=== PATIENT | female | born 1960 | race Hispanic/Latino ===

== ENCOUNTER 2018-01-02 06:35 | Inpatient (IN) | payer OTHER ==
[2018-01-01 16:58] VITALS: BP 116/67
[2018-01-01 17:13] LABS: APPEARANCE,URINE Clear (CLEAR); BILIRUBIN,URINE Negative (NEGATIVE); COLOR,URINE Yellow (YELLOW); GLUCOSE, URINE (UA) Negative (NEGATIVE); KETONES,URINE Negative (NEGATIVE); LEUKOCYTE ESTERASE ,URINE Trace (NEGATIVE); NITRATE,URINE Negative (NEGATIVE); OCCULT BLOOD,URINE Negative (NEGATIVE); PROTEIN,URINE Negative (NEGATIVE); UROBILINOGEN,URINE 0.2 mg/dL (0.2-1.0)
[2018-01-01 17:23] LABS: INR 0.95 (0.85-1.15); PARTIAL THROMBOPLASTIN TIME 23.9 SEC (26.3-35.5)
[2018-01-01 17:34] LABS: BACTERIA,URINE Rare /HPF (None Seen); RBC,URINE 0-1 /HPF (0-1); WBC,URINE 0-1 /HPF (0-1)
[2018-01-01 17:35] LABS: SQUAMOUS EPITHELIAL CELL,UR None Seen /LPF (0-2)
[~2018-01-02] VITALS: Ht 152.4 cm; Wt 91.3 kg
[2018-01-02] VITALS (21 sets, daily range): BP systolic 111–153; BP diastolic 65–90
[~2018-01-02 06:35] MED LIST: AEC81 PO; ALEN70TA47 PO; ALPR2TAB7 PO; ATOR20TA65 PO; CARV3.12 PO; CITA40TA6 PO; CLOP75TA14 PO; CYAN500 PO; DEXL60CA3 PO; FENT-77 TD; FOLI0.8T PO; FURO40TA5 PO; HYDR-4060 PO; ISOS60TA4 PO; LEVO25TA54 PO; LISI2.5T2 PO; PANT40TA25 PO; POTA10TA14 PO; PRED5TAB PO; TIZA4TAB4 PO
[2018-01-02] MEDS: CEFAZOLIN SODIUM 1 GM VIAL IVP SCH ×2 (07:00→08:22)
[2018-01-02] MEDS ORDERED: TRANEXAMIC ACID 1000MG/10ML IV ONE (07:14)
[2018-01-02] MEDS ORDERED: CEFAZOLIN SODIUM 1 GM VIAL ONE (07:14)
[2018-01-02] MEDS ORDERED: LACTATED RINGERS 1000ML 1,000 ML IV ONE (07:30)
[2018-01-02] MEDS ORDERED: ONDANSETRON HCL 4 MG/2 ML VIAL ONE (08:13)
[2018-01-02] MEDS ORDERED: GLYCOPYRROLATE 0.2 MG/ML 5 ML VIAL ONE (08:13)
[2018-01-02] MEDS ORDERED: MIDAZOLAM HCL 1 MG/ML 2ML VIAL ONE (08:13)
[2018-01-02] MEDS ORDERED: DEXAMETHASONE SOD PHOSPHATE 10MG/ML 1ML VIAL ONE (08:13)
[2018-01-02] MEDS ORDERED: PROPOFOL 10 MG/ML 20ML VIAL IV ONE (08:13)
[2018-01-02] MEDS ORDERED: LIDOCAINE PF 2% 5ML ABBOJECT ONE (08:13)
[2018-01-02] MEDS ORDERED: FENTANYL CITRATE PF 50 MCG/1 ML 2ML VIAL ONE (08:14)
[2018-01-02] MEDS ORDERED: ROPIVACAINE 0.5% 5MG/ML 30ML IJ ONE (08:19)
[2018-01-02] MEDS ORDERED: EPHEDRINE-NS PF 50MG/5ML SYRINGE IV ONE (08:24)
[2018-01-02] MEDS ORDERED: CEFAZOLIN SODIUM 1 GM VIAL IRRIG ONE (08:58)
[2018-01-02] MEDS ORDERED: BUPIVACAINE/EPI/PF 0.25% 30ML VIAL IJ ONE (09:16)
[2018-01-02] MEDS ORDERED: DIPHENHYDRAMINE HCL 25 MG CAPSULE PO PRN (10:15)
[2018-01-02] MEDS ORDERED: POTASSIUM CHLORIDE 20MEQ/100ML 100 ML IV PRN (10:15)
[2018-01-02] MEDS ORDERED: DiphenhydrAMINE HCL 50 MG/ML VIAL IVP PRN (10:15)
[2018-01-02] MEDS ORDERED: TEMAZEPAM 15 MG CAPSULE PO PRN (10:15)
[2018-01-02] MEDS ORDERED: PROMETHAZINE HCL 25 MG/ML 1ML AMPULE IM PRN (10:15)
[2018-01-02] MEDS ORDERED: POTASSIUM CHLORIDE 10% ELIXIR 20 MEQ/15 ML UDCUP PO PRN (10:15)
[2018-01-02] MEDS ORDERED: FERROUS FUMARATE 324 MG TABLET PO PRN (10:15)
[2018-01-02] MEDS ORDERED: LIDOCAINE HCL-MPF 1% 2ML VIAL IVP PRN (10:15)
[2018-01-02] MEDS ORDERED: CALCIUM CARBONATE 500 MG TABLET PO PRN (10:15)
[2018-01-02] MEDS ORDERED: MEPERIDINE-PF 50 MG/ML SYG ONE (10:43)
[2018-01-02] MEDS ORDERED: MORPHINE SULFATE 2 MG/ML 1ML SYG ONE (11:35)
[2018-01-02] MEDS: PSYLLIUM SEED 1 EACH PACKET PO SCH (12:00)
[2018-01-02] MEDS: SODIUM CHLORIDE 0.9% 1000ML 1,000 ML IV SCH ×2 (12:51→21:15)
[2018-01-02] MEDS: HYDROCODONE/ACETAMINOPHEN 5/325 MG TAB PO PRN ×2 (12:56→15:43)
[2018-01-02] MEDS: KETOROLAC TROMETHAMINE 15MG/ML IV PRN ×2 (12:56→21:20)
[2018-01-02] MEDS: CEFAZOLIN 3GM /D5W 100ML 100 ML IV SCH ×2 (15:43→23:42)
[2018-01-02] MEDS ORDERED: TIZANIDINE HCL 4 MG PO PRN (17:15)
[2018-01-02] MEDS: CELECOXIB 200 MG CAP PO SCH (21:14)
[2018-01-02] MEDS: ATORVASTATIN CALCIUM 20 MG TABLET PO SCH (21:14)
[2018-01-02] MEDS: ASPIRIN 325 MG TABLET PO SCH (21:14)
[2018-01-02] MEDS: PANTOPRAZOLE SODIUM 40 MG TABLET.DR PO SCH (21:14)
[2018-01-02] MEDS: ALPRAZOLAM 1 MG TAB PO SCH (21:15)
[2018-01-02] MEDS: CARVEDILOL 3.125 MG TABLET PO SCH (21:16)
[2018-01-03 00:07] VITALS: BP 124/71
[2018-01-03] MEDS: KETOROLAC TROMETHAMINE 15MG/ML IV PRN ×3 (03:49→20:39)
[2018-01-03 04:35] VITALS: BP 132/72
[2018-01-03] MEDS: SODIUM CHLORIDE 0.9% 1000ML 1,000 ML IV SCH (05:20)
[2018-01-03] MEDS ORDERED: LEVOTHYROXINE 25 MCG TABLET ONE (05:22)
[2018-01-03 05:51] LABS: CREATININE 0.8 mg/dL (0.5-1.5); POTASSIUM 3.9 mmol/L (3.5-5.1)
[2018-01-03 06:03] LABS: HEMATOCRIT 29.4 % (36-48); MEAN CORPUSCULAR HGB CONC 34.6 g/dL (32.0-36.0); MEAN CORPUSCULAR VOLUME 89.6 fL (79-99); PLATELET COUNT (AUTO) 186 K/uL (130-400); RED BLOOD CELL COUNT(AUTO) 3.28 MIL/uL (4.00-5.50); RED CELL DISTRIBUTION WIDTH 14.6 % (11.0-15.5)
[2018-01-03] MEDS: LEVOTHYROXINE 25 MCG TABLET PO SCH (06:19)
[2018-01-03 07:37] VITALS: BP 148/79
[2018-01-03] MEDS: ASPIRIN 325 MG TABLET PO SCH ×2 (08:00→20:35)
[2018-01-03] MEDS: CELECOXIB 200 MG CAP PO SCH ×2 (08:00→20:35)
[2018-01-03] MEDS: FOLIC ACID 1 MG TABLET PO SCH (08:01)
[2018-01-03] MEDS: CARVEDILOL 3.125 MG TABLET PO SCH ×2 (08:01→20:37)
[2018-01-03] MEDS: LISINOPRIL 2.5 MG TABLET PO SCH (08:02)
[2018-01-03] MEDS: FUROSEMIDE 40 MG TABLET PO SCH (08:02)
[2018-01-03] MEDS: POLYETHYLENE GLYCOL 3350 17 GM POWD.PACK PO SCH (08:02)
[2018-01-03] MEDS: CLOPIDOGREL BISULFATE 75 MG TAB PO SCH (08:02)
[2018-01-03] MEDS: POTASSIUM CHLORIDE 10 MEQ/TAB.SA PO SCH (08:02)
[2018-01-03] MEDS: HYDROCODONE/ACETAMINOPHEN 5/325 MG TAB PO PRN ×3 (08:03→20:59)
[2018-01-03] MEDS: PREDNISONE 5 MG TABLET PO SCH (08:05)
[2018-01-03] MEDS: ISOSORBIDE MONO 60 MG TAB.SR PO SCH (09:00)
[2018-01-03] MEDS ORDERED: PANTOPRAZOLE SODIUM 40 MG TABLET.DR PO SCH (09:00)
[2018-01-03] MEDS: ALPRAZOLAM 1 MG TAB PO SCH ×3 (09:00→20:36)
[2018-01-03] MEDS ORDERED: FENTANYL 37.5 MCG TD SCH (09:00)
[2018-01-03 11:03] VITALS: BP 132/66
[2018-01-03] MEDS: PSYLLIUM SEED 1 EACH PACKET PO SCH (11:20)
[2018-01-03 15:22] VITALS: BP 125/64
[2018-01-03] MEDS: PANTOPRAZOLE SODIUM 40 MG TABLET.DR PO SCH (20:35)
[2018-01-03] MEDS: ATORVASTATIN CALCIUM 20 MG TABLET PO SCH (20:35)
[2018-01-03 21:12] VITALS: BP 103/60
[2018-01-04] VITALS (7 sets, daily range): BP systolic 90–140; BP diastolic 51–72
[2018-01-04] MEDS: LEVOTHYROXINE 25 MCG TABLET PO SCH (06:01)
[2018-01-04 06:16] LABS: HEMATOCRIT 30.1 % (36-48); MEAN CORPUSCULAR HGB CONC 33.9 g/dL (32.0-36.0); MEAN CORPUSCULAR VOLUME 88.6 fL (79-99); PLATELET COUNT (AUTO) 171 K/uL (130-400); RED CELL DISTRIBUTION WIDTH 14.5 % (11.0-15.5)
[2018-01-04 06:19] LABS: POTASSIUM 3.6 mmol/L (3.5-5.1)
[2018-01-04] MEDS: KETOROLAC TROMETHAMINE 15MG/ML IV PRN (07:37)
[2018-01-04] MEDS: ISOSORBIDE MONO 60 MG TAB.SR PO SCH (09:00)
[2018-01-04] MEDS: LISINOPRIL 2.5 MG TABLET PO SCH (09:00)
[2018-01-04] MEDS: ASPIRIN 325 MG TABLET PO SCH ×2 (09:44→20:43)
[2018-01-04] MEDS: POTASSIUM CHLORIDE 10 MEQ/TAB.SA PO SCH (09:45)
[2018-01-04] MEDS: ALPRAZOLAM 1 MG TAB PO SCH ×3 (09:45→20:43)
[2018-01-04] MEDS: CLOPIDOGREL BISULFATE 75 MG TAB PO SCH (09:46)
[2018-01-04] MEDS: FOLIC ACID 1 MG TABLET PO SCH (09:46)
[2018-01-04] MEDS: CARVEDILOL 3.125 MG TABLET PO SCH ×2 (09:46→20:44)
[2018-01-04] MEDS: CELECOXIB 200 MG CAP PO SCH ×2 (09:47→20:43)
[2018-01-04] MEDS: FUROSEMIDE 40 MG TABLET PO SCH (09:47)
[2018-01-04] MEDS: POLYETHYLENE GLYCOL 3350 17 GM POWD.PACK PO SCH (09:47)
[2018-01-04] MEDS: PREDNISONE 5 MG TABLET PO SCH (09:47)
[2018-01-04] MEDS: POTASSIUM CHLORIDE 20 MEQ ERTAB PO PRN ×2 (09:52→11:24)
[2018-01-04] MEDS ORDERED: BISACODYL 5 MG TABLET.DR PO PRN (10:15)
[2018-01-04] MEDS: PSYLLIUM SEED 1 EACH PACKET PO SCH (11:24)
[2018-01-04] MEDS: HYDROCODONE/ACETAMINOPHEN 5/325 MG TAB PO PRN ×2 (11:28→20:44)
[2018-01-04] MEDS: ATORVASTATIN CALCIUM 20 MG TABLET PO SCH (20:43)
[2018-01-04] MEDS: PANTOPRAZOLE SODIUM 40 MG TABLET.DR PO SCH (20:43)
[2018-01-05] VITALS (7 sets, daily range): BP systolic 90–120; BP diastolic 54–71
[2018-01-05 06:24] LABS: HEMATOCRIT 27.4 % (36-48); MEAN CORPUSCULAR HEMOGLOBIN 30.9 pg (27.0-33.0); MEAN CORPUSCULAR VOLUME 88.2 fL (79-99); PLATELET COUNT (AUTO) 172 K/uL (130-400); RED CELL DISTRIBUTION WIDTH 14.4 % (11.0-15.5)
[2018-01-05] MEDS: LEVOTHYROXINE 25 MCG TABLET PO SCH (06:30)
[2018-01-05 06:32] LABS: POTASSIUM 3.8 mmol/L (3.5-5.1)
[2018-01-05] MEDS: HYDROCODONE/ACETAMINOPHEN 5/325 MG TAB PO PRN ×2 (06:33→19:23)
[2018-01-05] MEDS: ALPRAZOLAM 1 MG TAB PO SCH ×2 (09:00→13:29)
[2018-01-05] MEDS: FUROSEMIDE 40 MG TABLET PO SCH (09:00)
[2018-01-05] MEDS: ISOSORBIDE MONO 60 MG TAB.SR PO SCH (09:00)
[2018-01-05] MEDS: LISINOPRIL 2.5 MG TABLET PO SCH (09:00)
[2018-01-05] MEDS: CELECOXIB 200 MG CAP PO SCH (10:08)
[2018-01-05] MEDS: ASPIRIN 325 MG TABLET PO SCH (10:08)
[2018-01-05] MEDS: POTASSIUM CHLORIDE 10 MEQ/TAB.SA PO SCH (10:10)
[2018-01-05] MEDS: CLOPIDOGREL BISULFATE 75 MG TAB PO SCH (10:10)
[2018-01-05] MEDS: FOLIC ACID 1 MG TABLET PO SCH (10:10)
[2018-01-05] MEDS: PREDNISONE 5 MG TABLET PO SCH (10:10)
[2018-01-05] MEDS: POLYETHYLENE GLYCOL 3350 17 GM POWD.PACK PO SCH (10:11)
[2018-01-05] MEDS: KETOROLAC TROMETHAMINE 15MG/ML IV PRN (10:11)
[2018-01-05] MEDS ORDERED: BISACODYL 10 MG SUPP.RECT RC PRN (10:15)
[2018-01-05] MEDS: CARVEDILOL 3.125 MG TABLET PO SCH (12:08)
[2018-01-05] MEDS: PSYLLIUM SEED 1 EACH PACKET PO SCH (12:09)
[2018-01-05] MEDS ORDERED: ASPI-1012 PO (14:10)
== END 2018-01-05 20:30 | DRG 470 ==
LOC: DAHIP 06:35 → EDSTATUS 09:10 → 4AH 12:16
PROVIDERS: ADMIT Orthopaedic Surgery; ATTEND Orthopaedic Surgery
PROC: 0SRC0J9 Replacement of Right Knee Joint with Synthetic Substitute, Cemented, Open Approach (ICD-10-PCS; principal; 2018-01-02 08:11)
DX: M17.11 Unilateral primary osteoarthritis, right knee (principal); M06.9 Rheumatoid arthritis, unspecified; I11.9 Hypertensive heart disease without heart failure; N18.9 Chronic kidney disease, unspecified; F32.9 Major depressive disorder, single episode, unspecified; M81.0 Age-related osteoporosis without current pathological fracture; K21.9 Gastro-esophageal reflux disease without esophagitis; E66.9 Obesity, unspecified; G89.29 Other chronic pain; Z96.652 Presence of left artificial knee joint; Z68.39 Body mass index [BMI] 39.0-39.9, adult; Z98.61 Coronary angioplasty status; Z88.8 Allergy status to other drugs, medicaments and biological substances; Z82.3 Family history of stroke; Z83.3 Family history of diabetes mellitus; Z80.9 Family history of malignant neoplasm, unspecified; Z82.49 Family history of ischemic heart disease and other diseases of the circulatory system
CPT/HCPCS: 36415; 80048; 81001; 85027; 85610; 85730; 88305; 88311; 97039; A4218; C1713; J0690; J1100; J1885; J2001; J2175; J2250; J2405; J2704; J2795; J3010; J3490; J7030; J7120; J7512

== ENCOUNTER 2018-02-23 10:56 | Emergency (ER) | payer OTHER ==
[~2018-02-23 10:56] MED LIST changes: -AEC81 PO; +ASPI-1012 PO
[2018-02-23 11:26] LABS: BASOPHILS % (AUTO) 0.4 % (0.0-5.0); EOSINOPHILS % (AUTO) 0.9 % (0.0-8.0); HEMATOCRIT 29.5 % (36-48); LYMPHOCYTES % (AUTO) 9.2 % (21.0-51.0); MEAN CORPUSCULAR HEMOGLOBIN 30.4 pg (27.0-33.0); MEAN CORPUSCULAR HGB CONC 34.9 g/dL (32.0-36.0); MEAN CORPUSCULAR VOLUME 87.3 fL (79-99); MONOCYTES % (AUTO) 10.2 % (3.0-13.0); NEUTROPHILS % (AUTO) 79.3 % (40.0-77.0); PLATELET COUNT (AUTO) 211 K/uL (130-400); RED BLOOD CELL COUNT(AUTO) 3.37 MIL/uL (4.00-5.50); RED CELL DISTRIBUTION WIDTH 14.2 % (11.0-15.5); WHITE BLOOD COUNT (AUTO) 5.7 K/uL (4.8-10.8)
[2018-02-23 11:27] LABS: POTASSIUM 3.5 mmol/L (3.5-5.1)
[2018-02-23 11:44] LABS: ALBUMIN 2.9 g/dL (3.5-5.0); BILIRUBIN,TOTAL 0.2 mg/dL (0.2-1.0); CREATINE KINASE MB 1.4 ng/mL (0.5-3.6); TOTAL PROTEIN, SERUM 6.8 g/dL (6.0-8.3)
[2018-02-23 12:15] LABS: MAGNESIUM 1.3 mg/dL (1.80-2.40); PHOSPHORUS 3.4 mg/dL (2.5-4.9)
[2018-02-23] MEDS ORDERED: MAGNESIUM OXIDE 400 MG TABLET PO ONE (14:25)
== END 2018-02-23 14:45 | disposition home or self-care (01) ==
LOC: EDH 10:56
DX: R55 Syncope and collapse (principal); E83.42 Hypomagnesemia; I25.10 Atherosclerotic heart disease of native coronary artery without angina pectoris; I10 Essential (primary) hypertension; M32.9 Systemic lupus erythematosus, unspecified; M06.9 Rheumatoid arthritis, unspecified; Z90.49 Acquired absence of other specified parts of digestive tract; Z88.1 Allergy status to other antibiotic agents
CPT/HCPCS: 36415; 80053; 82550; 82553; 83735; 84100; 84484; 85025; 93005; 96360

== ENCOUNTER → 2020-01-17 | Outpatient (CLI) | payer OTHER ==
[~2020-01-17] MED LIST changes: +ALEN70TA10 PO; -ALEN70TA47 PO; -CYAN500 PO; +CYAN500T63 PO; -TIZA4TAB4 PO; +TIZA4TAB5 PO
== END | disposition home or self-care (01) ==
LOC: OIH 14:42
PROVIDERS: ATTEND Internal Medicine
DX: M06.4 Inflammatory polyarthropathy (principal)
CPT/HCPCS: 73130; 73630

== ENCOUNTER → 2021-08-09 | Outpatient (CLI) | payer OTHER ==
[~2021-08-09] MED LIST changes: -ALEN70TA10 PO; +ALEN70TA80 PO; -CYAN500T63 PO; +CYAN500T9 PO; -FOLI0.8T PO; +FOLI0.8T3 PO; -ISOS60TA4 PO; +ISOS60TA77 PO; +LISI2.5T13 PO; -LISI2.5T2 PO; -PANT40TA25 PO; +PANT40TA54 PO
== END | disposition home or self-care (01) ==
LOC: SHCH 14:43
PROVIDERS: ATTEND Internal Medicine Cardiovascular Disease
DX: I51.7 Cardiomegaly (principal)
CPT/HCPCS: 93306; 93356

== ENCOUNTER 2021-08-29 06:46 | Day surgery (SDC) | payer OTHER ==
[2021-08-23 09:22] LABS: BASOPHILS % (AUTO) 0.9 % (0.0-5.0); EOSINOPHILS % (AUTO) 2.1 % (0.0-8.0); HEMATOCRIT 39.1 % (36-48); LYMPHOCYTES % (AUTO) 17.5 % (21.0-51.0); MEAN CORPUSCULAR HEMOGLOBIN 28.8 pg (27.0-33.0); MEAN CORPUSCULAR HGB CONC 31.5 g/dL (32.0-36.0); MEAN CORPUSCULAR VOLUME 91.6 fL (79-99); NEUTROPHILS % (AUTO) 68.1 % (40.0-77.0); PLATELET COUNT (AUTO) 266 K/uL (130-400); RED BLOOD CELL COUNT(AUTO) 4.27 MIL/uL (4.00-5.50); RED CELL DISTRIBUTION WIDTH 13.4 % (11.0-15.5); WHITE BLOOD COUNT (AUTO) 5.4 K/uL (4.8-10.8)
[2021-08-23 09:24] LABS: APPEARANCE,URINE Cloudy (CLEAR); BILIRUBIN,URINE Negative (NEGATIVE); COLOR,URINE Yellow (YELLOW); GLUCOSE, URINE (UA) Negative (NEGATIVE); KETONES,URINE Negative (NEGATIVE); LEUKOCYTE ESTERASE ,URINE Large (NEGATIVE); NITRATE,URINE Positive (NEGATIVE); OCCULT BLOOD,URINE Negative (NEGATIVE); PH,URINE 7.5 (5.0-8.0); PROTEIN,URINE Negative (NEGATIVE)
[2021-08-23 09:33] LABS: PROTHROMBIN TIME 10.9 SEC (9.6-11.6)
[2021-08-23 09:34] LABS: PARTIAL THROMBOPLASTIN TIME 25.8 SEC (26.3-35.5); POTASSIUM 4.1 mmol/L (3.5-5.1)
[2021-08-23 09:43] LABS: CREATININE 0.9 mg/dL (0.5-1.5)
[2021-08-23 09:50] LABS: BACTERIA,URINE Moderate /HPF (None Seen)
[2021-08-23 09:51] LABS: RBC,URINE 0-1 /HPF (0-1); SQUAMOUS EPITHELIAL CELL,UR 0-2 /HPF (0-2)
[2021-08-28 15:47] VITALS: BP 105/58
[2021-08-29] VITALS (10 sets, daily range): BP systolic 98–118; BP diastolic 56–62
[~2021-08-29] VITALS: Ht 152.4 cm; Wt 70.8 kg
[~2021-08-29 06:46] MED LIST changes: +ACET-2743 PO; -ALEN70TA80 PO; -ALPR2TAB7 PO; +APIX5TAB PO; -ASPI-1012 PO; -ATOR20TA65 PO; +ATOR40TA71 PO; +BUSP10TA3 PO; -CARV3.12 PO; -CITA40TA6 PO; -CLOP75TA14 PO; -CYAN500T9 PO; -DEXL60CA3 PO; -FENT-77 TD; -FOLI0.8T3 PO; +FURO20TA4 PO; -FURO40TA5 PO; +GABA-529 PO; -HYDR-4060 PO; -ISOS60TA77 PO; +METO-408 PO; +MIRT-22 PO; +OMEP40CA21 PO; -PANT40TA54 PO; -TIZA4TAB5 PO; +VENL-63 PO; +iron PO
[2021-08-29] MEDS ORDERED: 0.9%NACL 1000ML 1,000 ML IV ONE (07:13)
[2021-08-29] MEDS ORDERED: IOHEXOL 350 MG/ML 100ML INFUS..BTL IV ONE (08:13)
[2021-08-29] MEDS ORDERED: IOHEXOL-350 50ML VIAL IV ONE (08:13)
[2021-08-29] MEDS ORDERED: NITROGLYCERIN 50MG VIAL IV ONE (08:13)
[2021-08-29] MEDS ORDERED: LIDOCAINE HCL 400MG/20ML VIAL ONE (08:13)
[2021-08-29] MEDS ORDERED: IOHEXOL-350 75 ML VIAL IV ONE (09:13)
== END 2021-08-29 14:30 | disposition home or self-care (01) ==
LOC: DAH 06:46
PROVIDERS: ATTEND Internal Medicine Cardiovascular Disease
DX: I25.10 Atherosclerotic heart disease of native coronary artery without angina pectoris (principal); I25.810 Atherosclerosis of coronary artery bypass graft(s) without angina pectoris; I25.5 Ischemic cardiomyopathy; I25.82 Chronic total occlusion of coronary artery; I11.0 Hypertensive heart disease with heart failure; I50.23 Acute on chronic systolic (congestive) heart failure; I33.0 Acute and subacute infective endocarditis; I25.2 Old myocardial infarction; M06.9 Rheumatoid arthritis, unspecified; E78.5 Hyperlipidemia, unspecified; E03.9 Hypothyroidism, unspecified; M32.9 Systemic lupus erythematosus, unspecified; Z87.891 Personal history of nicotine dependence; Z82.49 Family history of ischemic heart disease and other diseases of the circulatory system; Z83.3 Family history of diabetes mellitus; Z80.0 Family history of malignant neoplasm of digestive organs; Z82.0 Family history of epilepsy and other diseases of the nervous system; Z83.2 Family history of diseases of the blood and blood-forming organs and certain disorders involving the immune mechanism; Z90.49 Acquired absence of other specified parts of digestive tract; Z98.51 Tubal ligation status; Z86.73 Personal history of transient ischemic attack (TIA), and cerebral infarction without residual deficits; Z98.890 Other specified postprocedural states; Z79.899 Other long term (current) drug therapy; Z79.01 Long term (current) use of anticoagulants; Z95.5 Presence of coronary angioplasty implant and graft; Z88.8 Allergy status to other drugs, medicaments and biological substances
CPT/HCPCS: 36415; 71045; 80048; 81001; 85025; 85610; 85730; 87077; 87088; 87186; 93005; 93459; C1760; C1894; J1644; J3490 ×2; J7030; Q9965; Q9967 ×2

== ENCOUNTER → 2022-07-09 | Outpatient (CLI) | payer OTHER | END | disposition home or self-care (01) | LOC: SHCH 10:55 | PROVIDERS: ATTEND Internal Medicine Cardiovascular Disease | DX: I34.0 Nonrheumatic mitral (valve) insufficiency (principal); I11.9 Hypertensive heart disease without heart failure; I48.91 Unspecified atrial fibrillation; I25.10 Atherosclerotic heart disease of native coronary artery without angina pectoris; I25.2 Old myocardial infarction; Z95.5 Presence of coronary angioplasty implant and graft; Z95.1 Presence of aortocoronary bypass graft | CPT/HCPCS: 93306 ==

== ENCOUNTER → 2022-08-05 | Outpatient (CLI) | payer OTHER ==
[2022-08-05 12:45] LABS: CREATININE 0.9 mg/dL (0.5-1.5); POTASSIUM 4.4 mmol/L (3.5-5.1)
== END | disposition home or self-care (01) ==
LOC: LAB 09:38
PROVIDERS: ATTEND Internal Medicine Cardiovascular Disease
DX: I10 Essential (primary) hypertension (principal)
CPT/HCPCS: 36415; 80048

== ENCOUNTER → 2023-03-07 | Outpatient (CLI) | payer OTHER ==
[2023-03-07 12:34] LABS: POTASSIUM 4.6 mmol/L (3.5-5.1)
== END | disposition home or self-care (01) ==
LOC: LAB 10:03
PROVIDERS: ATTEND Internal Medicine Cardiovascular Disease
DX: I10 Essential (primary) hypertension (principal)
CPT/HCPCS: 36415; 80048

== ENCOUNTER → 2023-03-14 | Outpatient (CLI) | payer OTHER ==
[2023-03-14 12:12] LABS: CREATININE 0.9 mg/dL (0.5-1.5); POTASSIUM 4.3 mmol/L (3.5-5.1)
== END | disposition home or self-care (01) ==
LOC: LAB 09:30
PROVIDERS: ATTEND Internal Medicine Cardiovascular Disease
DX: I10 Essential (primary) hypertension (principal)
CPT/HCPCS: 36415; 80048

== ENCOUNTER → 2023-03-21 | Outpatient (CLI) | payer OTHER ==
[2023-03-21 12:29] LABS: CREATININE 0.9 mg/dL (0.5-1.5); POTASSIUM 4.3 mmol/L (3.5-5.1)
== END | disposition home or self-care (01) ==
LOC: LAB 09:45
PROVIDERS: ATTEND Internal Medicine Cardiovascular Disease
DX: I10 Essential (primary) hypertension (principal)
CPT/HCPCS: 36415; 80048

== ENCOUNTER → 2023-04-04 | Outpatient (CLI) | payer OTHER ==
[2023-04-04 12:37] LABS: CREATININE 1.1 mg/dL (0.5-1.5); POTASSIUM 4.6 mmol/L (3.5-5.1)
== END | disposition home or self-care (01) ==
LOC: LAB 10:08
PROVIDERS: ATTEND Internal Medicine Cardiovascular Disease
DX: I10 Essential (primary) hypertension (principal)
CPT/HCPCS: 36415; 80048

== ENCOUNTER 2023-11-07 12:08 | Emergency (ER) | payer OTHER ==
[~2023-11-07] VITALS: Ht 152.4 cm; Wt 56.7 kg
[2023-11-07 13:09] LABS: HEMATOCRIT 36.2 % (36-48); MEAN CORPUSCULAR HEMOGLOBIN 30.8 pg (27.0-33.0); MEAN CORPUSCULAR HGB CONC 31.5 g/dL (32.0-36.0); MEAN CORPUSCULAR VOLUME 97.8 fL (79-99); PLATELET COUNT (AUTO) 214 K/uL (130-400); RED CELL DISTRIBUTION WIDTH 15.3 % (11.0-15.5)
[2023-11-07 13:23] LABS: ALBUMIN 2.5 g/dL (3.5-5.0); POTASSIUM 3.1 mmol/L (3.5-5.1)
[2023-11-07 13:28] LABS: BILIRUBIN,TOTAL 0.5 mg/dL (0.2-1.0); TOTAL PROTEIN, SERUM 5.9 g/dL (6.0-8.3)
[2023-11-07] MEDS ORDERED: KCL 20 MEQ ERTAB PO ONE (14:30)
[2023-11-07] MEDS ORDERED: LACTATED RINGERS 1000ML 500 ML IV ONE (14:30)
[2023-11-07] MEDS ORDERED: POTA-364 PO (14:33)
[2023-11-07 14:49] LABS: BASOPHILS # (AUTO) 0.05 K/uL (0.00-0.20); BASOPHILS % (AUTO) 0.6 % (0.0-5.0); IMMATURE GRANULOCYTE ABSOLUTE 0.12 K/uL (0-1); LYMPHOCYTES # (AUTO) 0.4 K/uL (1.0-4.8); LYMPHOCYTES % (AUTO) 5.4 % (21.0-51.0); MONOCYTES # (AUTO) 0.2 K/uL (0.1-1.0); MONOCYTES % (AUTO) 2.9 % (3.0-13.0); NEUTROPHILS % (AUTO) 89.6 % (40.0-77.0)
[2023-11-07 16:47] VITALS: BP 100/59; PULSE 85; RESP 18; O2SAT 98
== END 2023-11-07 17:48 | disposition home or self-care (01) ==
LOC: EDH 12:08
DX: I95.2 Hypotension due to drugs (principal); E87.6 Hypokalemia; I10 Essential (primary) hypertension; E03.9 Hypothyroidism, unspecified; Z79.899 Other long term (current) drug therapy; Z90.49 Acquired absence of other specified parts of digestive tract; Z98.890 Other specified postprocedural states; Z88.8 Allergy status to other drugs, medicaments and biological substances
CPT/HCPCS: 99284; 70450; 96360; 96361; 84484; 80053; 85025; 36415; 70486; 93005; J7120

== ENCOUNTER → 2023-12-10 | Outpatient (CLI) | payer OTHER ==
[~2023-12-10] MED LIST changes: +POTA-364 PO
== END | disposition home or self-care (01) ==
LOC: SHCH 08:20
PROVIDERS: ATTEND Internal Medicine Cardiovascular Disease
DX: I70.202 Unspecified atherosclerosis of native arteries of extremities, left leg (principal)
CPT/HCPCS: 93925

== ENCOUNTER 2024-09-10 19:46 | Inpatient (IN) | payer OTHER ==
[~2024-09-10] VITALS: Ht 149.9 cm; Wt 62.1 kg
[~2024-09-10 19:46] MED LIST changes: +rocuRONium bROMide 10MG/1ML 5ML VL IV ONE
--- NOTE | 2024-09-10 20:04 | ERN ---
ED Note History of Present Illness Stated Complaint: GBW, SOB X 2 DAYS Chief Complaint: Dyspnea/Respdistress Time Seen by MD: 19:51 Dictation: This is a 63-year-old female who was brought in by EMS with complaints of shortness of breath for 2 days with cough and congestion associated with generalized weakness. Very poor historian and appeared extremely sick at presentation. This has been going on overall for 2 days. She does report some mucopurulent sputum. No history of any syncope Reports feeling hot . Temperature 102.6, heart rate 133, respiratory rate 37, blood pressure 115/74 with a pulse oximetry of 80-85% on room air Her chronic medical problems include atrial fibrillation on long-term apixaban, coronary artery disease status post stent to LAD, aortic valve replacement s urgery, hypothyroidism, hypercholesterolemia. Rheumatoid arthritis and systemic lupus erythematosus Allergies: Coded Allergies: ciprofloxacin (Unverified Allergy, Severe, SHUTS DOWN ORGANS, 03/11/13) ciprofloxacin HCl (Unverified Allergy, Severe, SHUTS DOWN ORGANS, 03/11/13) vancomycin (Unverified Allergy, Unknown, 08/28/21) Home Meds Active Scripts Potassium Chloride (Potassium Chloride) 20 Meq Tablet.er, 20 MEQ PO DAILY for 10 Days, #10 TAB 0 Refills Prov:NANCY MCINTOSH MD 11/07/23 Reported Medications Gabapentin (Gabapentin) 100 Mg Capsule, 100 MG PO BID, CAP 08/28/21 [iron] No Conflict Check, 28 MG PO AM 08/28/21 Furosemide (Furosemide) 20 Mg Tablet, 20 MG PO AM, TAB 08/28/21 Metoprolol Succinate (Metoprolol Succinate) 25 Mg Tab.er.24h, 25 MG PO BID, TAB 08/28/21 Mirtazapine (Mirtazapine) 15 Mg Tablet, 15 MG PO HS, TAB 08/28/21 Atorvastatin Calcium (Atorvastatin Calcium) 40 Mg Tablet, 40 MG PO AM, TAB 08/28/21 Buspirone HCl (Buspirone HCl) 10 Mg Tablet, 10 MG PO HS, TAB 08/28/21 Prednisone (Prednisone) 5 Mg Tablet, 5 MG PO AM, TAB 08/28/21 Venlafaxine HCl (Venlafaxine HCl ER) 150 Mg Cap.er.24h, 150 MG PO AM, CAPSULE.DR 08/28/21 Acetaminophen (Tylenol Extra Strength) 500 Mg Tablet, 500 MG PO AD PRN for pain, TAB 08/28/21 Omeprazole (Omeprazole) 40 Mg Capsule.dr, 40 MG PO BID, CAP 08/28/21 Apixaban (Eliquis) 5 Mg Tablet, 5 MG PO BID, TAB 08/28/21 Levothyroxine Sodium (Levothyroxine Sodium) 25 Mcg Tablet, 25 MCG PO DAILY, TAB 09/30/17 Potassium Chloride (Potassium Chloride) 10 Meq Tablet.er, 10 MEQ PO DAILY, TAB 09/30/17 Lisinopril (Lisinopril) 2.5 Mg Tablet, 2.5 MG PO DAILY, TAB 10/12/14 Past Medical History Past Medical History: CVA, Heart Disease, Hypertension, Hypothyroid Additional Past Medical Hx: RHEUMATOID ARTHRITIS, LUPUS Surgical History: Cholecystectomy, CABG, Pacer/AICD Surgical History Other: BILATERAL KNEES Family History: Negative Social History: Negative History: Not Applicable RN Note Reviewed/Agreed w/PFSH: Yes Review of System Dictation Constitutional: Positive for fever,chills, and weight loss, malaise and w eakness Eyes: Negative for injury, pain,redness, and discharge ENT: Negative for injury,pain or swelling Cardiovascular: Negative for chest pain, palpitations, and edema Respiratory: Positive for shortness of breath, cough, and denies wheezing, Abdomen/GI: Negative for abdominal pain, nausea, vomiting, diarrhea, and constipation Back: Negative for injury and pain : Negative for injury, bleeding and discharge MS/Extremity: Negative for injury and deformity Skin: Negative for rash, and discoloration Neuro: Negative for headache, weakness, numbness, tingling, and seizure Psych: Negative for suicide ideation, homicidal ideation, and hallucinations Initial Vital Sign VS Vital Signs Date Time Temp Pulse Resp B/P (MAP) Pulse Ox O2 Delivery O2 Flow Rate FiO2 09/10/24 19:53 102.6 133 37 115/74 99 Nasal Cannula* 2 28 Physical Exam Dictation General: awake, alert, mildly tachypneic, very ill-appearing, toxic Head/Face: Normocephalic, atraumatic Eyes: PERRL, EOMI, vision at baseline ENT: oral cavity clear, TMs dry, no signs of infection Neck: Trachea midline, supple, no nuchal rigidity Cardiovascular: Tachycardic, No MRGs, no JVD Respiratory: Bilateral diffuse coarse rhonchi Abdomen: Soft, non-tender, non-distended, normal bowel sounds, no guarding or rebound. Skin: Warm, dry, normal turgor, no rash diffuse ecchymosis all over the body MS/Extremity: Pulses equal, no cyanosis, neurovascular intact, FROM Neuro: COAx4, GCS 15, strength 5/5, CN 2-12 intact, extremely weak and sick-I did not test her gait Psych: Normal behavior, mood, and affect normal Extremities-trace edema without any palpable cords, Homans sign is negative Results (Laboratory/Radiology) Laboratory/Radiology Laboratory Tests Test 09/10/24 19:55 09/10/24 20:11 09/10/24 20:22 White Blood Count 14.2 K/uL (4.8-10.8) H Red Blood Count 3.91 MIL/uL (4.00-5.50) L Hemoglobin 12.7 g/dL (12.0-16.0) Hematocrit 37.8 % (36-48) Mean Corpuscular Volume 96.7 fL (79-99) Mean Corpuscular Hemoglobin 32.5 pg (27.0-33.0) Mean Corpuscular Hemoglobin Concent 33.6 g/dL (32.0-36.0) Red Cell Distribution Width 13.2 % (11.0-15.5) Platelet Count 208 K/uL (130-400) Mean Platelet Volume 9.9 fL (7.5-10.5) Immature Granulocyte % (Auto) 0.9 % (0-1) Neutrophils (%) (Auto) 86.9 % (40.0-77.0) H Lymphocytes (%) (Auto) 5.4 % (21.0-51.0) L Monocytes (%) (Auto) 4.6 % (3.0-13.0) Eosinophils (%) (Auto) 1.8 % (0.0-8.0) Basophils (%) (Auto) 0.4 % (0.0-5.0) Neutrophils # (Auto) 12.3 K/uL (1.8-7.7) H Lymphocytes # (Auto) 0.8 K/uL (1.0-4.8) L Monocytes # (Auto) 0.7 K/uL (0.1-1.0) Eosinophils # (Auto) 0.25 K/uL (0.00-0.70) Basophils # (Auto) 0.06 K/uL (0.00-0.20) Absolute Immature Granulocyte (auto 0.13 K/uL (0-1) Nucleated Red Blood Cells 0.0 % (0.0-0.19) White Cell Morphology Comment See comments Sodium Level 120 mmol/L (136-145) L Potassium Level 3.7 mmol/L (3.5-5.1) Chloride Level 85 mmol/L (101-111) *L Carbon Dioxide Level 20 mmol/L (21-32) L Blood Urea Nitrogen 11 mg/dL (7-18) Creatinine 1.3 mg/dL (0.5-1.0) H Glomerular Filtration Rate Calc 46 mL/min (>90) Random Glucose 57 mg/dL (70-105) L Lactic Acid Level 7.2 mmol/L (0.8-2.5) H Total Calcium 8.4 mg/dL (8.5-10.1) L Total Creatine Kinase 635 U/L (21-232) #*H Troponin I High Sensitivity 140.3 ng/L (4-50) *H Influenza Type A Antigen Negative For Type A Influenza Type B Antigen Negative For Type B SARS-CoV-2 Antigen (Rapid) PRESUMPTIVE NEGATIVE Group A Streptococcus Rapid negative (NEGATIVE) Blood Gas Specimen Type Arterial Arterial Blood pH 7.423 (7.350-7.450) Arterial Blood Partial Pressure CO2 18 mmHg (32-45) *L Arterial Blood Partial Pressure O2 108.7 mmHg (83.0-108.0) H Arterial Blood HCO3 11.5 mmol/L (21.0-28.0) L Arterial Blood Oxygen Saturation 97.9 % (94.0-98.0) Arterial Blood Base Excess -10.5 mmol/L (-2.0-3.0) L Hemoglobin (Blood Gas) 12.7 g/dL (12.0-16.0) Sodium (Blood Gas) 121 MMOL/L (136-145) L Bedside Potassium (Blood Gas) 3.5 MMOL/L (3.4-4.5) Bedside Chloride (Blood Gas) 94 MMOL/L (98-107) L Bedside Glucose (Blood Gas) 49 MG/DL (65-95) *L Bedside Ionized Calcium (Blood Gas) 1.05 MMOL/L (1.15-1.33) L Bedside Lactic Acid (Blood Gas) 4.38 MMOL/L (0.36-0.75) *H Blood Gas Temperature 37.0 CELSIUS (35.5-37.0) Blood Gas Flow-by 15.00 L/min (0.00-15.00) Blood Gas Vent Mode NRBM (ROOM AIR) FiO2 100.0 % Blood Gas Specimen Comment LB DR. HUTCHINS Labs Reviewed?: Yes Ultrasound Comment: Echocardiogram-July 23, 2022 Left Ventricle The left ventricle structure and function is normal. Apical hypokinesis. There is normal left ventricular wall thickness. The Ejection Fraction is 40-45%. Grade 1 diastolic dysfunction Right Ventricle The right ventricle is normal size. The right ventricular systolic function is normal. Atria The left atrium is mildly dilated. Aortic Valve The aortic valve is normal in structure and function. Trace aortic regurgitation. There is no aortic valvular stenosis. Mitral Valve The mitral valve is normal in structure and function. Mitral regurgitation is mild. There is no mitral valve stenosis. Tricuspid Valve The tricuspid valve is normal in structure and function. There is no tricuspid valve regurgitation noted. Pulmonic Valve Pulmonic valve is not well visualized. Great Vessels The aortic root is normal in size. Pericardium No pericardial effusion. Other Information Quality : Fair Conclusion Apical hypokinesis. The Ejection Fraction is 40-45%. Grade 1 diastolic dysfunction Trace aortic regurgitation. Mitral regurgitation is mild. DICTATED BY: ARELI RIVERA MD DATE: 07/09/22 1112 ELECTRONICALLY SIGNED BY: ARELI RIVERA MD DATE: 07/12/22 09 ED Course ED Course Orders Procedure Category Date Status Time O2 Nc Keep Sats CPOE 09/10/24 Transmitted Greater 92% 19:53 Notify : Spo2 < 88% CPOE 09/10/24 Transmitted 19:53 Cbc With Differential LAB 09/10/24 In Process 19:53 B-Type Natriuretic LAB 09/10/24 In Process Peptide 19:53 Cardiac Panel LAB 09/10/24 Complete 19:53 Chest 1vw RAD 09/10/24 Taken 19:53 12 Lead Ekg Tracing- EKG 09/10/24 Complete Technical 19:53 Basic Metabolic Panel LAB 09/10/24 Complete 19:53 Ipratropium/Albuterol PHA 09/10/24 Complete Neb (Duoneb) 20:30 Arterial Blood Gas RT 09/10/24 Transmitted 20:04 Bipap Settings RT 09/10/24 Transmitted 20:04 Blood Cult KAREY 09/10/24 Logged 20:06 Urinalysis Profile LAB 09/10/24 Logged 20:06 Lactic Acid LAB 09/10/24 Complete 20:06 Acetaminophen 500mg PHA 09/10/24 Complete Tab (Tylenol 500mg T 20:30 Influenza Type A & B, LAB 09/10/24 Complete Rapid 20:08 Rapid (Group A Strep) LAB 09/10/24 Complete 20:08 Covid19 (Sars Antigen LAB 09/10/24 Complete Rapid) 20:08 Arterial Blood Gas LAB 09/10/24 Complete Arterial + 20:22 Sodium Bicarb 50meq PHA 09/10/24 Complete 50ml Vial (Sodium Bi 20:30 Dextrose 50%-Water PHA 09/10/24 Complete (D50w) 20:30 Zosyn 3.375gm+Ns 50ml PHA 09/10/24 In Process (Zosyn 3.375gm+Ns 21:00 Linezolid 600 PHA 09/10/24 In Process Mg/Iso-Osm (Zyvox 600 21:00 Current Medications Medications (Trade) Dose Ordered Sig/Rigo Route PRN Reason Start Time Stop Time Status Last Admin Dose Admin Acetaminophen (TYLenol 500MG TAB) 1,000 mg ONCE ONCE PO 09/10/24 20:30 09/10/24 20:31 DC 09/10/24 20:17 Albuterol (DUOneb) 1 UDVIAL ONCE ONCE IH 09/10/24 20:30 09/10/24 20:31 DC 09/10/24 20:37 Dextrose (D50w) 50 ml ONCE ONCE IV 09/10/24 20:30 09/10/24 20:31 DC 09/10/24 20:40 Linezolid 300 ml @ 150 mls/hr ONCE IV 09/10/24 21:00 09/20/24 20:59 09/10/24 20:42 Piperacillin Sod/ Tazobactam Sod (Zosyn 3.375gm+NS 50ml) 3.375 gm ONCE ONCE IV 09/10/24 21:00 09/10/24 21:01 09/10/24 20:42 Sodium Bicarbonate (Sodium Bicarb 50meq 50ml Vial) 50 meq ONCE ONCE IV 09/10/24 20:30 09/10/24 20:31 DC 09/10/24 20:40 Vital Signs Date Time Temp Pulse Resp B/P (MAP) Pulse Ox O2 Delivery O2 Flow Rate FiO2 09/10/24 20:37 126 36 09/10/24 20:17 102.9 09/10/24 19:53 102.6 133 37 115/74 99 Nasal Cannula 2.0 09/10/24 19:53 102.6 133 37 115/74 99 Nasal Cannula* 2 28 We will perform diagnostic labs, advanced imaging and administer medications according to the patient's complaint. Once the results are available, will review and personally interpreted the labs to rule out any acute life- threatening emergency the trach require immediate intervention and treatment. I will then re-evaluate the patient after treatment and diagnostic exams have return to determine whether the patient requires any further testing, can safely be discharged home or need further admission to hospital for additional treatment and evaluation. Sepsis pathway initiated Stat ABG and BiPAP as the initial step 8:49 p.m. labs reviewed CBC shows a leukocytosis of 14.2 BNP 7 is significant for hyponatremia and hypochloremia at 1:20 a.m. and 85 patient is also hypoglycemic at 46. Lactate is 7.2. ABG showed a pH of 7.42 pCO2 of 18 PO2 of 108 Chest x-ray bilateral perihilar hazy infiltrates radiology report is pending at this time 9:09 p.m.-patient accepted by [facility] for admission to ICU and further management Medical Decision Making MDM MDM: Differential diagnosis: Rationale: Tests considered and ordered secondary to shared decision making include: labs, ECG and radiology Previous outside records reviewed: Old ER visits. Risk of complication and/or morbidity or mortality of patient management: None Medications-Per medication reconciliation Need for hospitalization: Patient does meet criteria for hospitalization. Need for emergency major/minor surgery: No There are no social concerns with this patient. Prescription drug management Prescriptions will include symptomatic care Patient's prior external medical records from other ER visits were reviewed by me as indicated. Prior testing and results from previous visits were reviewed. Prior tests were taken into account with medical decision making and resource utilization, independent historian/historians were used to obtain complete medical history. I independently interpreted the test that were performed, results were reviewed by me and considered findings on radiology if ordered. Medical management and examination interpretation discussions were had by me with other qualified healthcare professionals as indicated for the patient's care. Problem List Problem List: (1) Septic shock (2) Acute hypoxemic respiratory failure (3) Generalized weakness (4) Hypoglycemia (5) Hyponatremia (6) Hypochloremia (7) Leukocytosis (8) Adrenal insufficiency (9) Steroid myopathy (10) Lupus (systemic lupus erythematosus) (11) Acute kidney injury (12) Lactic acidosis (13) Rhabdomyolysis (14) NSTEMI (non-ST elevated myocardial infarction) (15) Prolonged QT syndrome Critical Care Note Critical Time: 45 minutes Comment(s) Life-threatening illness;-septic shock, severe hypoglycemia, acute hypoxemic respiratory failure, severe dehydration, likely relative adrenal insufficiency, generalized body weakness(maybe related to steroid myopathy) Risk of morbidity mortality-high Complexity of medical decision making-high (X) high probability of sudden clinically significant deterioration in the patient's condition required the highest level of my preparedness to intervene urgently. I provided critical care services requiring my direct and personal management as noted below; (x) chart data review (x) reviewing nurse's notes and/charts (x) documentation time (x) consultation collaboration on findings and therapy options (x) medication orders and management (x) re-evaluations (x) care, transfer of care, and discharge plans (x) ordering and interpreting studies (x) ordering and reviewing labs (x) obtaining necessary history from family, EMS, penitentiary, private MD, surrogate decision makers because patient was unable to give history due to limitations in the mental status (x) aggregate critical care time was ( 45 ) minutes. This includes only time during which I was engaged in work directly related to the patient's care as described above whether at the bedside or elsewhere in the ER while the patient was critical. My time did not include minutes spent treating any other patients simultaneously or on activities that did not directly contribute to the patient 's treatment. It did not include time spent performing other reported procedures or services of residents if any. Karina BECKCP DX & DISP Disposition: Inpatient Decision to Admit Time: 20:42 Departure Impression: Primary Impression: Septic shock Additional Impressions: Acute hypoxemic respiratory failure, Leukocytosis, Acute kidney injury, Hyponatremia, Hypochloremia, Hypoglycemia, Adrenal insufficiency, Steroid myopathy, Rheumatoid arthritis, Lupus (systemic lupus erythematosus), Generalized weakness, Rhabdomyolysis, Lactic acidosis, NSTEMI (non-ST elevated myocardial infarction), Prolonged QT syndrome Condition: Stable Additional Instructions: Patient was informed of all the diagnostic labs and procedures conducted in the emergency room today and demonstrated understanding of the results. I personally reviewed and interpreted all the diagnostic exams performed in the ER today. The patient will be admitted to the hospital for further treatment and evaluation. Disposition-admit to facility Condition-stable/guarded Course-uncertain at this time Pain status-decreased Assessment-exam unchanged Admission Certification- I certify that the patients status is appropriate and is based on my best clinical judgment and the patient's condition as documented in the medical records Referrals: LYNDA BAILEY MD (PCP) KARINA HUTCHINS MD Sep 10, 2024 20:04
[2024-09-10 20:09] LABS: BASOPHILS # (AUTO) 0.06 K/uL (0.00-0.20); BASOPHILS % (AUTO) 0.4 % (0.0-5.0); EOSINOPHILS # (AUTO) 0.25 K/uL (0.00-0.70); EOSINOPHILS % (AUTO) 1.8 % (0.0-8.0); HEMATOCRIT 37.8 % (36-48); IMMATURE GRANULOCYTE ABSOLUTE 0.13 K/uL (0-1); LYMPHOCYTES # (AUTO) 0.8 K/uL (1.0-4.8); LYMPHOCYTES % (AUTO) 5.4 % (21.0-51.0); MEAN CORPUSCULAR HEMOGLOBIN 32.5 pg (27.0-33.0); MEAN CORPUSCULAR HGB CONC 33.6 g/dL (32.0-36.0); MEAN CORPUSCULAR VOLUME 96.7 fL (79-99); MONOCYTES # (AUTO) 0.7 K/uL (0.1-1.0); MONOCYTES % (AUTO) 4.6 % (3.0-13.0); NEUTROPHILS # (AUTO) 12.3 K/uL (1.8-7.7); NEUTROPHILS % (AUTO) 86.9 % (40.0-77.0); PLATELET COUNT (AUTO) 208 K/uL (130-400); RED BLOOD CELL COUNT(AUTO) 3.91 MIL/uL (4.00-5.50); RED CELL DISTRIBUTION WIDTH 13.2 % (11.0-15.5); WHITE BLOOD COUNT (AUTO) 14.2 K/uL (4.8-10.8)
[2024-09-10 20:17] VITALS: PULSE 130; RESP 33; O2SAT 99
[2024-09-10] MEDS: acetaMINOPHEN 500 MG TABLET PO ONE (20:17)
[2024-09-10 20:26] LABS: ABG BASE EXCESS -10.5 mmol/L (-2.0-3.0); ABG HCO3 11.5 mmol/L (21.0-28.0); ABG OXYGEN SATURATION 97.9 % (94.0-98.0); ABG PCO2 18 mmHg (32-45); ABG PH 7.423 (7.350-7.450); CARBON MONOXIDE 0.4 % (0.5-1.5); HHb 2.1; PO2, ARTERIAL BG 108.7 mmHg (83.0-108.0); VENT MODE, BG NRBM (ROOM AIR)
--- NOTE | 2024-09-10 20:28 | EKG ---
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
[2024-09-10 20:35] LABS: CREATININE 1.3 mg/dL (0.5-1.0); POTASSIUM 3.7 mmol/L (3.5-5.1)
[2024-09-10 20:37] VITALS: PULSE 126; RESP 36
[2024-09-10 20:37] LABS: RAPID GROUP A STREP negative (NEGATIVE)
[2024-09-10] MEDS: IpraTROPium/alBUTERol SULFATE 3 ML SOLUTION IH ONE (20:37)
[2024-09-10] MEDS: SODIUM BICARB 50MEQ 50ML VIAL IV ONE ×2 (20:40→21:45)
[2024-09-10] MEDS: DEXTROSE 50%-WATER 50 ML DISP.SYRIN IV ONE (20:40)
[2024-09-10] MEDS: ZOSYN 3.375GM +NS 50ML IV ONE (20:42)
[2024-09-10] MEDS: LINEZOLID 600 MG/ISO-OSM 300 ML IV SCH (20:42)
[2024-09-10 20:47] LABS: COVID19 (SARS ANTIGEN RAPID) PRESUMPTIVE NEGATIVE (NEGATIVE); INFLUENZA TYPE A Negative For Type A (NEGATIVE); INFLUENZA TYPE B Negative For Type B (NEGATIVE)
[2024-09-10 21:12] LABS: B-TYPE NATRIURETIC PEPTIDE 2250 pg/mL (0-100)
[2024-09-10 21:53] LABS: ABG BASE EXCESS -0.1 mmol/L (-2.0-3.0); ABG HCO3 21.7 mmol/L (21.0-28.0); ABG OXYGEN SATURATION 99.2 % (94.0-98.0); ABG PCO2 27 mmHg (32-45); ABG PH 7.519 (7.350-7.450); CARBON MONOXIDE 0.3 % (0.5-1.5); HHb 0.8; PO2, ARTERIAL BG 368.1 mmHg (83.0-108.0); VENT MODE, BG BIPAP 14-6 (ROOM AIR)
[2024-09-10] MEDS: DEXTROSE 5 % AND 0.9 % NACL 1,000 ML IV ONE (21:59)
[2024-09-10 22:02] VITALS: PULSE 120; RESP 30; O2SAT 99
--- NOTE | 2024-09-10 23:33 | HMCIMG ---
CHEST 1VW HISTORY: Dyspnea COMPARISON: 08/23/2021 FINDINGS: A frontal projection of the chest was obtained. There are bilateral pulmonary infiltrates suggestive of pulmonary vascular congestion with possible superimposed pneumonitis. Poststernotomy changes are seen. The heart is enlarged. Degenerative changes of the thoracolumbar spine are present. Pacemaker is seen entering from the left. No evidence of aortic calcification is seen. IMPRESSION: 1. Bilateral pulmonary infiltrates are seen suggestive of pulmonary vascular congestion with possible superimposed pneumonitis.
[2024-09-11] VITALS (62 sets, daily range): BP systolic 90–136; BP diastolic 48–68; PULSE 87–126; RESP 12–34; TEMP 97.7–101.1; O2SAT 95–100
[2024-09-11] MEDS: ZOSYN 3.375GM +NS 50ML IV SCH (01:00)
[2024-09-11] MEDS ORDERED: acetaMINOPHEN 650 MG SUPPOSITORY RC PRN (01:30)
[2024-09-11] MEDS ORDERED: LAbetaLOL 20MG SYG IV PRN (01:30)
[2024-09-11] MEDS ORDERED: ondanSETRON 4MG INJ IVP PRN (01:30)
[2024-09-11] MEDS: Solu-medROL 40MG VIAL IVP SCH ×2 (02:25→20:58)
[2024-09-11] MEDS ORDERED: SACU1TAB PO (02:45)
[2024-09-11] MEDS ORDERED: METH2.5T6 PO (02:45)
[2024-09-11] MEDS ORDERED: AMIO100T4 PO (02:45)
[2024-09-11] MEDS ORDERED: FOLI0.4T6 PO (02:45)
[2024-09-11] MEDS ORDERED: HYDR200T75 PO (02:45)
[2024-09-11 05:13] LABS: HEMATOCRIT 34.4 % (36-48); MEAN CORPUSCULAR HEMOGLOBIN 33.1 pg (27.0-33.0); MEAN CORPUSCULAR HGB CONC 34.3 g/dL (32.0-36.0); MEAN CORPUSCULAR VOLUME 96.6 fL (79-99); RED BLOOD CELL COUNT(AUTO) 3.56 MIL/uL (4.00-5.50); RED CELL DISTRIBUTION WIDTH 13.1 % (11.0-15.5); WHITE BLOOD COUNT (AUTO) 11.1 K/uL (4.8-10.8)
[2024-09-11 05:23] LABS: ABG BASE EXCESS -0.4 mmol/L (-2.0-3.0); ABG HCO3 21.8 mmol/L (21.0-28.0); ABG OXYGEN SATURATION 98.9 % (94.0-98.0); ABG PCO2 30 mmHg (32-45); ABG PH 7.483 (7.350-7.450); VENT MODE, BG BIPAP 10-5 (ROOM AIR)
[2024-09-11 05:29] LABS: MAGNESIUM 1.2 mg/dL (1.80-2.40)
[2024-09-11 05:39] LABS: POTASSIUM 2.8 mmol/L (3.5-5.1)
[2024-09-11] MEDS: INSULIN humuLIN R 100 UNIT/ML 3ML SQ SCH (06:00)
[2024-09-11] MEDS ORDERED: PoTASSium chloRIDE 20MEQ ER 20 MEQ ERTAB PO PRN (06:00)
[2024-09-11] MEDS: PoTASSium chloRIDE 10MEQ/100ML 100 ML IV SCH (06:32)
[2024-09-11] MEDS: MAGNESIUM 2GM PREMIX 50ML 50 ML IV PRN (06:32)
[2024-09-11] MEDS: PoTASSium chl 10% ELIXIR 20MEQ 20 MEQ/15 ML UDCUP PO PRN (06:33)
[2024-09-11] MEDS: IpraTROPium 0.5 MG/2.5 ML INH IH SCH (06:50)
[2024-09-11] MEDS: ASCORBIC ACID 500 MG TAB PO SCH (08:16)
[2024-09-11] MEDS: FERROUS SULFATE 325 MG TABLET.DR PO SCH (08:16)
[2024-09-11] MEDS: ENOXAPARIN SODIUM 30 MG/0.3 ML SQ SCH (08:16)
[2024-09-11] MEDS: acetaMINOPHEN 325 MG TAB PO PRN (08:19)
--- NOTE | 2024-09-11 10:18 | NUR ---
lower bipap pressures as per wilian learning development specialist, Pt tachypneic and diaphoretic at this time. pt tolerating pressures well spo2 100 rr25 hr 101 Addendum: 09/11/24 at 1020 by GONZALES MASSEY RT Amended: Links added.
--- NOTE | 2024-09-11 10:58 | HP ---
[facility] HISTORY & PHYSICAL Date Patient Seen: Sep 11, 2024 Time of Visit: 10:58 Supervising Physician: Robert Guy MD Primary Care Physician: Geremias Everett Outpatient Specialists: [ ] Inpatient Consults: DR RIVERA PROBLEM LIST: Acute hypoxic respiratory failure, POA Severe sepsis, POA Gram-positive bacteremia, POA 2/2 Acute on chronic systolic and diastolic heart failure, POA EF 40% in 2021 now 25-30% Suspected healthcare associated pneumonia, POA Rhabdomyolysis Elevated troponin Essential hypertension Hypokalemia Hyperlipidemia Lupus Dyslipidemia BLAS on CKD POA Bi V ICD ( [facility]) implanted in 2021 Atrial fibrillation on chronic anticoagulation Severe CAD with remote stent and CABG 7 years ago Remote Right occipital CVA in 2018 HPI: This is a 63-year-old with a history of lupus, extensive cardiac disease that includes previous myocardial infarction, severe CAD with remote stent placement and CABG 7 years ago , hyperlipidemia, hypertension, remote right occipital CVA in 2018 and diastolic heart failure with EF of 40% in 2021, and AICD who came into the emergency department for evaluation of shortness breath. On arrival to the emergency department patient had a fever of 102.6 heart rate of 133 respiratory rate of 37 saturating 99% with 2 L and blood pressure was 115/74. On laboratory WBCs were 14.2 neutrophils 86.9 BNP 2250. Patient was assessed in room 211 awake alert and oriented x3. On BiPAP machine 10/ with 60% FiO2 saturating 100%. We can start weaning down FiO2 and wean from BiPAP as tolerated. Patient is hemodynamically stable with a blood pressure 105/57 heart rate 101 she had a fever this morning of 101.1, chemistry potassium was 2.8 corrected per protocol pending repeat potassium level sodium was 128 chloride 92 total calcium was 7.5 magnesium 1.2 corrected per protocol. Kidneys are doing better with a creatinine 1.0 and GFR 63. Lactic acid 2.5. CK trended up at 192 and sensitive troponin trended up to 152 today. WBCs trending down 11.1 H&H 11.8/34.4 with a platelet count that is normal. Patient is n egative for COVID and influenza strep. 2D echo pending for today cardiology consulted for NSTEMI. PAST MEDICAL HX: Diastolic heart failure with the EF of 40-45% AICD in place Lupus Prior myocardial infarction CAD with remote stent placement CABG seven years ago Rales Cepacol CVA in 2019 Hypertension, hyperlipidemia PAST SURGICAL HX: Cholecystectomy CABG seven years ago Right knee surgery SOCIAL HISTORY: No tobacco, ETOH, or illicit drug use Coded Allergies: ciprofloxacin (Unverified Allergy, Severe, SHUTS DOWN ORGANS, 03/11/13) ciprofloxacin HCl (Unverified Allergy, Severe, SHUTS DOWN ORGANS, 03/11/13) vancomycin (Unverified Allergy, Unknown, 08/28/21) REVIEW OF SYSTEMS: General: Yes for malaise fever generalized body Neurological: No fainting episodes or seizures. HEENT: No nasal congestion or nasal secretion. Respiratory yes for shortness of breaths no wheezes Cardiac: Yes for chest pain and palpitations Gastrointestinal: No vomiting or diarrhea. Genitourinary: No dysuria hematuria. Skin: No rashes or lesions. Hematological: No bruises or bleeding. Musculoskeletal: No joint pains or arthralgias. Psychiatric: No depression or panic attacks. PHYSICAL EXAM: GENERAL: alert, weak, awake oriented x 3 HEENT: EOMI, Sclera non icteric, moist mucosa NECK: Supple, no JVD, trachea midline LUNGS: Clear breath sounds bilaterally. No wheezes HEART: Regular rate and rhythm. Normal S1 and S2, without murmurs ABD: Abdomen soft, nontender. Bowel sounds present EXT: No clubbing cyanosis or edema NEURO: Alert and oriented to person, follows commands Vital Signs (last 8hr) Date Time Temp Pulse Resp B/P (MAP) Pulse Ox O2 Delivery O2 Flow Rate FiO2 09/11/24 10:15 101 25 40 09/11/24 08:48 110 23 105/57 100 BIPAP 40 09/11/24 08:33 110 22 116/48 100 BIPAP 40 09/11/24 08:30 96 Bi-PAP+ 40 09/11/24 08:30 111 12 100 09/11/24 08:19 101.1 09/11/24 08:18 110 26 109/56 100 BIPAP 40 09/11/24 08:03 104 23 106/59 09/11/24 08:00 101.1 105 26 100 BIPAP 40 09/11/24 07:48 104 24 136/63 100 BIPAP 40 09/11/24 07:34 108 23 110/60 100 BIPAP 40 09/11/24 07:30 108 27 100 09/11/24 07:18 108 29 103/62 100 BIPAP 40 09/11/24 07:03 109 23 98/64 92 BIPAP 40 09/11/24 07:00 108 27 98 BIPAP 40 09/11/24 06:56 106 26 40 09/11/24 06:50 106 26 09/11/24 06:45 112 27 109/68 98 BIPAP 50 09/11/24 06:30 109 22 107/60 100 BIPAP 50 09/11/24 06:15 105 21 110/61 100 BIPAP 50 09/11/24 06:00 112 17 109/62 98 BIPAP 50 09/11/24 05:45 104 20 109/56 100 BIPAP 50 09/11/24 05:30 107 20 108/57 100 BIPAP 50 09/11/24 05:15 104 22 114/59 94 BIPAP 50 09/11/24 05:00 102 22 114/54 99 BIPAP 50 09/11/24 04:45 107 22 104/58 94 BIPAP 50 09/11/24 04:30 104 21 100/57 96 BIPAP 50 09/11/24 04:15 102 23 98/54 95 BIPAP 50 09/11/24 04:00 98 Bi-PAP+ 50 09/11/24 04:00 99.5 99 21 105/52 98 BIPAP 50 09/11/24 03:45 103 21 99/54 98 BIPAP 50 LABS: Hematology Labs: Test 09/11/24 04:10 09/10/24 19:55 Range/Units White Blood Count 11.1 H 4.8-10.8 K/uL Red Blood Count 3.56 L 4.00-5.50 MIL/uL Hemoglobin 11.8 L 12.0-16.0 g/dL Hematocrit 34.4 L 36-48 % Mean Corpuscular Volume 96.6 79-99 fL Mean Corpuscular Hemoglobin 33.1 H 27.0-33.0 pg Mean Corpuscular Hemoglobin Concent 34.3 32.0-36.0 g/dL Red Cell Distribution Width 13.1 11.0-15.5 % Platelet Count 158 130-400 K/uL Mean Platelet Volume 11.1 H 7.5-10.5 fL Nucleated Red Blood Cells 0.0 0.0-0.19 % Immature Granulocyte % (Auto) 0.9 0-1 % Neutrophils (%) (Auto) 86.9 H 40.0-77.0 % Lymphocytes (%) (Auto) 5.4 L 21.0-51.0 % Monocytes (%) (Auto) 4.6 3.0-13.0 % Eosinophils (%) (Auto) 1.8 0.0-8.0 % Basophils (%) (Auto) 0.4 0.0-5.0 % Neutrophils # (Auto) 12.3 H 1.8-7.7 K/uL Lymphocytes # (Auto) 0.8 L 1.0-4.8 K/uL Monocytes # (Auto) 0.7 0.1-1.0 K/uL Eosinophils # (Auto) 0.25 0.00-0.70 K/uL Basophils # (Auto) 0.06 0.00-0.20 K/uL Absolute Immature Granulocyte (auto 0.13 0-1 K/uL White Cell Morphology Comment See comments Chemistry Labs: Test 09/11/24 05:12 09/11/24 04:10 09/11/24 01:10 09/10/24 19:55 Range/Units Whole Blood Glucose 79 70-110 MG/DL Sodium Level 125 L 136-145 mmol/L Potassium Level 2.8 *L 3.5-5.1 mmol/L Chloride Level 92 L 101-111 mmol/L Carbon Dioxide Level 22 21-32 mmol/L Blood Urea Nitrogen 11 7-18 mg/dL Creatinine 1.0 0.5-1.0 mg/dL Glomerular Filtration Rate Calc 63 >90 mL/min Random Glucose 90 # 70-105 mg/dL Lactic Acid Level 2.5 0.8-2.5 mmol/L Total Calcium 7.5 L 8.5-10.1 mg/dL Magnesium Level 1.20 L 1.80-2.40 mg/dL Total Creatine Kinase 892 #*H 21-232 U/L Troponin I High Sensitivity 252 *H 4-50 ng/L B-Type Natriuretic Peptide 2250 H 0-100 pg/mL DIAGNOSTICS / RADIOLOGY RESULTS: PATIENT: RICK PALUMBO MR#: [id number] : 1960 SEX: F AGE: 63 LOCATION: [facility] ORDER 53 STATUS: ADM IN REPORT#: [id number] SERVICE 52 REASON: Dyspnea/SOB ORDERING PHYSICIAN: LILIANA HUTCHINS MD PROCEDURE: CXR1VW - CHEST 1VW CHEST 1VW HISTORY: Dyspnea COMPARISON: 08/23/2021 FINDINGS: A frontal projection of the chest was obtained. There are bilateral pulmonary infiltrates suggestive of pulmonary vascular congestion with possible superimposed pneumonitis. Poststernotomy changes are seen. The heart is enlarged. Degenerative changes of the thoracolumbar spine are present. Pacemaker is seen entering from the left. No evidence of aortic calcification is seen. IMPRESSION: 1. Bilateral pulmonary infiltrates are seen suggestive of pulmonary vascular congestion with possible superimposed pneumonitis. DICTATED BY: JANIS ZAMARRIPA MD DATE: 09/10/242329 ELECTRONICALLY SIGNED BY: JANIS ZAMARRIPA MD DATE: 09/10/242332 IMAGING REPORT Signed PATIENT: RICK PALUMBO MR#: [id number] : 1960 SEX: F AGE: 63 LOCATION: 2CV ORDER 16 STATUS: ADM IN REPORT#: [id number] SERVICE 111 REASON: acute heart failure ORDERING PHYSICIAN: EDWARD HINOJOSA PROCEDURE: ECHO CMP - ECHO 2-D COMPLETE APPROVED REPORT EXAM: Two-dimensional and M-mode echocardiogram with Doppler and color Doppler. Study Details: Hx:Hypertension, Hperlipidemia, Lupus, AICD, Severe CAD with remote stent and CABG 7 years ago, Remote occipital CVA in 2019 INDICATION ICD: Acute heart failure 2D Dimensions RVDd 4.0 cm LVEF(%) 29.4 (>50%) LVED Vol(simp.) 151.0 mL IVSd 0.4 (0.7-1.1cm) FS(%) 14 % LVES Vol(simp.) 111.0 mL LVDd 5.7 (3.8-5.6cm) LA (2D) 4.3 (1.6-4.0cm) LVEF(%, simp.) 27 % PWd 0.8 (0.7-1.1cm) Ao Root(2D) 3.1 (2.0-3.7cm) LA ESV INDEX (4CH) 43.60 mL/m2 IVSs 0.6 cm LVOT diam 2.1 (1.8-2.4cm) LA ESV INDEX (2CH) 48.30 mL/m2 LVDs 4.9 (2.5-4.0cm) LA ESV INDEX (BP) 51.30 mL/m2 PWs 0.8 cm Deformation Strain Apical 4 13.0 % Apical 2 10.0 % Apical 3 13.0 % Global Strain 12.0 % M-Mode Dimensions EPSS 2.1 cm LA (MM) 5.0 (1.6-4.0cm) Ao Root(MM) 3.1 (2.0-3.7cm) Aortic Valve AoV VTI 0.2 m Ao Mean GR 3.0 mmHg LVOT VTI 0.09 m JATINDER (VMAX) 1.5 cm2 JATINDER (VTI) 1.5 cm2 Mitral Valve MV E Vmax 122.2 cm/s DECEL Time 155 ms MR VTI 124 cm2 MV A Vmax 92.6 cm/s P 1/2 T 68 ms E/A ratio 1.3 MVA (PHT) 3.2 cm2 TDI E/E' Medial 27.8 E/E' Lateral 27.2 Medial E' Peak V 4.40 cm/s Lateral E' Peak V 4.50 cm/s Pulmonary Valve PV Vmax 0.6 m/s PV Peak GR 1.3 mmHg Tricuspid Valve TR Vmax 2.6 m/s RAP (EST) 8 mmHg RVSP 34.3 mmHg TR Peak GR 26.3 mmHg Left Ventricle The left ventricle is moderately dilated. Reduced GLS -12.0%. Global thinning of the left ventricular [place]. LVEF is 25-30%. 3-D volume EF 29%. Stage II, diastolic dysfunction. Right Ventricle The right ventricle is normal size. Right ventricular systolic function is moderately reduced. Device lead is present in the right ventricle. Atria The left atrium is severely dilated. LASVI 51mL/m. The right atrium is borderline dilated. Aortic Valve Aortic valve is trileaflet and opens well. No aortic regurgitation is present. There is no aortic valvular stenosis. Mitral Valve Mitral valve leaflets open well. There is mild to moderate mitral valve regurgitation noted with an eccentric jet toward the posterior left atrial wall. There is no mitral valve stenosis. Tricuspid Valve The tricuspid valve leaflets appear normal. There is modrate tricuspid valve regurgitation noted. Pulmonic Valve The pulmonary valve is normal in structure and function. There is no pulmonic valvular regurgitation. Great Vessels The aortic root is normal in size. IVC is normal in size and collapses <50% with inspiration. Pericardium No pericardial effusion. Other Information Quality : Good Conclusion The left ventricle is moderately dilated. Global thinning of the left ventricular [place]. LVEF is 25-30%. 3-D volume EF 29%. Stage II, diastolic dysfunction. Reduced GLS -12.0%. There is mild to moderate mitral valve regurgitation noted with an eccentric jet toward the posterior left atrial wall. There is modrate tricuspid valve regurgitation noted. Device lead is present in the right ventricle. The right ventricle is normal size. DICTATED BY: ARELI RIVERA MD DATE: 09/11/24 1208 ELECTRONICALLY SIGNED BY: ARELI RIVERA MD DATE: 09/11/24 1432 PLAN Airway assessment and respiratory monitoring conversation Wean off BiPAP as tolerated Monitor electrolytes and replace accordingly Monitor kidney function Supplemental O2 and maintain O2 sats above 92% chest x-ray in the morning Strict intake and output Fluid restriction of 1.5 L Atrovent treatments p.r.n. next item Monitor for fevers and treat aggressively Follow blood cultures NEURO: Minimize central acting medications as possible. Fall Precautions. Well lighted room through the day and minimize interruptions through the night to prevent acute delirium. PULMONARY: Supplemental 02 as needed Titrate Fio2 to keep Spo2 > or = 90% DuoNebs and CPT as needed IS hourly while awake for pulmonary hygiene Out of bed to chair as tolerated BiPAP as needed 10/ 50% CARDIOVASCULAR: Follow hemodynamics. Titrate vasopressor to keep MAP >65 or systolic blood pressure >95mmHg NSTEMI likely type 2 from demand ischemia Trend troponins BNP 2D echo Statin therapy Glucose goal of 80-180 mg/dL Telemetry monitoring Drips: None LINES: PIV Pending midline GI & NUTRITION: Continue nutritional support Aspirations precautions Prokinetic agents and laxatives as needed Heart healthy KIDNEYS & ELECTROLYTES: Strict monitoring of intake and output Daily weights Avoid nephrotoxic agents Monitor electrolytes and replace as needed Goal urine output of 30mL/hr or 0.5mL/kg/hr Urine output: [ ] Fluid Balance: [ ] ENDOCRINE: Maintain blood glucose between 100-180 at all times. Insulin sliding scale for blood glucose management INFECTIOUS DISEASE: Trend temperature. Max-culture if febrile. Micro: [ ] Cultures growing Gram-positive cocci2/2 Antibiotics: Silvana is allergic to vancomycin Zosyn HEMATOLOGY & COAGULATION: Monitor H&H. Keep Hgb > 7 Transfuse 1 unit of PRBC for Hgb < 7 Transfuse 1 pack of platelets of platelets < 20, 000 Watch for any signs and symptoms of bleeding SKIN: Pressure ulcer prevention per facility protocol Rehab: PT/OT Prophylaxis: GI: Protonix DVT: Patient is on Eliquis 2.5 mg p.o. b.i.d. Code Status: Full Resuscitation Disposition: May downgrade to PCCU Other: Total patient care time exceeds 35 minutes excluding all procedures. Case was discussed and seen with my supervising physician. The above plan was formulated and agreed upon. EDWARD HINOJOSA [facility] Sep 11, 2024 10:58
[2024-09-11 12:16] LABS: MAGNESIUM 2.9 mg/dL (1.80-2.40); POTASSIUM 4.5 mmol/L (3.5-5.1)
--- NOTE | 2024-09-11 12:28 | NUR ---
dr. bartlett in hospital made aware of new consult. no new orders at this time
[2024-09-11] MEDS: PoTASSium chloRIDE 10MEQ SR 10 MEQ/TAB TAB.SR.24H PO SCH (12:30)
[2024-09-11] MEDS: furoSEMIDE 20MG VIAL IV SCH ×2 (12:30→14:30)
[2024-09-11] MEDS: miDODRine HCL 5 MG TABLET PO SCH (12:45)
[2024-09-11 13:16] LABS: APPEARANCE,URINE CLEAR (CLEAR); BILIRUBIN,URINE NEGATIVE (NEGATIVE); GLUCOSE, URINE (UA) NEGATIVE (NEGATIVE); KETONES,URINE NEGATIVE (NEGATIVE); LEUKOCYTE ESTERASE ,URINE NEGATIVE Leu/uL (NEGATIVE); NITRATE,URINE NEGATIVE (NEGATIVE); PH,URINE 6.5 (5.0-8.0); PROTEIN,URINE NEGATIVE (NEGATIVE); UROBILINOGEN,URINE 0.2 mg/dL (0.2-1.0)
[2024-09-11 13:18] LABS: ADD UA MICROSCOPIC YES; COLOR,URINE STRAW (YELLOW)
[2024-09-11 13:20] LABS: BACTERIA,URINE RARE /HPF (None Seen); WBC,URINE 0-1 /HPF (0-1)
[2024-09-11] MEDS ORDERED: furoSEMIDE 20MG VIAL IV SCH (14:30)
--- NOTE | 2024-09-11 14:32 | HMCSR ---
APPROVED REPORT EXAM: Two-dimensional and M-mode echocardiogram with Doppler and color Doppler. Study Details: Hx:Hypertension, Hperlipidemia, Lupus, AICD, Severe CAD with remote stent and CABG 7 y ears ago, Remote occipital CVA in 2019 INDICATION ICD: Acute heart failure 2D Dimensions RVDd4.0 cmLVEF(%)29.4 (>50%)LVED Vol(simp.)151.0 mL IVSd0.4 (0.7-1.1cm)FS(%)14 %LVES Vol(simp.)111.0 mL LVDd5.7 (3.8-5.6cm)LA (2D)4.3 (1.6-4.0cm)LVEF(%, simp.)27 % PWd0.8 (0.7-1.1cm)Ao Root(2D)3.1 (2.0-3.7cm)LA ESV INDEX (4CH)43.60 mL/m2 IVSs0.6 cmLVOT diam2.1 (1.8-2.4cm)LA ESV INDEX (2CH)48.30 mL/m2 LVDs4.9 (2.5-4.0cm)LA ESV INDEX (BP)51.30 mL/m2 PWs0.8 cm Deformation Strain Apical 413.0 % Apical 210.0 % Apical 313.0 % Global Ansprn47.0 % M-Mode Dimensions EPSS2.1 cm LA (MM)5.0 (1.6-4.0cm) Ao Root(MM)3.1 (2.0-3.7cm) Aortic Valve AoV VTI0.2 mAo Mean GR3.0 mmHgLVOT VTI0.09 m JATINDER (VMAX)1.5 cm2AVA (VTI) 1.5 cm2 Mitral Valve MV E Dwvt054.2 cm/sDECEL Lbip233 msMR KJW151 cm2 MV A Vmax92.6 cm/sP 1/2 T68 ms E/A ratio1.3MVA (PHT)3.2 cm2 TDI E/E' Dechnp61.8E/E' Nkeswbj70.2 Medial E' Peak V4.40 cm/sLateral E' Peak V4.50 cm/s Pulmonary Valve PV Vmax0.6 m/s PV Peak GR1.3 mmHg Tricuspid Valve TR Vmax2.6 m/sRAP (EST) 8 syVyCQBP14.3 mmHg TR Peak GR26.3 mmHg Left Ventricle The left ventricle is moderately dilated. Reduced GLS -12.0%. Global thinning of the left ventricular [place]. LVEF is 25-30%. 3-D volume EF 29%. Stage II, diastolic dysfunction. Right Ventricle The right ventricle is normal size. Right ventricular systolic function is moderately reduced. Device lead is present in the right ventricle. Atria The left atrium is severely dilated. LASVI 51mL/m. The right atrium is borderline dilated. Aortic Valve Aortic valve is trileaflet and opens well. No aortic regurgitation is present. There is no aortic rodrick vular stenosis. Mitral Valve Mitral valve leaflets open well. There is mild to moderate mitral valve regurgitation noted with an e ccentric jet toward the posterior left atrial wall. There is no mitral valve stenosis. Tricuspid Valve The tricuspid valve leaflets appear normal. There is modrate tricuspid valve regurgitation noted. Pulmonic Valve The pulmonary valve is normal in structure and function. There is no pulmonic valvular regurgitation. Great Vessels The aortic root is normal in size. IVC is normal in size and collapses <50% with inspiration. Pericardium No pericardial effusion. Other Information Quality : Good Conclusion The left ventricle is moderately dilated. Global thinning of the left ventricular [place]. LVEF is 25-30%. 3-D volume EF 29%. Stage II, diastolic dysfunction. Reduced GLS -12.0%. There is mild to moderate mitral valve regurgitation noted with an eccentric jet toward the posterior left atrial wall. There is modrate tricuspid valve regurgitation noted. Device lead is present in the right ventricle. The right ventricle is normal size.
--- NOTE | 2024-09-11 14:41 | CONS ---
[facility] Cardiology Consultation Note Cardiology consult dictated for Octavio Keller MD Date of service 09/11/[address] field services Dr[address] Octavio Keller Chief complaint: Shortness of breath, fever Reason for consult: Congestive heart failure History of present illness: This is a 63-year-old female patient of Dr. Keller who presented to the emergency department for evaluation of shortness of breath. Patient has a history of atrial fibrillation on chronic anticoagulation, ischemic cardiomyopathy with ejection fraction of 40-45% and Bi V ICD [facility] device implanted in 2021. On arrival she was noted to have a fever of 102.6 and a heart rate of 133 beats per minute. BNP was 2250 troponin high sensitivity of 152 and a CK of 192. Last troponin 182 with a CK of a 1051. Twelve lead EKG demonstrated paced rhythm with no acute findings. She has been diagnosed with severe sepsis with suspected healthcare associated pneumonia. She was diuresed overnight and currently is breathing comfortably. Past medical history: Positive for remote myocardial infarction, CAD, rheumatoid arthritis, chronic anticoagulation for atrial fibrillation with Eliquis and lupus anticoagulant, dyslipidemia, hypertension, right occipital CVA November 2018, ischemic cardiomyopathy with ejection fraction 25-30% improving to 40-45% after echo optimization, chronic kidney disease stage IIIA. Past surgical history: Positive for stent to the LAD March 2013 and subsequent aortocoronary bypass graft surgery with SUAREZ graft to the LAD and SVG to OM June 2018 with patent SUAREZ graft to the LAD and occluded SVG graft to the obtuse marginal artery with regression of disease in the circumflex artery to 30% August 22, 2021, cholecystectomy, tubal ligation, right knee surgery, implantation of [facility] biventricular defibrillator October 22, 2022 Allergies: Patient is allergic to ciprofloxacin, vancomycin. Social history: Lives with family denies tobacco alcohol or illicit drug use Family history: Noncontributory Review of systems: 14 point review of systems performed with pertinent positives and negatives discussed in HPI Physical exam: Blood pressure is 94/61 heart rate of 91 beats per minute and irregular neck is supple no jugular vein distention, bilateral breath sounds clear to auscultation O2 saturations 100% on nasal cannula 2 L. Patient is alert awake and oriented. All others within normal limits. Assessment: Acute on chronic systolic congestive heart failure Pneumonia Rhabdomyolysis Elevated troponin Hypotension Hypokalemia Atrial fibrillation On chronic anticoagulation for stroke prevention and history of lupus anticoagulant History of coronary artery disease with coronary artery bypass grafting Bi V ICD [facility] device implanted 2021 Dyslipidemia Right occipital CVA November 2018 CKD stage IIIA Plan: At this point we have a 63-year-old female presented for evaluation of fever and shortness of breath. She has been diagnosed with sepsis and pneumonia. She is receiving IV antibiotics and furosemide IV for diuresis. Cardiology consult was requested due to abnormal troponin. Troponin high sensitivity 140, 252, 182 and no acute findings on 12 lead EKG. Believe troponin elevation is related to sepsis with supply demand mismatch. Regarding fluid overload we will place patient on fluid restriction, daily weights and adjust medication. 2D echocard iogram has been ordered by primary team. Further recommendations once results are available for review. JAE DIAS Sep 11, 2024 14:41
--- NOTE | 2024-09-11 15:51 | NUR ---
report aND CARE GIVEN TO MELISSA WREN. PT AAOX3. NO DISTRESS NOTED. VITALS STABLE.
[2024-09-11] MEDS: LINEZOLID 600 MG/ISO-OSM 300 ML IV SCH (20:57)
[2024-09-11] MEDS: APIXaban 2.5 MG TABLET PO SCH (20:58)
[2024-09-11] MEDS: PANTOPrazole 40 MG/VIAL IVP SCH (21:00)
--- NOTE | 2024-09-11 21:50 | NUR ---
PATIENT C/O SOB ON 2 L N/C RESPIRATORY THERAPIST CALLED AND PUTS PT BACK ON BIPAP SCHEDULED, WILL CONT TO MONITOR
--- NOTE | 2024-09-11 23:30 | NUR ---
PATIENT CONTINUES WITH BIPAP FiO2 40%, RATE 30 WILL CONT TO MONITOR
[2024-09-12] VITALS (137 sets, daily range): BP systolic 72–144; BP diastolic 28–107; PULSE 82–242; RESP 10–42; TEMP 98.2–102; O2SAT 90–100
--- NOTE | 2024-09-12 01:40 | NUR ---
SCHEDULED DOSE OF LASIX 20MG IV GIVEN PATIENT STILL CONT WITH BIPAP AT THIS TIME, WILL CONT TO MONITOR
[2024-09-12] MEDS: HYDROcodone/APAP 5/325 1 TAB TABLET PO PRN (02:41)
[2024-09-12] MEDS: morPHINE 2 MG SYG IV ONE (03:00)
--- NOTE | 2024-09-12 03:00 | NUR ---
C/O HEADACHE AND TOO MUCH PRESSURE FROM THE BIPAP CALLED ELAINE SALMON DIRECTOR OF INTELLIGENCE, LOCAL FLATBED DRIVER FOR [employer] AND EXPLAINED THE PT SITUATION, ORDER RECEIVED FOR 2 MG OF MORPHINE IV, AND RESPIRATORY THERAPIST WAS CALLED TO READJUST BIPAP SETTING . WILL CONT TO MONITOR
--- NOTE | 2024-09-12 04:11 | NUR ---
PATIENT SHOWING MORE SIGN OF DISTRESS WITH BIPAP CALLED [facility] NONOG PUBLICATIONS MANAGER, AND INFORMED OF WHAT HAVE BEEN DONE SO FAR, BUT PATIENT NOT IMPROVING, PT STILL ON THE BIPAP 14/6 @ 40% RATE 14, VERY TACHYPNEIC, RR 37-40, INFORMED [facility] PUBLICATIONS MANAGER, THAT PATIENT MAY NEED PRECEDEX TO RELAX IN ORDER TO TOLERATE THE BIPAP, AND ALSO IF WE CAN GET AN ABG. PER [facility] PUBLICATIONS MANAGER RECOMMENDATIONS, TRANSFER TO ICU, GIVE MORPHINE 2 MG IV, GIVE ATIVAN 1 MG IV THEN STARTS THE PRECEDEX, PER THE ABG " NO NEED FOR LONG PATIENT MENTATION IS NOT AFFECTED. OF THIS TIME PATIENT AAOX3. WILL CONT TO MONITOR
[2024-09-12] MEDS ORDERED: dexmedeTOMIDine 400MCG/NS100ML IV SCH (04:30)
--- NOTE | 2024-09-12 04:30 | NUR ---
REPORT GIVEN TO NURSE RENEA BAILEY RN AT BEDSIDE ASSESSING PATIENT WILL CONT TO MONITOR
[2024-09-12 04:38] LABS: BASOPHILS # (AUTO) 0.04 K/uL (0.00-0.20); BASOPHILS % (AUTO) 0.2 % (0.0-5.0); EOSINOPHILS # (AUTO) 0.27 K/uL (0.00-0.70); EOSINOPHILS % (AUTO) 1.3 % (0.0-8.0); HEMATOCRIT 38.5 % (36-48); IMMATURE GRANULOCYTE ABSOLUTE 0.15 K/uL (0-1); LYMPHOCYTES # (AUTO) 0.3 K/uL (1.0-4.8); LYMPHOCYTES % (AUTO) 1.6 % (21.0-51.0); MEAN CORPUSCULAR HEMOGLOBIN 31.6 pg (27.0-33.0); MEAN CORPUSCULAR HGB CONC 31.9 g/dL (32.0-36.0); MONOCYTES # (AUTO) 0.8 K/uL (0.1-1.0); MONOCYTES % (AUTO) 3.8 % (3.0-13.0); NEUTROPHILS % (AUTO) 92.4 % (40.0-77.0); NUCLEATED RED BLOOD CELLS 0.1 % (0.0-0.19); PLATELET COUNT (AUTO) 193 K/uL (130-400); RED BLOOD CELL COUNT(AUTO) 3.89 MIL/uL (4.00-5.50); RED CELL DISTRIBUTION WIDTH 13.8 % (11.0-15.5); WHITE BLOOD COUNT (AUTO) 20.6 K/uL (4.8-10.8)
[2024-09-12] MEDS: LORazepam 2 MG/ML 1 ML VIAL IVP ONE (04:41)
[2024-09-12] MEDS: morPHINE 2 MG SYG IVP ONE (04:42)
[2024-09-12 04:49] LABS: % IRON SATURATION 20.1 % (22-44)
--- NOTE | 2024-09-12 04:53 | NUR ---
ORDER FOR EXTRA DOSE OF 40 MG OF LASIX IV RECEIVED FROM [facility] LASIX GIVEN IMMEDIATELY, WILL CONT TO MONITOR
--- NOTE | 2024-09-12 04:54 | NUR ---
PATIENT IS TRANSFERRED TO ICU ROOM 214 FAMILY WERE CALLED TO MAKE AWARE OF SITUATION WILL CONT TO MONITOR
--- NOTE | 2024-09-12 04:55 | NUR ---
Family patients son made aware (Dougie Arringtonspe) of change in condition, notified of room transfer from room 205 to room 214. Son understood and all questions at this time.
[2024-09-12 04:59] LABS: CREATININE 1.6 mg/dL (0.5-1.0); MAGNESIUM 2.6 mg/dL (1.80-2.40); PHOSPHORUS 3.1 mg/dL (2.5-4.9)
[2024-09-12] MEDS: furoSEMIDE 40MG VIAL IV ONE ×2 (05:09→17:28)
[2024-09-12] MEDS: AMIOdarone 200 MG TABLET PO SCH (08:37)
--- NOTE | 2024-09-12 10:20 | PN ---
Septic shock Rising leukocytosis Elevated troponin, non-STEMI versus inflammatory response Mildly elevated BNP, improving and now 169 Atrial fibrillation Anticoagulated for atrial fibrillation EF previously cole from 20/5-45% and is now reduced, 30% by current echo Rheumatoid arthritis Lupus anticoagulant Hypertension History of right occipital CVA November 2018 Chronic kidney disease stage IIIA Hyponatremia 127 History stent LAD March 2013 and coronary bypass with SUAREZ to LAD, vein to OM and subsequent demonstration of occlusion of OM graft 2020 Patient is lethargic and unable to offer any history. Elderly frail patient in respiratory distress with accessory muscle of respiration use and paradoxical respiration. Coarse rales in the lower 2/3 bilaterally, diminished S1 and S2, no murmur. No edema. Minimal bruising right leg. Bowel sounds present. Conclusion (echo) The left ventricle is moderately dilated. Global thinning of the left ventricular [place]. LVEF is 25-30%. 3-D volume EF 29%. Stage II, diastolic dysfunction. Reduced GLS -12.0%. There is mild to moderate mitral valve regurgitation noted with an eccentric jet toward the posterior left atrial wall. There is modrate tricuspid valve regurgitation noted. Device lead is present in the right ventricle. The right ventricle is normal size. Impression: Patient was treated for septic shock and hypotension has resolved such that she does not require pressors at present. Elevated troponin has improved slightly and is probably an inflammatory marker rather than evidence of acute non-STEMI. Heart failure has worsened and echo demonstrates decreased EF this may also improve as the patient improves metabolically. Recommendations: For now, supportive care and antibiotic therapy with careful observation of cardiac status. May require diuresis as she begins to stabilize. Vitals/Labs Vital Signs Date Time Temp Pulse Resp B/P (MAP) Pulse Ox O2 Delivery O2 Flow Rate FiO2 09/12/24 09:20 92 18 100 09/12/24 09:18 112/72 Nasal Cannula 4.0 09/12/24 08:00 36 09/12/24 07:33 98.8 Laboratory Tests 09/11/24 11:33 09/12/24 04:14 Medications Current Medications Albuterol 1 UDVIAL ONCE ONCE IH Last administered on 09/10/24at 20:37; Start 09/10/24 at 20:30; Stop 09/10/24 at 20:31; Status DC Acetaminophen 1,000 mg ONCE ONCE PO Last administered on 09/10/24at 20:17; Start 09/10/24 at 20:30; Stop 09/10/24 at 20:31; Status DC Sodium Bicarbonate 50 meq ONCE ONCE IV Last administered on 09/10/24at 20:40; Start 09/10/24 at 20:30; Stop 09/10/24 at 20:31; Status DC Dextrose 50 ml ONCE ONCE IV Last administered on 09/10/24at 20:40; Start 09/10/24 at 20:30; Stop 09/10/24 at 20:31; Status DC Piperacillin Sod/ Tazobactam Sod 3.375 gm ONCE ONCE IV Last administered on 09/10/24at 20:42; Start 09/10/24 at 21:00; Stop 09/10/24 at 21:01; Status DC Linezolid 300 ml @ 150 mls/hr ONCE IV Last administered on 09/10/24at 20:42; Start 09/10/24 at 21:00; Stop 09/11/24 at 19:16; Status DC Dextrose/Sodium Chloride 1,000 ml @ 125 mls/hr ONCE ONCE IV Last administered on 09/10/24at 21:59; Start 09/10/24 at 21:30; Stop 09/11/24 at 05:29; Status DC Sodium Bicarbonate 50 meq ONCE ONCE IV Last administered on 09/10/24at 21:45; Start 09/10/24 at 22:00; Stop 09/10/24 at 22:01; Status DC Piperacillin Sod/ Tazobactam Sod 3.375 gm Q8H IV Last administered on 09/12/24at 08:36; Start 09/11/24 at 01:00; Stop 09/21/24 at 00:59 Ipratropium [place] 0.5 MG [id number] IH Last administered on 09/12/24at 05:22; Start 09/11/24 at 06:00; Stop 10/11/24 at 05:59 Methylprednisolone Sodium Succinate 40 mg Q8H IVP Last administered on 09/11/24at 08:20; Start 09/11/24 at 01:30; Stop 09/11/24 at 11:13; Status DC Ascorbic Acid 500 mg DAILY PO Last administered on 09/12/24at 08:37; Start 09/11/24 at 09:00; Stop 10/11/24 at 08:59 Ferrous Sulfate 325 mg DAILY PO Last administered on 09/12/24at 08:37; Start 09/11/24 at 09:00; Stop 10/11/24 at 08:59 Enoxaparin Sodium 30 mg DAILY SQ Last administered on 09/11/24at 08:16; Start 09/11/24 at 09:00; Stop 09/11/24 at 14:13; Status DC Acetaminophen 650 mg Q6H PRN PO Last administered on 09/11/24at 08:19; Start 09/11/24 at 01:30; Stop 10/11/24 at 01:29 Acetaminophen 650 mg Q6H PRN RC; Start 09/11/24 at 01:30; Stop 10/11/24 at 01:29 Acetaminophen/ Hydrocodone Bitart 1 tab Q6H PRN PO; Start 09/11/24 at 01:30; Stop 09/16/24 at 01:29 Ondansetron HCl 4 mg Q6H PRN IVP; Start 09/11/24 at 01:30; Stop 10/11/24 at 01:29 Labetalol HCl 10 mg Q2H PRN IV; Start 09/11/24 at 01:30; Stop 10/11/24 at 01:29 Insulin Human Regular INSULIN SLIDING SCAL... Q6H6 SQ; Start 09/11/24 at 06:00; Stop 10/11/24 at 05:59 Potassium Chloride 20 meq AD PRN PO Last administered on 09/11/24at 09:20; Start 09/11/24 at 06:00; Stop 10/11/24 at 05:59 Potassium Chloride 20 meq AD PRN PO; Start 09/11/24 at 06:00; Stop 10/11/24 at 05:59 Potassium Chloride 100 ml @ 100 mls/hr Q1HR IV Last administered on 09/11/24at 06:32; Start 09/11/24 at 06:00; Stop 09/11/24 at 08:00; Status DC Magnesium Sulfate 50 ml @ 0 mls/hr PROTOCOL PRN IV Last administered on 09/11/24at 08:17; Start 09/11/24 at 06:30; Stop 10/11/24 at 06:29 Methylprednisolone Sodium Succinate 40 mg Q12H IVP Last administered on 09/12/24at 08:36; Start 09/11/24 at 21:30; Stop 10/11/24 at 01:29 Furosemide 20 mg Q6H IV Last administered on 09/11/24at 12:30; Start 09/11/24 at 11:30; Stop 09/11/24 at 14:13; Status DC Potassium Chloride 10 meq Q6H PO Last administered on 09/11/24at 23:12; Start 09/11/24 at 11:30; Stop 10/11/24 at 11:29 Midodrine 5 mg TID PO Last administered on 09/12/24at 08:37; Start 09/11/24 at 13:00; Stop 10/11/24 at 12:59 Furosemide 20 mg BID IV; Start 09/11/24 at 14:30; Stop 10/11/24 at 11:29; Status UNV Furosemide 20 mg Q12H IV Last administered on 09/12/24at 01:40; Start 09/11/24 at 14:30; Stop 10/11/24 at 14:29 Amiodarone HCl 100 mg DAILY PO Last administered on 09/12/24at 08:37; Start 09/12/24 at 09:00; Stop 10/12/24 at 08:59 Apixaban 2.5 mg BID PO Last administered on 09/12/24at 08:37; Start 09/11/24 at 21:00; Stop 10/11/24 at 20:59 Linezolid 300 ml @ 150 mls/hr Q12H IV Last administered on 09/12/24at 08:36; Start 09/11/24 at 21:00; Stop 09/20/24 at 20:59 Pantoprazole Sodium 40 mg DAILY IVP Last administered on 09/12/24at 08:36; Start 09/11/24 at 21:00; Stop 10/11/24 at 20:59 Morphine Sulfate 2 mg ONCE ONCE IV Last administered on 09/12/24at 03:00; Start 09/12/24 at 03:00; Stop 09/12/24 at 03:01; Status DC Dexmedetomidine/ Sodium Chloride 400 mcg PROTOCOL IV; Start 09/12/24 at 04:30; Stop 10/12/24 at 04:29 Morphine Sulfate 2 mg ONCE ONCE IVP Last administered on 09/12/24at 04:42; Start 11/10/24 at 04:30; Stop 09/12/24 at 04:35; Status DC Lorazepam 1 mg ONCE ONCE IVP Last administered on 09/12/24at 04:41; Start 09/12/24 at 04:30; Stop 09/12/24 at 04:35; Status DC Furosemide 40 mg ONCE ONCE IV Last administered on 09/12/24at 05:09; Start 09/12/24 at 05:00; Stop 09/12/24 at 05:01; Status DC MIAH SERRANO MD Sep 12, 2024 10:20
[2024-09-12] MEDS ORDERED: MEROPENEM 2 GM in 0.9%NACL 100ML 100 ML IV SCH (11:00)
--- NOTE | 2024-09-12 11:11 | PN ---
[facility] PROGRESS NOTE Date Patient Seen: Sep 12, 2024 Time of Visit: 11:10 Supervising Physician: Robert Guy MD Primary Care Physician: Geremias Everett Outpatient Specialists: [ ] Inpatient Consults: DR RIVERA PROBLEM LIST: Acute hypoxic respiratory failure, POA on BipaP Severe sepsis, POA Gram-positive bacteremia, POA 2/2 Acute on chronic systolic and diastolic heart failure, POA EF 40% in 2021 now 25-30% Suspected healthcare associated pneumonia, POA Anion gap metabolic acidosis 2/2 BLAS Rhabdomyolysis POA, resolving Elevated troponin Essential hypertension Hypokalemia Hyperlipidemia Lupus Dyslipidemia BLAS on CKD POA Bi V ICD ( [facility]) implanted in 2021 Atrial fibrillation on chronic anticoagulation Severe CAD with remote stent and CABG 7 years ago Remote Right occipital CVA in 2019 INTERVAL HISTORY: Patient was transferred to the ICU overnight due to worsening tachypnea and respiratory status. She was placed on BiPAP and tolerating well this morning. Family is at bedside and asked if patient was to need intubation and resuscitation and patient voiced that she would be okay with getting intubated if needed. Wishes to remain full code. PH this morning 7.43, pCO2 of 27 PO2 of 135 with a bicarb of 17.5. WBCs 20.6 increased since yesterday MCHC 31.9 platelet count [id number]. On chemistry sodium was 127 chloride 92 carbon dioxide of 15 creatinine of 1.6 magnesium 2.6. Patient on bicarb tablets 650 t.i.d.. Holding off from bicarb drip due to EF of 25% and already on acute on chronic CHF. Patient currently on Zyvox and Zosyn, change Zosyn to meropenem. I notified patient's family of current status and in the possibility of worsening condition due to complicated sepsis with bacteremia on top of pneumoniae and heart failure with a debilitated heart. Family and patient verbalized understanding and agree with plan of care. For now we will avoid bicarb drip in order to prevent further fluid overload but we will give bicarb pushes as needed. Kidney function worsened today with decreased urine output. Yanez to be inserted in order to maintain a strict I&O. Patient is already on Lasix 20 mg q.12 hours. 1630: Called to the bedside due to patient with paced ventricular tachycardia in the 130s, ABG +with a pH of 7.43, pCO2 of 22 PO2 155 bicarb of 114.6 base excess -7.7. For amps of bicarb pushes ordered and administered. Patient remains hemodynamically stable but blood pressure is marginal. Due to tachycardia Added Luis-Synephrine p.r.n. to maintain map above 65. Per Dr. Guy advise patient may need pushes of bicarb q.4 hours PRN. Patient tachypneic, tachycardic. We will continue to try BiPAP with Precedex drip for now. and hold off on intubation unless absolutely necessary due to the possibility of deterioration. I have made family who is at the bedside aware of patient's worsening condition. Kept them informed about the plan of care and they verbalized agreement. Answered all their questions. REVIEW OF SYSTEMS: General: Yes for malaise fever generalized body Neurological: No fainting episodes or seizures. HEENT: No nasal congestion or nasal secretion. Respiratory yes for shortness of breaths no wheezes Cardiac: Yes for chest pain and palpitations Gastrointestinal: No vomiting or diarrhea. Genitourinary: No dysuria hematuria. Skin: No rashes or lesions. Hematological: No bruises or bleeding. Musculoskeletal: No joint pains or arthralgias. Psychiatric: No depression or panic attacks. PHYSICAL EXAM: GENERAL: alert, weak, awake oriented x 3 HEENT: EOMI, Sclera non icteric, moist mucosa NECK: Supple, no JVD, trachea midline LUNGS: Diminished, breath sounds bilaterally. Wheezes to right lower lobe. HEART: Regular rate and rhythm. Normal S1 and S2, without murmurs ABD: Abdomen soft, nontender. Bowel sounds present EXT: No clubbing cyanosis or edema NEURO: Alert and oriented to person, follows commands Vital Signs (last 8hr) Date Time Temp Pulse Resp B/P (MAP) Pulse Ox O2 Delivery O2 Flow Rate FiO2 09/12/24 09:20 92 18 100 09/12/24 09:18 93 17 112/72 100 Nasal Cannula 4.0 09/12/24 09:05 91 12 100 09/12/24 09:03 98 18 100/61 100 Nasal Cannula 4.0 09/12/24 08:50 91 11 100 09/12/24 08:48 91 17 99/55 100 Nasal Cannula 4.0 09/12/24 08:35 93 24 100 11/10/24 08:33 90 26 112/69 100 Nasal Cannula 4.0 09/12/24 08:20 89 23 100 09/12/24 08:18 89 25 108/59 100 Nasal Cannula 4.0 09/12/24 08:05 89 24 100 09/12/24 08:03 89 22 110/67 100 Nasal Cannula 4.0 09/12/24 08:00 100 Nasal Cannula* 4 36 09/12/24 07:50 91 24 100 09/12/24 07:48 91 23 104/59 100 Nasal Cannula 4.0 09/12/24 07:35 93 25 59 09/12/24 07:33 98.8 94 27 103/65 Nasal Cannula 4.0 09/12/24 07:20 93 22 09/12/24 07:18 94 23 105/74 100 BIPAP 100 09/12/24 07:05 97 25 91 09/12/24 07:00 98 26 86/67 100 BIPAP 100 09/12/24 06:45 101 24 122/70 100 BIPAP 100 09/12/24 06:36 100 25 40 09/12/24 06:15 105 27 138/58 87 BIPAP 100 09/12/24 06:00 112 31 120/77 100 BIPAP 100 09/12/24 05:45 116 29 126/49 98 BIPAP 100 09/12/24 05:30 122 29 113/84 94 BIPAP 100 09/12/24 05:30 98 Bi-PAP+ 100 09/12/24 05:22 120 34 09/12/24 03:43 95 29 40 09/12/24 03:25 123 27 106/77 100 BIPAP 40 LABS: Hematology Labs: Test 09/12/24 04:14 09/10/24 19:55 Range/Units White Blood Count 20.6 H 4.8-10.8 K/uL Red Blood Count 3.89 L 4.00-5.50 MIL/uL Hemoglobin 12.3 12.0-16.0 g/dL Hematocrit 38.5 36-48 % Mean Corpuscular Volume 99.0 79-99 fL Mean Corpuscular Hemoglobin 31.6 27.0-33.0 pg Mean Corpuscular Hemoglobin Concent 31.9 L 32.0-36.0 g/dL Red Cell Distribution Width 13.8 11.0-15.5 % Platelet Count 193 130-400 K/uL Mean Platelet Volume 10.6 H 7.5-10.5 fL Immature Granulocyte % (Auto) 0.7 0-1 % Neutrophils (%) (Auto) 92.4 H 40.0-77.0 % Lymphocytes (%) (Auto) 1.6 L 21.0-51.0 % Monocytes (%) (Auto) 3.8 3.0-13.0 % Eosinophils (%) (Auto) 1.3 0.0-8.0 % Basophils (%) (Auto) 0.2 0.0-5.0 % Neutrophils # (Auto) 19.0 H 1.8-7.7 K/uL Lymphocytes # (Auto) 0.3 L 1.0-4.8 K/uL Monocytes # (Auto) 0.8 0.1-1.0 K/uL Eosinophils # (Auto) 0.27 0.00-0.70 K/uL Basophils # (Auto) 0.04 0.00-0.20 K/uL Absolute Immature Granulocyte (auto 0.15 0-1 K/uL Nucleated Red Blood Cells 0.1 0.0-0.19 % White Cell Morphology Comment See comments Chemistry Labs: Test 09/12/24 07:39 09/12/24 04:14 09/11/24 17:23 09/10/24 19:55 Range/Units Whole Blood Glucose 63 L 70-110 MG/DL Sodium Level 127 L 136-145 mmol/L Potassium Level 5.0 3.5-5.1 mmol/L Chloride Level 92 L 101-111 mmol/L Carbon Dioxide Level 15 L 21-32 mmol/L Blood Urea Nitrogen 18 7-18 mg/dL Creatinine 1.6 H 0.5-1.0 mg/dL Glomerular Filtration Rate Calc 36 >90 mL/min Random Glucose 73 70-105 mg/dL Total Calcium 8.5 8.5-10.1 mg/dL Phosphorus Level 3.1 2.5-4.9 mg/dL Magnesium Level 2.60 H 1.80-2.40 mg/dL Iron Level 37 L 50-170 mcg/dL Total Iron Binding Capacity 184 L 250-450 mcg/dL Percent Iron Saturation 20.1 L 22-44 % Procalcitonin 7.93 H 0.05-0.5 ng/mL Lactic Acid Level 2.9 H 0.8-2.5 mmol/L Total Creatine Kinase 839 #*H 21-232 U/L Troponin I High Sensitivity 166 *H 4-50 ng/L B-Type Natriuretic Peptide 2250 H 0-100 pg/mL Coagulation Labs: Test 09/12/24 07:13 Range/Units Activated Partial Thromboplast Time 47.7 H 26.3-35.5 SEC DIAGNOSTICS / RADIOLOGY RESULTS: Signed PATIENT: RICK PALUMBO MR#: [id number] : 1960 SEX: F AGE: 63 LOCATION: 2CH ORDER 32 STATUS: ADM IN REPORT#: [id number] SERVICE 30 REASON: POST INTUBATION ORDERING PHYSICIAN: ELAINE SALAZAR MD PROCEDURE: CXR1VW - CHEST 1VW CHEST 1VW HISTORY: Post intubation COMPARISON: None FINDINGS: A frontal projection of the chest was obtained. There are bilateral pulmonary infiltrates suggestive of pulmonary vascular congestion with possible superimposed pneumonitis. Endotracheal tube is seen with distal tip at 1.6 cm above reg. The heart is borderline enlarged. Pacemaker is seen entering from the left. All the lines and tubes are again seen in place. Aortic calcifications are seen. IMPRESSION: 1. Bilateral pulmonary infiltrates are seen suggestive of pulmonary vascular congestion with possible superimposed pneumonitis. DICTATED BY: JANIS ZAMARRIPA MD DATE: 09/12/242025 ELECTRONICALLY SIGNED BY: JANIS ZAMARRIPA MD DATE: 09/12/242028 PLAN Airway assessment and respiratory monitoring BiPAP / 50% Monitor electrolytes and replace accordingly Monitor kidney function Supplemental O2 and maintain O2 sats above 92% chest x-ray in the morning Strict intake and output Fluid restriction of 1.5 L Atrovent treatments p.r.n. next item Monitor for fevers and treat aggressively Follow blood cultures Bicarb pills 650 3 times a day Bicarb pushes p.r.n. Follow ABGs CMP q.4 hours NEURO: Minimize central acting medications as possible. Fall Precautions. Well lighted room through the day and minimize interruptions through the night to prevent acute delirium. PULMONARY: Supplemental 02 as needed Titrate Fio2 to keep Spo2 > or = 90% DuoNebs and CPT as needed IS hourly while awake for pulmonary hygiene Out of bed to chair as tolerated BiPAP as needed 08/08 50% CARDIOVASCULAR: Follow hemodynamics. Titrate vasopressor to keep MAP >65 or systolic blood pressure >95mmHg NSTEMI likely type 2 from demand ischemia Trend troponins Glucose goal of 80-180 mg/dL Telemetry monitoring Drips: None LINES: PIV Pending midline GI & NUTRITION: Continue nutritional support Aspirations precautions Prokinetic agents and laxatives as needed Heart healthy KIDNEYS & ELECTROLYTES: Strict monitoring of intake and output Daily weights Avoid nephrotoxic agents Monitor electrolytes and replace as needed Goal urine output of 30mL/hr or 0.5mL/kg/hr Urine output: [ ] Fluid Balance: [ ] ENDOCRINE: Maintain blood glucose between 100-180 at all times. Insulin sliding scale for blood glucose management INFECTIOUS DISEASE: Trend temperature. Max-culture if febrile. Micro: [ ] Cultures growing Gram-positive cocci2/2 Antibiotics: Silvana is allergic to vancomycin Zosyn HEMATOLOGY & COAGULATION: Monitor H&H. Keep Hgb > 7 Transfuse 1 unit of PRBC for Hgb < 7 Transfuse 1 pack of platelets of platelets < 20, 000 Watch for any signs and symptoms of bleeding SKIN: Pressure ulcer prevention per facility protocol Rehab: PT/OT Prophylaxis: GI: Protonix DVT: Patient is on Eliquis 2.5 mg p.o. b.i.d. Code Status: Full Resuscitation Disposition: May downgrade to PCCU Other: Critical care time This patient required multiple bedside visits to manage the patient, review blood gases, coordinate with respiratory, nurses, talk to [Specialist] review radiology exams, talk to the family members and discuss advanced directives. I personally spent 60 minutes of critical care time in treatment of this patient. This includes patient management, time at bedside, time reviewing tests, labs, appropriate images and studies, documentation, and patient care coordination. This time excludes separately billable procedures. EDWARD HINOJOSA [facility] Sep 12, 2024 11:10
[2024-09-12] MEDS ORDERED: COMPOUND IV MISC 1 EACH IVSOLN MISC PRN (11:30)
[2024-09-12 11:32] LABS: ABG BASE EXCESS -5.4 mmol/L (-2.0-3.0); ABG HCO3 17.5 mmol/L (21.0-28.0); ABG OXYGEN SATURATION 98.4 % (94.0-98.0); ABG PCO2 27 mmHg (32-45); ABG PH 7.435 (7.350-7.450); CARBON MONOXIDE 0.3 % (0.5-1.5); HHb 1.6; PO2, ARTERIAL BG 135.1 mmHg (83.0-108.0); VENT MODE, BG BIPAP 12 6 (ROOM AIR)
[2024-09-12] MEDS: MEROPENEM 1 GM in 0.9%NACL 100ML 100 ML IV SCH (11:47)
--- NOTE | 2024-09-12 12:24 | HMCIMG ---
INDICATION: HYPOXIC RESP FAILURE TECHNIQUE: CHEST 1VW COMPARISON: 09/10/2024 FINDINGS/IMPRESSION: Continued bilateral airspace consolidation Mild cardiomegaly with CABG changes and left-sided AICD. Mild degenerative changes of the spine. The visualized upper abdomen appears unremarkable.
[2024-09-12] MEDS: 0.9%NACL 1000ML 1,776 ML IV ONE (14:00)
[2024-09-12] MEDS: miDODRine HCL 5 MG TABLET PO SCH (14:02)
[2024-09-12] MEDS: SODIUM BICARB 50MEQ 50ML VIAL IV ONE ×4 (14:46→20:34)
--- NOTE | 2024-09-12 16:36 | EKG ---
[facility] Test Date: 2024-09-12 Test Time: 16:33:52 Pat Name: RICK PALUMBO Department: [facility] Room: 209 Gender: F Banking Paralegal: : 1960 Requested By: EDWARD HINOJOSA Order Number: [id number] Reading MD: Reese Gates Measurements Intervals [place] Rate: 114 P: 0 MT: 0 QRS: -61 QRSD: 142 T: 38 QT: 360 QTc: 496 Interpretive Statements Sinus tachycardia with ventricular-paced rhythm/tracking Compared to ECG 09/10/2024 20:18:43 Ventricular paced rhythm remains Electronically Signed On 09-16-2024 18:35:54 TRACK WATCHMAN by Reese Gates Please click the below link to view image of tracing.
[2024-09-12 16:48] LABS: ABG BASE EXCESS -7.7 mmol/L (-2.0-3.0); ABG HCO3 14.6 mmol/L (21.0-28.0); ABG OXYGEN SATURATION 98.6 % (94.0-98.0); ABG PCO2 22 mmHg (32-45); ABG PH 7.438 (7.350-7.450); CARBON MONOXIDE 0.1 % (0.5-1.5); HHb 1.4; PO2, ARTERIAL BG 155.3 mmHg (83.0-108.0); VENT MODE, BG BIPAP 12 6 (ROOM AIR)
[2024-09-12 16:52] LABS: BASOPHILS # (AUTO) 0.04 K/uL (0.00-0.20); BASOPHILS % (AUTO) 0.2 % (0.0-5.0); EOSINOPHILS # (AUTO) 0.24 K/uL (0.00-0.70); EOSINOPHILS % (AUTO) 1.1 % (0.0-8.0); HEMATOCRIT 33.2 % (36-48); IMMATURE GRANULOCYTE ABSOLUTE 0.18 K/uL (0-1); LYMPHOCYTES # (AUTO) 0.3 K/uL (1.0-4.8); LYMPHOCYTES % (AUTO) 1.5 % (21.0-51.0); MEAN CORPUSCULAR HEMOGLOBIN 31.5 pg (27.0-33.0); MEAN CORPUSCULAR HGB CONC 31.9 g/dL (32.0-36.0); MEAN CORPUSCULAR VOLUME 98.8 fL (79-99); MONOCYTES # (AUTO) 0.6 K/uL (0.1-1.0); MONOCYTES % (AUTO) 2.8 % (3.0-13.0); NEUTROPHILS % (AUTO) 93.6 % (40.0-77.0); NUCLEATED RED BLOOD CELLS 0.1 % (0.0-0.19); PLATELET COUNT (AUTO) 185 K/uL (130-400); RED BLOOD CELL COUNT(AUTO) 3.36 MIL/uL (4.00-5.50); WHITE BLOOD COUNT (AUTO) 21.4 K/uL (4.8-10.8)
--- NOTE | 2024-09-12 17:21 | HMCIMG ---
CHEST 1VW HISTORY: Respiratory distress COMPARISON: 09/12/2024 FINDINGS: A frontal projection of the chest was obtained. Mild bilateral pulmonary infiltrates are seen may be related to mild pulmonary vascular congestion with possible superimposed pneumonitis. Poststernotomy changes are seen. The heart is enlarged. Degenerative changes of the thoracolumbar spine are present. Pacemaker is seen entering from the left. No evidence of aortic calcification is seen. IMPRESSION: 1. Mild bilateral pulmonary infiltrates are seen may be related to mild pulmonary vascular congestion with possible superimposed pneumonitis.
[2024-09-12 17:23] LABS: ALBUMIN 2.3 g/dL (3.5-5.0); CREATININE 1.8 mg/dL (0.5-1.0); MAGNESIUM 2.2 mg/dL (1.80-2.40); POTASSIUM 4.7 mmol/L (3.5-5.1); TOTAL PROTEIN, SERUM 5.5 g/dL (6.0-8.3)
[2024-09-12] MEDS: phenylEPHRINE HCL 10 MG in 0.9% NACL 250ML 250 ML IV PRN (17:27)
[2024-09-12] MEDS ORDERED: acetaMINOPHEN 650 MG SUPPOSITORY RC PRN (17:30)
[2024-09-12] MEDS: DEXTROSE 50%-WATER 50 ML DISP.SYRIN IV ONE (19:17)
[2024-09-12 20:22] LABS: BASOPHILS # (AUTO) 0.06 K/uL (0.00-0.20); BASOPHILS % (AUTO) 0.3 % (0.0-5.0); EOSINOPHILS # (AUTO) 0.21 K/uL (0.00-0.70); EOSINOPHILS % (AUTO) 0.9 % (0.0-8.0); HEMATOCRIT 30.3 % (36-48); IMMATURE GRANULOCYTE ABSOLUTE 0.21 K/uL (0-1); LYMPHOCYTES # (AUTO) 0.3 K/uL (1.0-4.8); LYMPHOCYTES % (AUTO) 1.2 % (21.0-51.0); MEAN CORPUSCULAR HEMOGLOBIN 32.5 pg (27.0-33.0); MEAN CORPUSCULAR HGB CONC 33.7 g/dL (32.0-36.0); MEAN CORPUSCULAR VOLUME 96.5 fL (79-99); MONOCYTES # (AUTO) 0.7 K/uL (0.1-1.0); NEUTROPHILS % (AUTO) 93.7 % (40.0-77.0); NUCLEATED RED BLOOD CELLS 0.2 % (0.0-0.19); PLATELET COUNT (AUTO) 183 K/uL (130-400); RED BLOOD CELL COUNT(AUTO) 3.14 MIL/uL (4.00-5.50); RED CELL DISTRIBUTION WIDTH 13.9 % (11.0-15.5); WHITE BLOOD COUNT (AUTO) 22.5 K/uL (4.8-10.8)
--- NOTE | 2024-09-12 20:29 | HMCIMG ---
CHEST 1VW HISTORY: Post intubation COMPARISON: None FINDINGS: A frontal projection of the chest was obtained. There are bilateral pulmonary infiltrates suggestive of pulmonary vascular congestion with possible superimposed pneumonitis. Endotracheal tube is seen with distal tip at 1.6 cm above reg. The heart is borderline enlarged. Pacemaker is seen entering from the left. All the lines and tubes are again seen in place. Aortic calcifications are seen. IMPRESSION: 1. Bilateral pulmonary infiltrates are seen suggestive of pulmonary vascular congestion with possible superimposed pneumonitis.
[2024-09-12] MEDS: proPOFol 1000 MG/100 ML 100 ML IV ONE (20:35)
[2024-09-12 20:41] LABS: CREATININE 2.1 mg/dL (0.5-1.0)
[2024-09-12 20:51] LABS: BILIRUBIN,TOTAL 1.1 mg/dL (0.2-1.0); TOTAL PROTEIN, SERUM 4.8 g/dL (6.0-8.3)
[2024-09-12] MEDS ORDERED: SODIUM BICARBONATE 650 MG TAB PO SCH (21:00)
[2024-09-12 21:50] LABS: ABG BASE EXCESS -0.9 mmol/L (-2.0-3.0); ABG HCO3 21.1 mmol/L (21.0-28.0); ABG OXYGEN SATURATION 99.9 % (94.0-98.0); ABG PCO2 28 mmHg (32-45); ABG PH 7.491 (7.350-7.450); DEVICE COMMENT RN, RR; PO2, ARTERIAL BG 423.7 mmHg (83.0-108.0); VENT MODE, BG AC (ROOM AIR)
--- NOTE | 2024-09-12 22:23 | ERN ---
CODEBLUE/INTUBATION/PROCEDURE DATE: 09/12/24 I responded to rapid response and at the request of the ICU team mid-level provider I evaluated the patient's pulmonary status. She was very tachypneic on maximal BiPAP support A decision to provide endotracheal intubation and mechanical ventilator support was done. She had multiple medical problems as outlined in the problem list and was on pressors prior to intubation. She was desaturating to 70s on BiPAP and 100% oxygen. Procedure note-endotracheal intubation 7:40 p.m. Indication for the procedure-septic shock, acute hypoxemic respiratory failure failed BiPAP therapy Premedication and anesthesia-heart rate blood pressure pulse oximetry and respiratory rate were continuously monitored before during and after the procedure by an RN Etomidate 20 mg IV, rocuronium 50 mg IV Performing physician-Liliana BECKCP Procedure-deemed emergent severe respiratory distress and after time-out and pause, 7.5 ET tube was advanced into the trachea after well visualization of the vocal cords under glide scope MAC 3 blade guidance. Bedside confirmation was done with good breath sounds bilaterally to auscultation and excellent color change on the capnometer. ET tube was secured in place Postprocedure chest x-ray-ET tube placement was confirmed and position adjusted for optimal gas exchange. Recommendations-patient placed on mechanical ventilator-discussed settings with the RT Procedure [id number] catheter placement Indication-septic shock, acute hypoxemic respiratory failure Performing physicianEric Ken Premedication and anesthesia- 1% lidocaine local Procedure-procedure was deemed emergent After an appropriate time-out and pause, patient's right internal jugular area was prepped and draped in a sterile fashion using modified Seldinger technique right IJ vein was cannulated and a guidewire was advanced. Subsequently using the dilator and skin incision at the site of insertion a tract was created and a triple-lumen catheter was advanced over the guidewire with removal of the guidewire. Excellent blood return from all 3 ports was noted. Ports were flushed and the catheter was sutured to skin in place. The antibiotic disc was placed at the insertion site and dressing was applied. No immediate complications. Patient tolerated the procedure extremely well Recommendations to monitor the femoral site and once the hemodynamics improve, to consider removal of the triple-lumen catheter to avoid complications. Reviewed (1) Septic shock (2) Lactic acidosis (3) Acute hypoxemic respiratory failure (4) Acute kidney injury (5) Prolonged QT syndrome (6) NSTEMI (non-ST elevated myocardial infarction) (7) Lupus (systemic lupus erythematosus) (8) Steroid myopathy (9) Adrenal insufficiency (10) Rhabdomyolysis (11) Generalized weakness (12) Rheumatoid arthritis Mechanical ventilatory support and management per intensive care unit team Dressing and monitoring the right internal jugular triple-lumen catheter site and dressing changes per nursing [facility] MD Sep 12, 2024 22:23
[2024-09-13] VITALS (174 sets, daily range): BP systolic 94–141; BP diastolic 46–76; PULSE 67–88; RESP 8–23; TEMP 97.5–99.4; O2SAT 99–100
[2024-09-13] MEDS ORDERED: SODIUM BICARBONATE 650 MG TAB PO SCH
[2024-09-13 00:39] LABS: ABG BASE EXCESS 1.8 mmol/L (-2.0-3.0); ABG HCO3 22.8 mmol/L (21.0-28.0); ABG OXYGEN SATURATION 99.7 % (94.0-98.0); ABG PCO2 27 mmHg (32-45); ABG PH 7.549 (7.350-7.450); DEVICE COMMENT RN, RR; PO2, ARTERIAL BG 252.8 mmHg (83.0-108.0); VENT MODE, BG AC (ROOM AIR)
[2024-09-13] MEDS: ETOMIDATE 20MG VIAL IVP ONE (02:11)
[2024-09-13] MEDS: proPOFol 1000 MG/100 ML IV PRN (02:14)
--- NOTE | 2024-09-13 02:16 | NUR ---
1900 FAMILY AT BEDSIDE NOTIFIED OF INTUBATION PT WITH LABORED BREATHING, MOTTLED TO BODY, PALE. O2 SAT66 -80 VIA PULSE OX 190 NONOG SHOE LAY OUT PLANNER NOTIFIED OF PT STATUS. ORDERED FOR ER MD TO INTUBATE. 1926 ER MD THOPU AT BEDSIDE READY TO INTUBATE. ETOMIDATE 20MG GIVEN IVP 192 ROCURONIUM 50 MG GIVEN IVP 192 PT INTUBATED WITHOUT DIFFICULTY ETT 7.5 AT 22 LIP 193 PROPOFOL STARTED AT 15MCG FAMILY GIVEN UPDATE. FAMILY AT BEDSIDE
[2024-09-13] MEDS ORDERED: rocuRONium bROMide 10MG/1ML 5ML VL IV SCH (02:30)
[2024-09-13 04:47] LABS: ABG BASE EXCESS 3.6 mmol/L (-2.0-3.0); ABG HCO3 26.1 mmol/L (21.0-28.0); ABG OXYGEN SATURATION 99.1 % (94.0-98.0); ABG PCO2 33 mmHg (32-45); ABG PH 7.513 (7.350-7.450); DEVICE COMMENT RN, RR; PO2, ARTERIAL BG 146.4 mmHg (83.0-108.0); VENT MODE, BG AC (ROOM AIR)
[2024-09-13 04:50] LABS: BASOPHILS # (AUTO) 0.04 K/uL (0.00-0.20); BASOPHILS % (AUTO) 0.2 % (0.0-5.0); EOSINOPHILS # (AUTO) 0.12 K/uL (0.00-0.70); EOSINOPHILS % (AUTO) 0.7 % (0.0-8.0); HEMATOCRIT 32.1 % (36-48); LYMPHOCYTES # (AUTO) 0.3 K/uL (1.0-4.8); LYMPHOCYTES % (AUTO) 1.9 % (21.0-51.0); MEAN CORPUSCULAR HEMOGLOBIN 31.8 pg (27.0-33.0); MEAN CORPUSCULAR HGB CONC 33.3 g/dL (32.0-36.0); MEAN CORPUSCULAR VOLUME 95.3 fL (79-99); MONOCYTES # (AUTO) 0.7 K/uL (0.1-1.0); MONOCYTES % (AUTO) 3.7 % (3.0-13.0); NEUTROPHILS # (AUTO) 16.3 K/uL (1.8-7.7); NEUTROPHILS % (AUTO) 92.4 % (40.0-77.0); NUCLEATED RED BLOOD CELLS 0.2 % (0.0-0.19); PLATELET COUNT (AUTO) 177 K/uL (130-400); RED BLOOD CELL COUNT(AUTO) 3.37 MIL/uL (4.00-5.50); RED CELL DISTRIBUTION WIDTH 13.9 % (11.0-15.5); WHITE BLOOD COUNT (AUTO) 17.6 K/uL (4.8-10.8)
[2024-09-13 05:50] LABS: ALBUMIN 2.2 g/dL (3.5-5.0); BILIRUBIN,TOTAL 1.6 mg/dL (0.2-1.0); POTASSIUM 4.2 mmol/L (3.5-5.1)
--- NOTE | 2024-09-13 05:58 | PN ---
[facility] Cardiology Progress Note CARDIOLOGY PROGRESS NOTE SEPTEMBER 13, 2024 Problems: 1. Acute on chronic systolic congestive heart failure with brain natriuretic peptide level of 2250 on admission 2. Community-acquired pneumonia and sepsis 3. Rhabdomyolysis 4. Elevated troponin consistent with type 2 supply demand mismatch in the setting of sepsis 5. Paroxysmal fibrillation 6. Chronic anticoagulation for atrial fibrillation and history of lupus anticoagulant 7. CAD status post remote aortic coronary bypass graft surgery with LV ejection fraction of 25-30% 8. [facility] Bi V PCD implant 1022 9. Dyslipidemia 10. Acute on chronic Chronic kidney disease 11. Right occipital CVA 2018 Patient's 2D echocardiogram shows ejection fraction of 25-30% grade 2 diastolic left ventricular dysfunction. There was ycgj-xk-xysrajmh mitral valve regurgitation and moderate tricuspid regurgitation. Blood pressure is running 100 systolic heart rate in the 70s the patient is afebrile[place] [address] hemoglobin 10.7 platelet count 175165. Potassium 4.0 BUN 26 creatinine 2.1 Up from 1.3 on admission. The patient continues on amiodarone apixaban ferrous sulfate insulin antibiotics Solu-Medrol pantoprazole and midodrine. Her furosemide order yesterday. The patient's home dose of Entresto atorvastatin metoprolol succinate levothyroxine are all on hold. Pressures are marginal. We will plan on restarting her levothyroxine and furosemide. ARELI RIVERA MD Sep 13, 2024 05:58
[2024-09-13] MEDS: levoTHYROxine 25 MCG TABLET PO SCH (07:14)
[2024-09-13] MEDS ORDERED: furoSEMIDE 20MG VIAL IV SCH (10:00)
--- NOTE | 2024-09-13 11:06 | PN ---
[facility] PROGRESS NOTE Date Patient Seen: Sep 13, 2024 Time of Visit: 11:06 Supervising Physician: Reginaldo Toribio MD Primary Care Physician: Geremias Everett Outpatient Specialists: [ ] Inpatient Consults: DR RIVERA PROBLEM LIST: Septic shock requiring pressors Acute hypoxemic respiratory failure, requiring intubation 09/12/24 Acute metabolic encephalopathy Severe sepsis, POA Gram-positive bacteremia, POA 2/2 Acute on chronic systolic and diastolic heart failure, POA EF 40% in 2021 now 25-30% Suspected healthcare associated pneumonia, POA Anion gap metabolic acidosis 2/2 BLAS Rhabdomyolysis POA, resolving Elevated troponin Essential hypertension Hypokalemia Hyperlipidemia Lupus Dyslipidemia BLAS on CKD POA Bi V ICD ( [facility]) implanted in 2021 Atrial fibrillation on chronic anticoagulation Severe CAD with remote stent and CABG 7 years ago Remote Right occipital CVA in 2018 INTERVAL HISTORY: 09/12-Patient was transferred to the ICU overnight due to worsening tachypnea and respiratory status. She was placed on BiPAP and tolerating well this morning. Family is at bedside and asked if patient was to need intubation and resuscitation and patient voiced that she would be okay with getting intubated if needed. Wishes to remain full code. PH this morning 7.43, pCO2 of 27 PO2 of 135 with a bicarb of 17.5. WBCs 20.6 increased since yesterday MCHC 31.9 platelet count 404881. On chemistry sodium was 127 chloride 92 carbon dioxide of 15 creatinine of 1.6 magnesium 2.6. Patient on bicarb tablets 650 t.i.d.. Holding off from bicarb drip due to EF of 25% and already on acute on chronic CHF. Patient currently on Zyvox and Zosyn, change Zosyn to meropenem. I notified patient's family of current status and in the possibility of worsening condition due to complicated sepsis with bacteremia on top of pneumoniae and heart failure with a debilitated heart. Family and patient verbalized unders tanding and agree with plan of care. For now we will avoid bicarb drip in order to prevent further fluid overload but we will give bicarb pushes as needed. Kidney function worsened today with decreased urine output. Yanez to be inserted in order to maintain a strict I&O. Patient is already on Lasix 20 mg q.12 hours. 1630: Called to the bedside due to patient with paced ventricular tachycardia in the 130s, ABG +with a pH of 7.43, pCO2 of 22 PO2 155 bicarb of 114.6 base excess -7.7. For amps of bicarb pushes ordered and administered. Patient remains hemodynamically stable but blood pressure is marginal. Due to tachycardia Added Luis-Synephrine p.r.n. to maintain map above 65. Per Dr. Guy advise patient may need pushes of bicarb q.4 hours PRN. Patient tachypneic, tachycardic. We will continue to try BiPAP with Precedex drip for now. and hold off on intubation unless absolutely necessary due to the possibility of deterioration. I have made family who is at the bedside aware of patient's worsening condition. Kept them informed about the plan of care and they verbalized agreement. Answered all their questions. 09/13-patient is status post intubation overnight for respiratory failure and airway protection. She was placed on pressors with Luis-Synephrine now at 0.3 mcg/kg/min with a blood pressure 104/64 heart rate in the 80s respiratory rate of 17 saturating 100%, T-max 102.0 in the last 24 hours. ABG pH of 7.5-1 pCO2 of 33 PO2 of 146 bicarb 26.1. Ventilator settings adjusted to AC/VC tidal volume of 420 respiratory rate of 14 FiO2 of 30 % and PEEP of5. This morning patient is afebrile WBCs trending down 17.6 today from 20/ 0.5 yesterday H&H is 10.7/32.1 platelet count [id number] neutrophils trending down as well 92.4. Sputum culture with no organisms seen. Blood culture from 09/11/24 growing Gram- positive cocci in clusters coagulase-negative Staphylococcus. On chest x-ray ET tube on 1.0 cm above the reg communicated with RT to pull 1.5 cm. Increased pulmonary vascular congestion noted to bilateral lobes with bilateral pulmonary infiltrates seen. Pending ID Consult. REVIEW OF SYSTEMS: Unable to perform due to patient's sedated intubated. PHYSICAL EXAM: GENERAL: alert, weak, awake oriented x 3 HEENT: EOMI, Sclera non icteric, moist mucosa NECK: Supple, no JVD, trachea midline LUNGS: Diminished, breath sounds bilaterally. Wheezes to right lower lobe. HEART: Regular rate and rhythm. Normal S1 and S2, without murmurs ABD: Abdomen soft, nontender. Bowel sounds present EXT: No clubbing cyanosis or edema NEURO: Alert and oriented to person, follows commands Vital Signs (last 8hr) Date Time Temp Pulse Resp B/P (MAP) Pulse Ox O2 Delivery O2 Flow Rate FiO2 09/13/24 10:08 80 17 104/64 (77) 100 09/13/24 10:03 80 14 114/63 (80) 100 09/13/24 10:00 81 12 100 09/13/24 09:58 78 14 113/53 (73) 99 09/13/24 09:53 80 13 108/69 (82) 100 09/13/24 09:48 81 9 108/70 (83) 100 09/13/24 09:46 80 40 09/13/24 09:45 80 15 100 09/13/24 09:43 82 9 113/70 (84) 100 09/13/24 09:38 82 15 106/66 (79) 100 09/13/24 09:33 81 107/73 99 09/13/24 09:33 79 12 107/73 (84) 100 09/13/24 09:30 79 14 99 09/13/24 09:30 79 14 99 09/13/24 09:28 80 12 108/69 100 09/13/24 09:28 80 12 108/69 (82) 100 09/13/24 09:23 80 14 108/64 (79) 100 09/13/24 09:23 80 14 108/64 100 09/13/24 09:18 80 13 109/63 100 09/13/24 09:18 80 13 109/63 (78) 100 09/13/24 09:15 80 15 100 09/13/24 09:15 80 15 100 09/13/24 09:13 82 9 113/64 (80) 100 09/13/24 09:08 79 14 106/66 (79) 100 09/13/24 09:03 78 14 107/72 (84) 100 09/13/24 09:00 79 14 100 09/13/24 09:00 79 14 100 09/13/24 08:58 78 13 109/63 (78) 100 09/13/24 08:58 78 13 109/63 100 09/13/24 08:53 81 10 104/62 (76) 100 09/13/24 08:53 81 10 104/62 100 09/13/24 08:48 81 12 110/72 99 09/13/24 08:48 81 12 110/72 (85) 99 09/13/24 08:45 78 12 100 09/13/24 08:45 78 12 100 09/13/24 08:43 79 12 111/69 100 09/13/24 08:43 79 12 111/69 (83) 100 09/13/24 08:38 80 10 107/66 (80) 100 09/13/24 08:38 80 10 107/66 100 09/13/24 08:33 80 10 110/66 100 09/13/24 08:33 80 10 110/66 (81) 100 09/13/24 08:30 79 12 100 09/13/24 08:30 79 12 100 09/13/24 08:18 80 10 112/75 100 09/13/24 08:18 80 10 112/75 (87) 100 09/13/24 08:15 78 12 100 09/13/24 08:15 78 12 100 09/13/24 08:03 80 9 114/70 100 09/13/24 08:03 80 9 114/70 (85) 100 09/13/24 08:00 79 12 100 09/13/24 08:00 79 12 100 09/13/24 07:48 79 9 113/67 (82) 100 09/13/24 07:48 79 9 113/67 100 09/13/24 07:45 79 12 100 09/13/24 07:45 79 12 100 09/13/24 07:33 79 10 113/68 100 09/13/24 07:33 79 10 113/68 (83) 100 09/13/24 07:30 81 12 100 09/13/24 07:30 81 12 100 09/13/24 07:18 80 8 110/74 (86) 98 09/13/24 07:18 80 18 110/74 98 09/13/24 07:15 98.4 80 12 98 09/13/24 07:15 80 12 98 09/13/24 07:03 80 8 115/75 (88) 99 09/13/24 07:03 80 12 115/75 98 Ventilator 60 09/13/24 07:00 40 09/13/24 07:00 98.4 80 12 98 09/13/24 07:00 100 Ventilator+ 0 40 09/13/24 06:48 88 10 111/67 98 Ventilator 60 09/13/24 06:33 83 9 107/70 100 Ventilator 60 09/13/24 06:20 83 12 09/13/24 06:18 83 13 110/75 95 Ventilator 60 09/13/24 06:03 85 17 103/61 100 Ventilator 60 09/13/24 05:48 83 14 102/66 100 Ventilator 60 09/13/24 05:33 83 14 102/66 100 Ventilator 60 09/13/24 05:18 82 14 98/63 100 Ventilator 60 09/13/24 05:03 81 16 101/64 100 Ventilator 60 09/13/24 04:48 82 15 102/63 99 Ventilator 60 09/13/24 04:33 81 15 98/60 100 Ventilator 60 09/13/24 04:18 79 12 104/65 95 Ventilator 60 09/13/24 04:03 40 09/13/24 04:03 79 13 107/68 94 Ventilator 60 09/13/24 04:00 100 Ventilator+ 0 60 09/13/24 03:48 97.5 78 13 100/67 100 Ventilator 60 09/13/24 03:33 76 13 106/59 99 Ventilator 60 09/13/24 03:18 75 12 98/61 100 Ventilator 60 09/13/24 03:07 75 40 LABS: Hematology Labs: Test 09/13/24 04:28 Range/Units White Blood Count 17.6 H 4.8-10.8 K/uL Red Blood Count 3.37 L 4.00-5.50 MIL/uL Hemoglobin 10.7 L 12.0-16.0 g/dL Hematocrit 32.1 L 36-48 % Mean Corpuscular Volume 95.3 79-99 fL Mean Corpuscular Hemoglobin 31.8 27.0-33.0 pg Mean Corpuscular Hemoglobin Concent 33.3 32.0-36.0 g/dL Red Cell Distribution Width 13.9 11.0-15.5 % Platelet Count 177 130-400 K/uL Mean Platelet Volume 11.2 H 7.5-10.5 fL Immature Granulocyte % (Auto) 1.1 H 0-1 % Neutrophils (%) (Auto) 92.4 H 40.0-77.0 % Lymphocytes (%) (Auto) 1.9 L 21.0-51.0 % Monocytes (%) (Auto) 3.7 3.0-13.0 % Eosinophils (%) (Auto) 0.7 0.0-8.0 % Basophils (%) (Auto) 0.2 0.0-5.0 % Neutrophils # (Auto) 16.3 H 1.8-7.7 K/uL Lymphocytes # (Auto) 0.3 L 1.0-4.8 K/uL Monocytes # (Auto) 0.7 0.1-1.0 K/uL Eosinophils # (Auto) 0.12 0.00-0.70 K/uL Basophils # (Auto) 0.04 0.00-0.20 K/uL Absolute Immature Granulocyte (auto 0.20 0-1 K/uL Nucleated Red Blood Cells 0.2 H 0.0-0.19 % Chemistry Labs: Test 09/13/24 09:40 09/13/24 04:31 09/13/24 04:28 09/12/24 16:44 Range/Units Lactic Acid Level 7.6 H 0.8-2.5 mmol/L Whole Blood Glucose 125 H 70-110 MG/DL Sodium Level 134 L 136-145 mmol/L Potassium Level 4.2 3.5-5.1 mmol/L Chloride Level 90 *L 101-111 mmol/L Carbon Dioxide Level 30 21-32 mmol/L Blood Urea Nitrogen 31 H 7-18 mg/dL Creatinine 2.0 H 0.5-1.0 mg/dL Glomerular Filtration Rate Calc 27 >90 mL/min Random Glucose 114 H 70-105 mg/dL Total Calcium 7.3 L 8.5-10.1 mg/dL Total Bilirubin 1.6 #H 0.2-1.0 mg/dL Aspartate Amino Transf (AST/SGOT) 1075 *H 10-37 U/L Alanine Aminotransferase (ALT/SGPT) 1315 #*H 12-78 U/L Alkaline Phosphatase 75 50-136 U/L Total Creatine Kinase 498 *H 21-232 U/L Total Protein 5.0 L 6.0-8.3 g/dL Albumin 2.2 L 3.5-5.0 g/dL Procalcitonin 10.53 H 0.05-0.5 ng/mL Serum Osmolality 276 L 278-305 mOsm/kg Magnesium Level 2.20 1.80-2.40 mg/dL Test 09/12/24 14:43 09/12/24 04:14 09/11/24 17:23 Range/Units Whole Blood Ketones Quantitative 0.2 0.0-0.6 mmol/L Phosphorus Level 3.1 2.5-4.9 mg/dL Iron Level 37 L 50-170 mcg/dL Total Iron Binding Capacity 184 L 250-450 mcg/dL Percent Iron Saturation 20.1 L 22-44 % Troponin I High Sensitivity 166 *H 4-50 ng/L Coagulation Labs: Test 09/12/24 07:13 Range/Units Activated Partial Thromboplast Time 47.7 H 26.3-35.5 SEC DIAGNOSTICS / RADIOLOGY RESULTS: [ ] PLAN Airway assessment and respiratory monitoring BiPAP / 50% Monitor electrolytes and replace accordingly Monitor kidney function Supplemental O2 and maintain O2 sats above 92% chest x-ray in the morning Strict intake and output Fluid restriction of 1.5 L Atrovent treatments p.r.n. next item Monitor for fevers and treat aggressively Follow blood cultures Bicarb pushes p.r.n. Follow ABGs CMP q.4 hours NEURO: Minimize central acting medications as possible. Fall Precautions. Well lighted room through the day and minimize interruptions through the night to prevent acute delirium. PULMONARY: Supplemental 02 as needed Titrate Fio2 to keep Spo2 > or = 90% DuoNebs and CPT as needed IS hourly while awake for pulmonary hygiene Out of bed to chair as tolerated BiPAP as needed 08/08 50% Ventilator settings: Tidal volume 420, respiratory rate of 14, FiO2 of 30% and PEEP of 5. CARDIOVASCULAR: Follow hemodynamics. Titrate vasopressor to keep MAP >65 or systolic blood pressure >95mmHg NSTEMI likely type 2 from demand ischemia Trend troponins Glucose goal of 80-180 mg/dL Telemetry monitoring Drips: Luis-Synephrine drip Propofol Fentanyl LINES: PIV Pending midline GI & NUTRITION: Continue nutritional support Aspirations precautions Prokinetic agents and laxatives as needed Heart healthy KIDNEYS & ELECTROLYTES: Strict monitoring of intake and output Daily weights Avoid nephrotoxic agents Monitor electrolytes and replace as needed Goal urine output of 30mL/hr or 0.5mL/kg/hr Urine output: 700 Fluid Balance: [ ] ENDOCRINE: Maintain blood glucose between 100-180 at all times. Insulin sliding scale for blood glucose management INFECTIOUS DISEASE: Trend temperature. Max-culture if febrile. Micro: [ ] Cultures growing Gram-positive cocci2/2 Antibiotics: Silvana is allergic to vancomycin Meropenem 09/12/24 HEMATOLOGY & COAGULATION: Monitor H&H. Keep Hgb > 7 Transfuse 1 unit of PRBC for Hgb < 7 Transfuse 1 pack of platelets of platelets < 20, 000 Watch for any signs and symptoms of bleeding SKIN: Pressure ulcer prevention per facility protocol Rehab: PT/OT Prophylaxis: GI: Protonix DVT: Patient is on Eliquis 2.5 mg p.o. b.i.d. Code Status: Full Resuscitation Disposition: May downgrade to PCCU Other: Critical care time This patient required multiple bedside visits to manage the patient, review blood gases, coordinate with respiratory, nurses, talk to [Specialist] review radiology exams, talk to the family members and discuss advanced directives. I personally spent 60 minutes of critical care time in treatment of this patient. This includes patient management, time at bedside, time reviewing te sts, labs, appropriate images and studies, documentation, and patient care coordination. This time excludes separately billable procedures. ED[facility] Sep 13, 2024 11:06
--- NOTE | 2024-09-13 12:00 | HMCIMG ---
CHEST 1VW REASON: intubated COMPARISON: 09/12/2024 FINDINGS: Heart size is normal. There are perihilar infiltrates which could be edema or pneumonia. These findings appear unchanged. ET, NG and right IJ central line remain in good position. Pacemaker and previous median sternotomy are again noted. IMPRESSION: 1. Perihilar infiltrates consistent with pneumonia or edema, unchanged.
--- NOTE | 2024-09-13 12:34 | NUR ---
Robert WREN called Dr. Keller office and let them know that Dr. Bautista is recommeding a EDEN for the patient. As per Dr. Keller staff they will notified Dr. Keller in regards Dr. Bautista's recommendation.
[2024-09-13] MEDS: furoSEMIDE 20MG VIAL IV SCH (17:52)
--- NOTE | 2024-09-13 21:52 | CONS ---
DATE OF SERVICE: 09/12/2024. INFECTIOUS DISEASE CONSULTATION NOTE REQUESTING PHYSICIAN: Flor Montiel. REASON FOR CONSULTATION: Sepsis and antibiotic management. HISTORY OF PRESENT ILLNESS: This is a 63-year-old female with history of SLE, myocardial infarction, coronary artery disease, and dyslipidemia, who presented to the hospital with cough, shortness of breath and fever. T-max was 102.6. The patient found with respiratory failure, transferred to ICU as a case of status post severe sepsis. The patient has been placed on BiPAP. No documented diarrhea. No abdominal pain. The patient has been started on multiple antibiotics including linezolid and meropenem. The patient at present is encephalopathic, not able to give any history. No documented rashes or itchiness. No recent travel. PAST MEDICAL HISTORY: * SLE. * Myocardial infarction. * Coronary artery disease. * Dyslipidemia. * Hypertension. * CVA. * Diastolic heart failure. PAST SURGICAL HISTORY: * PCI. * CABG. * Cardiac catheterization. * AICD placement. * Cholecystectomy. ALLERGIES: No known drug allergy. HOME MEDICATIONS: Reviewed, include: * Linezolid. * Meropenem. * Eliquis. SOCIAL HISTORY: Lives with family. No alcohol, tobacco or illicit drug use. FAMILY HISTORY: Noncontributory. REVIEW OF SYSTEMS: Available history obtained from medical record. The patient at present encephalopathic. Not able to give good history. PHYSICAL EXAMINATION: GENERAL: Elderly female, awake, and ill looking. VITAL SIGNS: Temperature 98.8, pulse 92, respiratory rate 18, and BP 112/72. EYES: No icterus. Pupils equal and reactive. HENT: No oral thrush seen. Moist oral mucosa. NECK: Supple, no JVD or thyromegaly. LUNGS: Good air entry. Crackles bilaterally. CARDIOVASCULAR: S1, S2 regular. No murmur heard. ABDOMEN: Full, soft. Bowel sounds are present. CENTRAL NERVOUS SYSTEM: Awake, alert, and oriented x 3. No focal deficits. SKIN: No rashes, no itchiness. LYMPHATIC: No peripheral lymphadenopathy. HEMATOLOGIC: No bleeding or petechial lesions seen. MUSCULOSKELETAL: No joint swelling, erythema or tenderness. LABORATORY DATA: Sodium 127, potassium 5.0, BUN 18, and creatinine ____. WBC 20.6, hemoglobin 12.3, and platelet 193. Urinalysis negative. Influenza antigen negative. COVID antigen negative. Blood culture growing gram-positive cocci in clusters. ASSESSMENT: A 63-year-old female admitted with fever and shortness of breath. CURRENT PROBLEMS: Include: * Severe sepsis. * Gram-positive bacteremia. * Possible automatic implantable cardioverter defibrillator infection. * Vcymt-dt-zcddiql heart failure. * Hypoxic respiratory failure. * Hyponatremia. * Renal failure. * Encephalopathy. PLAN: * Continue nutritional support. * Continue linezolid. * Continue meropenem. * Continue BiPAP therapy. * Follow echocardiogram results. * Continue antiemetic. Thank you for allowing me to participate in the care of this patient. TID: [id number] RECEIPT: [id number]
[2024-09-14] VITALS (152 sets, daily range): BP systolic 71–140; BP diastolic 38–91; PULSE 65–97; RESP 4–32; TEMP 98.6–99.3; O2SAT 96–100
--- NOTE | 2024-09-14 00:02 | HMCSR ---
APPROVED REPORT EXAM: Transesophageal echocardiogram with color flow Doppler. INDICATION ICD: Bacteremia R78.81 Reason For Test : Rule out endocarditis. PROCEDURE After obtaining informed consent, patient underwent transesophageal echo in the Patient Room 215. Sedation was achieved with Propofol mcg intravenously. Transesophageal probe was inserted and advanced into esophagus without difficulty by Dr. Gillespie. EDEN was performed and images were obtained, probe was removed without complications. Throughout the procedure, the blood pressure, pulse oximetry, cardiac rhythm, and rate were monitored . The patient tolerated the procedure without adverse effects. Recovery from conscious sedation was une ventful and vital signs were stable. Left Ventricle The left ventricle is dilated. There is severe global hypokinesis of the left ventricle. Mild eccentr ic left ventricular hypertrophy. Left ventricle systolic function is severely depressed, estimated LV EF <20%. Indeterminate diastolic function. Right Ventricle The right ventricle is dilated. Right ventricular systolic function is severely depressed. There is a pacemaker lead in the right ventricle. No vegetations were seen on the pacemaker lead. Atria The left atrium size is severely dilated. There is rouleaux formation seen in the left atrium. No obv ious thrombus was seen in the left atrium. There is thrombus formation seen in the left atrial append age. The right atrium is dilated. There is a pacemaker lead in the right atrium. No vegetations were seen on the pacemaker lead. Aortic Valve Aortic valve is trileaflet. Trace aortic regurgitation. No vegetations were seen on the aortic valve. There is no aortic valvular stenosis. Mitral Valve The mitral valve is normal in structure and function. Moderate to severe mitral regurgitation. No veg etations were seen on the mitral valve. There is no mitral valve stenosis. Tricuspid Valve The tricuspid valve is normal in structure. Moderate tricuspid valve regurgitation. No vegetations we re seen on the tricuspid valve. Pulmonic Valve Pulmonic valve is not well visualized. Great Vessels The aortic root is normal in size. Pericardium No pericardial effusion. Conclusion The left atrium size is severely dilated. There is rouleaux formation seen in the left atrium. No obvious thrombus was seen in the left atrium . There is thrombus formation seen in the left atrial appendage. The right atrium is dilated. There is a pacemaker lead in the right atrium. No vegetations were seen on the pacemaker lead. The right ventricle is dilated. The left ventricle is dilated. There is a pacemaker lead in the right ventricle. No vegetations were seen on the pacemaker lead. Mild eccentric left ventricular hypertrophy. There is severe global hypokinesis of the left ventricle. Left ventricle systolic function is severely depressed, estimated LVEF <20%. Indeterminate diastolic function. Trace aortic regurgitation. No vegetations were seen on the aortic valve. Moderate to severe mitral regurgitation. No vegetations were seen on the mitral valve. Moderate tricuspid valve regurgitation. No vegetations were seen on the tricuspid valve. No pericardial effusion. The above-mentioned findings effectively rule out bacterial endocarditis.
[2024-09-14 04:04] LABS: BASOPHILS # (AUTO) 0.07 K/uL (0.00-0.20); BASOPHILS % (AUTO) 0.4 % (0.0-5.0); EOSINOPHILS # (AUTO) 0.06 K/uL (0.00-0.70); EOSINOPHILS % (AUTO) 0.3 % (0.0-8.0); HEMATOCRIT 34.5 % (36-48); IMMATURE GRANULOCYTE ABSOLUTE 0.18 K/uL (0-1); LYMPHOCYTES # (AUTO) 0.2 K/uL (1.0-4.8); LYMPHOCYTES % (AUTO) 1.1 % (21.0-51.0); MEAN CORPUSCULAR HEMOGLOBIN 32.2 pg (27.0-33.0); MEAN CORPUSCULAR HGB CONC 34.5 g/dL (32.0-36.0); MEAN CORPUSCULAR VOLUME 93.5 fL (79-99); MONOCYTES # (AUTO) 0.6 K/uL (0.1-1.0); NEUTROPHILS # (AUTO) 17.3 K/uL (1.8-7.7); NEUTROPHILS % (AUTO) 94.2 % (40.0-77.0); NUCLEATED RED BLOOD CELLS 1.1 % (0.0-0.19); PLATELET COUNT (AUTO) 233 K/uL (130-400); RED BLOOD CELL COUNT(AUTO) 3.69 MIL/uL (4.00-5.50); RED CELL DISTRIBUTION WIDTH 13.8 % (11.0-15.5); WHITE BLOOD COUNT (AUTO) 18.3 K/uL (4.8-10.8)
[2024-09-14 04:34] LABS: CREATININE 1.5 mg/dL (0.5-1.0); POTASSIUM 4.9 mmol/L (3.5-5.1)
[2024-09-14 05:05] LABS: ALBUMIN 1.7 g/dL (3.5-5.0); BILIRUBIN,TOTAL 1.6 mg/dL (0.2-1.0)
--- NOTE | 2024-09-14 06:58 | PN ---
[facility] Cardiology Progress Note CARDIOLOGY PROGRESS NOTE SEPTEMBER 14, 2024 Problems: 1. Acute on chronic systolic congestive heart failure with brain natriuretic peptide level of 2250 on admission 2. Community-acquired pneumonia and sepsis 3. Rhabdomyolysis 4. Elevated troponin consistent with type 2 supply demand mismatch in the setting of sepsis 5. Paroxysmal fibrillation 6. Chronic anticoagulation for atrial fibrillation and history of lupus anticoagulant 7. CAD status post remote aortic coronary bypass graft surgery with LV ejection fraction of 25-30% 8. [facility] Bi V PCD implant 1021 9. Dyslipidemia 10. Acute on chronic Chronic kidney disease 11. Right occipital CVA 2018 The patient remains intubated and sedated. She grew Gram-positive cocci in the blood. She has undergone transesophageal ECHO which showed no evidence of vegetations. There was [id number]-iv-szlahm mitral regurgitation. No pericardial effusion. This morning blood pressure is 100/50 heart rate is in the 60s the patient has temperature of 99[place] [address] hemoglobin 11.9 platelet count 125119. Potassium 4.9 BUN 39 creatinine 1.5. Down from 2.0 yesterday. Liver function tests are all elevated. Patient continues on Luis- Synephrine amiodarone apixaban furosemide 20 mg IV q.8 hours levothyroxine antibiotics midodrine pantoprazole potassium protocol. Telemetry shows sinus rhythm with atrial sensing and ventricular pacing. She has good breath sounds bilaterally. Plans are to continue with supportive measures. ARELI RIVERA MD Sep 14, 2024 06:58
--- NOTE | 2024-09-14 11:47 | PN ---
[facility] PROGRESS NOTE Date Patient Seen: Sep 14, 2024 Time of Visit: 11:39 Supervising Physician: Dr. Reginaldo Toribio Primary Care Physician: Geremias Everett Outpatient Specialists: [ ] Inpatient Consults: DR RIVERA PROBLEM LIST: Septic shock Acute hypoxemic respiratory failure, Post emergent intubation on 09/12/24 Acute metabolic encephalopathy Severe sepsis, POA Gram-positive bacteremia, POA 2/2 Acute on chronic systolic and diastolic heart failure, POA EF 40% in 2021 now 25-30%- EDEN negative for valve vegetation on 09/13 Suspected healthcare associated pneumonia, POA Anion gap metabolic acidosis 2/2 BLAS Rhabdomyolysis POA, resolving Elevated troponin Essential hypertension Hypokalemia Hyperlipidemia Lupus Dyslipidemia BLAS on CKD POA Bi V ICD ( [facility]) implanted in 2021 Atrial fibrillation on chronic anticoagulation Severe CAD with remote stent and CABG 7 years ago Remote Right occipital CVA in 2019 INTERVAL HISTORY: 09/14 patient is awake alert and following commands appropriately. She is very debilitated but able to move her head up and down. She has been receiving holiday sedation this morning. Continue to be off of sedation as tolerated. Also, she has been tried on SBT doing well so far, min vol 12L.. Will continue with SBT, though given weakness, not likely ready for extubation. But if stronger in the afternoon, we can do mechanics. In addition, she has anasarca so continue aggressive diuretic. Patient had EDEN done yesterday with no valve vegetation. Repeat Blood cultures. Continue zyvox and merem. Add macrolides to improve HAP coverage, given allergy to fluroquinolones. Start tube feeding. Updated her family, daughters at the bedside. REVIEW OF SYSTEMS: Unable to perform due to patient's sedated intubated. PHYSICAL EXAM: GENERAL: alert, weak, awake, following simple command. Debilitated HEENT: EOMI, Sclera non icteric, moist mucosa NECK: Supple, no JVD, trachea midline LUNGS: Diminished, breath sounds bilaterally. Wheezes to right lower lobe. HEART: Regular rate and rhythm. Normal S1 and S2, without murmurs ABD: Abdomen soft, nontender. Bowel sounds present EXT: No clubbing cyanosis or edema NEURO: Alert and oriented to person, follows commands Vital Signs (last 8hr) Date Time Temp Pulse Resp B/P (MAP) Pulse Ox O2 Delivery O2 Flow Rate FiO2 09/14/24 11:14 89 23 09/14/24 11:00 30 09/14/24 11:00 100 Ventilator+ 0 30 09/14/24 09:12 77 30 09/14/24 07:40 99.0 09/14/24 07:18 71 14 95/50 (65) 92 09/14/24 07:13 71 14 91/53 (66) 98 09/14/24 07:08 71 14 90/56 (67) 100 09/14/24 07:03 72 14 97/60 (72) 96 09/14/24 07:00 30 09/14/24 07:00 96 Ventilator+ 0 30 09/14/24 06:50 67 14 09/14/24 06:50 67 30 09/14/24 06:30 65 14 98/52 (67) 100 09/14/24 06:15 67 14 99/58 (72) 100 09/14/24 06:00 70 14 94/50 (65) 100 09/14/24 05:45 70 14 94/52 (66) 100 09/14/24 05:30 73 15 95/45 (62) 100 09/14/24 05:15 70 14 84/38 (53) 100 09/14/24 05:00 71 14 95/50 (65) 100 09/14/24 04:45 73 14 100/54 (69) 100 09/14/24 04:30 80 14 98/54 (69) 100 09/14/24 04:15 72 15 99/56 (70) 99 09/14/24 04:00 99.0 09/14/24 04:00 99.0 74 14 98/53 (68) 99 09/14/24 04:00 99 Ventilator+ 0 30 09/14/24 04:00 30 09/14/24 03:45 72 14 93/54 (67) 99 LABS: Hematology Labs: Test 09/14/24 03:53 Range/Units White Blood Count 18.3 H 4.8-10.8 K/uL Red Blood Count 3.69 L 4.00-5.50 MIL/uL Hemoglobin 11.9 L 12.0-16.0 g/dL Hematocrit 34.5 L 36-48 % Mean Corpuscular Volume 93.5 79-99 fL Mean Corpuscular Hemoglobin 32.2 27.0-33.0 pg Mean Corpuscular Hemoglobin Concent 34.5 32.0-36.0 g/dL Red Cell Distribution Width 13.8 11.0-15.5 % Platelet Count 233 # 130-400 K/uL Mean Platelet Volume 11.7 H 7.5-10.5 fL Immature Granulocyte % (Auto) 1.0 0-1 % Neutrophils (%) (Auto) 94.2 H 40.0-77.0 % Lymphocytes (%) (Auto) 1.1 L 21.0-51.0 % Monocytes (%) (Auto) 3.0 3.0-13.0 % Eosinophils (%) (Auto) 0.3 0.0-8.0 % Basophils (%) (Auto) 0.4 0.0-5.0 % Neutrophils # (Auto) 17.3 H 1.8-7.7 K/uL Lymphocytes # (Auto) 0.2 L 1.0-4.8 K/uL Monocytes # (Auto) 0.6 0.1-1.0 K/uL Eosinophils # (Auto) 0.06 0.00-0.70 K/uL Basophils # (Auto) 0.07 0.00-0.20 K/uL Absolute Immature Granulocyte (auto 0.18 0-1 K/uL Nucleated Red Blood Cells 1.1 H 0.0-0.19 % Chemistry Labs: Test 09/14/24 11:22 09/14/24 07:33 09/14/24 03:53 09/12/24 16:44 Range/Units Whole Blood Glucose 167 #H 70-110 MG/DL Lactic Acid Level 3.8 H 0.8-2.5 mmol/L Sodium Level 134 L 136-145 mmol/L Potassium Level 4.9 3.5-5.1 mmol/L Chloride Level 95 L 101-111 mmol/L Carbon Dioxide Level 30 21-32 mmol/L Blood Urea Nitrogen 39 H 7-18 mg/dL Creatinine 1.5 H 0.5-1.0 mg/dL Glomerular Filtration Rate Calc 38 >90 mL/min Random Glucose 136 H 70-105 mg/dL Total Calcium 7.5 L 8.5-10.1 mg/dL Total Bilirubin 1.6 H 0.2-1.0 mg/dL Aspartate Amino Transf (AST/SGOT) 1354 *H 10-37 U/L Alanine Aminotransferase (ALT/SGPT) 864 #*H 12-78 U/L Alkaline Phosphatase 83 50-136 U/L Total Creatine Kinase 496 *H 21-232 U/L Total Protein 5.0 L 6.0-8.3 g/dL Albumin 1.7 #L 3.5-5.0 g/dL Procalcitonin 7.82 H 0.05-0.5 ng/mL Serum Osmolality 276 L 278-305 mOsm/kg Magnesium Level 2.20 1.80-2.40 mg/dL Test 09/12/24 14:43 Range/Units Whole Blood Ketones Quantitative 0.2 0.0-0.6 mmol/L DIAGNOSTICS / RADIOLOGY RESULTS: [ ] PLAN Airway assessment and respiratory monitoring BiPAP 10/08 50% Monitor electrolytes and replace accordingly Monitor kidney function Supplemental O2 and maintain O2 sats above 92% chest x-ray in the morning Strict intake and output Fluid restriction of 1.5 L Atrovent treatments p.r.n. next item Monitor for fevers and treat aggressively Follow blood cultures Bicarb pushes p.r.n. Follow ABGs CMP q.4 hours NEURO: Minimize central acting medications as possible. Fall Precautions. Well lighted room through the day and minimize interruptions through the night to prevent acute delirium. PULMONARY: Supplemental 02 as needed Titrate Fio2 to keep Spo2 > or = 90% DuoNebs and CPT as needed IS hourly while awake for pulmonary hygiene Out of bed to chair as tolerated BiPAP as needed 08/08 50% Ventilator settings: Tidal volume 420, respiratory rate of 14, FiO2 of 30% and PEEP of 5. CARDIOVASCULAR: Follow hemodynamics. Titrate vasopressor to keep MAP >65 or systolic blood pressure >95mmHg NSTEMI likely type 2 from demand ischemia Trend troponins Glucose goal of 80-180 mg/dL Telemetry monitoring Drips: Luis-Synephrine drip Propofol Fentanyl LINES: PIV Pending midline GI & NUTRITION: Continue nutritional support Aspirations precautions Prokinetic agents and laxatives as needed Heart healthy KIDNEYS & ELECTROLYTES: Strict monitoring of intake and output Daily weights Avoid nephrotoxic agents Monitor electrolytes and replace as needed Goal urine output of 30mL/hr or 0.5mL/kg/hr Urine output: 700 Fluid Balance: [ ] ENDOCRINE: Maintain blood glucose between 100-180 at all times. Insulin sliding scale for blood glucose management INFECTIOUS DISEASE: Trend temperature. Max-culture if febrile. Micro: [ ] Cultures growing Gram-positive cocci2/2 Antibiotics: Silvana is allergic to vancomycin Meropenem 09/12/24 HEMATOLOGY & COAGULATION: Monitor H&H. Keep Hgb > 7 Transfuse 1 unit of PRBC for Hgb < 7 Transfuse 1 pack of platelets of platelets < 20, 000 Watch for any signs and symptoms of bleeding SKIN: Pressure ulcer prevention per facility protocol Rehab: PT/OT Prophylaxis: GI: Protonix DVT: Patient is on Eliquis 2.5 mg p.o. b.i.d. Code Status: Full Resuscitation Disposition: May downgrade to PCCU Other: Critical care time This patient required multiple bedside visits to manage the patient, review blood gases, coordinate with respiratory, nurses, talk to [Specialist] review r adiology exams, talk to the family members and discuss advanced directives. I personally spent 60 minutes of critical care time in treatment of this patient. This includes patient management, time at bedside, time reviewing tests, labs, appropriate images and studies, documentation, and patient care coordination. This time excludes separately billable procedures. ANNIE DARLING [facility] Sep 14, 2024 11:47
[2024-09-14] MEDS: AZITHROMYCIN 500MG+NS 250ML 250 ML IVPB SCH (12:36)
--- NOTE | 2024-09-14 12:58 | HMCIMG ---
CHEST 1VW REASON: pulmonary edema, pneumonia COMPARISON: 09/13/2024 FINDINGS: There is been interval decrease in pulmonary vascular congestion. There is mild cardiomegaly, unchanged. Tubes and lines remain in place. There is no pneumothorax or other complication. IMPRESSION: 1. Decreasing pulmonary vascular congestion.
--- NOTE | 2024-09-14 13:24 | PN ---
DATE OF SERVICE: 09/13/2024. INFECTIOUS DISEASE FOLLOWUP NOTE SUBJECTIVE: The patient is seen and examined at bedside today. The patient remained intubated on ventilatory support. Remained in ICU. A 2D echocardiogram is unremarkable. The patient is pending EDEN to be done. No documented diarrhea. The patient is on antibiotic. No rashes or itchiness. No diarrhea. PHYSICAL EXAMINATION: VITAL SIGNS: Temperature 98.7. EYES: No icterus. Pupils equal and reactive. HENT: No oral thrush seen, orally intubated, on ventilatory support. NECK: Supple, no JVD or thyromegaly. LUNGS: Good air entry. Crackles bilaterally. CARDIOVASCULAR: S1, S2 regular. No murmur heard. ABDOMEN: Full, soft. Bowel sounds present. CENTRAL NERVOUS SYSTEM: The patient is sedated. Bedbound debility. SKIN: No rashes, no itchiness. LYMPHATIC: No peripheral lymphadenopathy. BACK: No deformity, no pressure ulcer. LABORATORY DATA: WBC 17.7, hemoglobin 10.7, and platelet 167. Sodium 134, potassium 4.2, BUN 31, and creatinine 2.0. ASSESSMENT: A 63-year-old female admitted with fever and chills. CURRENT PROBLEMS: Include: * Septic shock. * Gram-positive bacteremia. * Hypoxic respiratory failure, status post intubation. * Acute renal failure. * Encephalopathy. * Elevated liver enzymes. PLAN: * Continue linezolid. * Continue meropenem. * Continue critical care support. * Continue ventilatory support. * Continue DVT prophylaxis. * Monitor electrolytes. * The patient will need EDEN. TID: [id number] RECEIPT: [id number]
--- NOTE | 2024-09-14 14:33 | NUR ---
D/C PLAN CM spoke to patient's on Dougie Anand [phone] regarding d/c planning. Patient currently vented in ICU. Reports patient was previously independent with ADLs. Denies having any home services. Reports patient has walker and cane at home. Son would assist in care if needed. CM explained possible need for short term rehab and/or rn long term care IV abx. Verbalized understanding. CM to f/u once medically stable for d/c planning. Addendum: 09/14/24 at 1435 by PARI KRUEGER CM Amended: Links added.
--- NOTE | 2024-09-14 16:33 | PN ---
INFECTIOUS DISEASE PROGRESS NOTE Date of Service: Sep 14, 2024 SUBJECTIVE: Patient was seen and examined in the ICU room 215. Patient is status post extubation today and she is awake in alert. Oxygen via humidifier mass at 10 L/min. No fever this morning, temperature is 99.0. The WBC is still remaining high at 18.3. EDEN done yesterday was negative for endocarditis but a thrombus formation was seen in the left atrial appendage. Patient is currently on Eliquis. Renal function is improving, BUN 29 and creatinine 1.5. Preliminary blood cultures growing Gram-positive cocci in clusters. We will follow up on the final cultures. Patient continues on meropenem and linezolid. PHYSICAL EXAM EYES: Anicteric. Pupils equal and reactive. HENT: No oral thrush seen, moist Oral mucosa NECK: Supple, no JVD or thyromegaly. LUNGS: Good air entry. No rales, no rhonchi. Status post extubation. Oxygen support. CARDIOVASCULAR: S1, S2 regular. No murmur heard. ABDOMEN: Soft, non tender, bowel sounds present, no organomegaly. CENTRAL NERVOUS SYSTEM: Awake, alert, oriented x 3. SKIN: No rashes, no swelling. LYMPHATICS: No peripheral lymphadenopathy. MUSCULOSKELETAL: No joint swelling, erythema or tenderness. EXTREMITIES: No cyanosis or clubbing. BACK: No deformity, no pressure ulcer. GENITOURINARY: No dysuria or hematuria. Vital Sign (Last 12 Hours) 09/14/24 09/14/24 09/14/24 09/14/24 04:45 05:00 05:15 05:30 Pulse 73 71 70 73 Resp 14 14 14 15 B/P (MAP) 100/54 (69) 95/50 (65) 84/38 (53) 95/45 (62) Pulse Ox 100 100 100 100 09/14/24 09/14/24 09/14/24 09/14/24 05:45 06:00 06:15 06:30 Pulse 70 70 67 65 Resp 14 14 14 14 B/P (MAP) 94/52 (66) 94/50 (65) 99/58 (72) 98/52 (67) Pulse Ox 100 100 100 100 09/14/24 09/14/24 09/14/24 09/14/24 06:50 06:50 07:00 07:00 Pulse 67 67 Resp 14 Pulse Ox 96 O2 Delivery Ventilator+ O2 Flow Rate 0 FiO2 30 30 30 09/14/24 09/14/24 09/14/24 09/14/24 07:03 07:08 07:13 07:18 Pulse 72 71 71 71 Resp 14 14 14 14 B/P (MAP) 97/60 (72) 90/56 (67) 91/53 (66) 95/50 (65) Pulse Ox 96 100 98 92 09/14/24 09/14/24 09/14/24 09/14/24 07:33 07:38 07:40 07:42 Temp 99.0 Pulse 74 68 68 Resp 14 14 28 B/P (MAP) 89/52 (64) 87/54 (65) 71/48 (56) Pulse Ox 97 98 100 09/14/24 09/14/24 09/14/24 09/14/24 07:44 07:48 07:53 08:03 Pulse 71 68 70 69 Resp 14 14 14 14 B/P (MAP) 78/50 (59) 76/46 (56) 78/46 (57) 81/53 (62) Pulse Ox 100 95 96 98 09/14/24 09/14/24 09/14/24 09/14/24 08:18 08:30 08:33 08:38 Pulse 69 69 74 73 Resp 14 10 B/P (MAP) 79/41 (54) 86/56 (66) 85/60 (68) Pulse Ox 100 100 100 100 09/14/24 09/14/24 09/14/24 09/14/24 08:43 08:48 08:53 08:58 Pulse 70 69 70 74 Resp 15 7 B/P (MAP) 90/57 (68) 88/59 (69) 99/57 (71) 92/55 (67) Pulse Ox 100 100 100 100 09/14/24 09/14/24 09/14/24 09/14/24 09:03 09:08 09:12 09:18 Pulse 74 70 77 69 Resp 15 14 16 B/P (MAP) 92/57 (69) 90/54 (66) 93/61 (72) Pulse Ox 99 100 100 FiO2 30 09/14/24 09/14/24 09/14/24 09/14/24 09:23 09:28 09:33 09:38 Pulse 69 72 70 70 Resp 15 15 15 16 B/P (MAP) 87/60 (69) 88/57 (67) 92/55 (67) 91/59 (70) Pulse Ox 100 98 100 99 09/14/24 09/14/24 09/14/24 09/14/24 09:43 09:48 09:53 09:58 Pulse 74 72 68 72 Resp 15 15 15 15 B/P (MAP) 90/54 (66) 86/59 (68) 87/54 (65) 89/44 (59) Pulse Ox 100 100 99 99 09/14/24 09/14/24 09/14/24 09/14/24 10:03 10:08 10:13 10:18 Pulse 72 72 70 70 Resp 15 16 15 16 B/P (MAP) 81/59 (66) 84/47 (59) 78/53 (61) 74/48 (57) Pulse Ox 99 99 100 100 09/14/24 09/14/24 09/14/24 09/14/24 10:23 10:48 11:00 11:00 Pulse 83 84 Resp 15 17 B/P (MAP) 72/55 (61) 130/80 (97) Pulse Ox 100 100 100 O2 Delivery Ventilator+ O2 Flow Rate 0 FiO2 30 30 09/14/24 09/14/24 09/14/24 09/14/24 11:03 11:14 11:18 11:33 Pulse 89 89 90 92 Resp 16 23 7 22 B/P (MAP) 128/90 (103) 140/87 (104) 104/65 (78) Pulse Ox 96 100 100 09/14/24 13:25 Pulse 90 Resp 19 O2 Flow Rate 10.0 FiO2 40 Intake & Output (last 24hrs) 09/13/24 09/13/24 09/14/24 15:00 23:00 07:00 Intake Total 558.0 ml 473.3 ml Output Total 600 ml Balance 558.0 ml -126.7 ml LABS: Laboratory: Test 09/14/24 11:22 09/14/24 07:33 09/14/24 03:53 09/13/24 04:46 Range/Units Whole Blood Glucose 167 #H 70-110 MG/DL Lactic Acid Level 3.8 H 0.8-2.5 mmol/L White Blood Count 18.3 H 4.8-10.8 K/uL Red Blood Count 3.69 L 4.00-5.50 MIL/uL Hemoglobin 11.9 L 12.0-16.0 g/dL Hematocrit 34.5 L 36-48 % Mean Corpuscular Volume 93.5 79-99 fL Mean Corpuscular Hemoglobin 32.2 27.0-33.0 pg Mean Corpuscular Hemoglobin Concent 34.5 32.0-36.0 g/dL Red Cell Distribution Width 13.8 11.0-15.5 % Platelet Count 233 # 130-400 K/uL Mean Platelet Volume 11.7 H 7.5-10.5 fL Immature Granulocyte % (Auto) 1.0 0-1 % Neutrophils (%) (Auto) 94.2 H 40.0-77.0 % Lymphocytes (%) (Auto) 1.1 L 21.0-51.0 % Monocytes (%) (Auto) 3.0 3.0-13.0 % Eosinophils (%) (Auto) 0.3 0.0-8.0 % Basophils (%) (Auto) 0.4 0.0-5.0 % Neutrophils # (Auto) 17.3 H 1.8-7.7 K/uL Lymphocytes # (Auto) 0.2 L 1.0-4.8 K/uL Monocytes # (Auto) 0.6 0.1-1.0 K/uL Eosinophils # (Auto) 0.06 0.00-0.70 K/uL Basophils # (Auto) 0.07 0.00-0.20 K/uL Absolute Immature Granulocyte (auto 0.18 0-1 K/uL Nucleated Red Blood Cells 1.1 H 0.0-0.19 % Sodium Level 134 L 136-145 mmol/L Potassium Level 4.9 3.5-5.1 mmol/L Chloride Level 95 L 101-111 mmol/L Carbon Dioxide Level 30 21-32 mmol/L Blood Urea Nitrogen 39 H 7-18 mg/dL Creatinine 1.5 H 0.5-1.0 mg/dL Glomerular Filtration Rate Calc 38 >90 mL/min Random Glucose 136 H 70-105 mg/dL Total Calcium 7.5 L 8.5-10.1 mg/dL Total Bilirubin 1.6 H 0.2-1.0 mg/dL Aspartate Amino Transf (AST/SGOT) 1354 *H 10-37 U/L Alanine Aminotransferase (ALT/SGPT) 864 #*H 12-78 U/L Alkaline Phosphatase 83 50-136 U/L Total Creatine Kinase 496 *H 21-232 U/L Total Protein 5.0 L 6.0-8.3 g/dL Albumin 1.7 #L 3.5-5.0 g/dL Procalcitonin 7.82 H 0.05-0.5 ng/mL Blood Gas Specimen Type Arterial Arterial Blood pH 7.513 H 7.350-7.450 Arterial Blood Partial Pressure CO2 33 32-45 mmHg Arterial Blood Partial Pressure O2 146.4 H 83.0-108.0 mmHg Arterial Blood HCO3 26.1 21.0-28.0 mmol/L Arterial Blood Oxygen Saturation 99.1 H 94.0-98.0 % Arterial Blood Base Excess 3.6 H -2.0-3.0 mmol/L Blood Gas Temperature 37.0 35.5-37.0 CELSIUS Blood Gas Respiration Rate 12.0 min. Blood Gas Vent Mode AC ROOM AIR FiO2 40.0 % Blood Gas Tidal Volume 420 ml Blood Gas PEEP 5 cm H2O Blood Gas Specimen Comment RN, RR Test 09/12/24 16:47 09/12/24 16:44 Range/Units Hemoglobin (Blood Gas) 11.7 L 12.0-16.0 g/dL Sodium (Blood Gas) 125 L 136-145 MMOL/L Bedside Potassium (Blood Gas) 4.8 H 3.4-4.5 MMOL/L Bedside Chloride (Blood Gas) 95 L 98-107 MMOL/L Bedside Glucose (Blood Gas) 101 H 65-95 MG/DL Bedside Ionized Calcium (Blood Gas) 0.99 L 1.15-1.33 MMOL/L Bedside Lactic Acid (Blood Gas) 7.48 *H 0.36-0.75 MMOL/L Serum Osmolality 276 L 278-305 mOsm/kg Magnesium Level 2.20 1.80-2.40 mg/dL ASSESSMENT: Hypoxic respiratory failure requiring intubation, s/p extubation. Gram-positive bacteremia status post EDEN, negative for endocarditis.. Septic shock. Acute renal failure, improving. Encephalopathy. Elevated liver enzymes. Thrombus formation in the left atrial appendage on EDEN. PLAN: Continue linezolid. Continue meropenem. Continue GI prophylaxis. We will follow up on the final cultures. Patient is currently on anticoagulation with Eliquis. Continue monitoring electrolytes. This case was reviewed and discussed with my supervising physician and the above assessment and plan was formulated and agreed upon. ATTESTATION BY PHYSICIAN I have seen and examined the patient. I reviewed the documentation, medical decision making, and treatment plan as noted by the mid-level provider above. I agree with the findings and plan of care. RODRIGO HEIN MD, [facility] Sep 14, 2024 16:33
--- NOTE | 2024-09-14 16:49 | NUR ---
SPEECH NOTE: BAG FILLER MACHINE OPERATOR coordinated with nurse Gabriel and RT Bogdan. Pt extubated today at approximately noon time. BAG FILLER MACHINE OPERATOR will follow up 24 hours post extubation for bedside swallow evaluation. All questions answered. Addendum: 09/14/[address] MARIA INES Amended: Links added.
[2024-09-14] MEDS ORDERED: PHARMACY COMMUNICATION MISC SCH (20:00)
[2024-09-14] MEDS: phenylEPHRINE HCL 100 MG in 0.9% NACL 250ML 240 ML IV PRN (20:21)
[2024-09-15] VITALS (101 sets, daily range): BP systolic 63–139; BP diastolic 35–85; PULSE 59–112; RESP 11–35; TEMP 98.8–99.3; O2SAT 93–100
[2024-09-15 04:04] LABS: BASOPHILS # (AUTO) 0.02 K/uL (0.00-0.20); BASOPHILS % (AUTO) 0.2 % (0.0-5.0); HEMATOCRIT 35.1 % (36-48); IMMATURE GRANULOCYTE ABSOLUTE 0.13 K/uL (0-1); LYMPHOCYTES # (AUTO) 0.2 K/uL (1.0-4.8); LYMPHOCYTES % (AUTO) 1.6 % (21.0-51.0); MEAN CORPUSCULAR HEMOGLOBIN 32.8 pg (27.0-33.0); MEAN CORPUSCULAR HGB CONC 33.9 g/dL (32.0-36.0); MEAN CORPUSCULAR VOLUME 96.7 fL (79-99); MONOCYTES # (AUTO) 0.6 K/uL (0.1-1.0); MONOCYTES % (AUTO) 5.5 % (3.0-13.0); NEUTROPHILS # (AUTO) 10.2 K/uL (1.8-7.7); NEUTROPHILS % (AUTO) 91.5 % (40.0-77.0); NUCLEATED RED BLOOD CELLS 4.1 % (0.0-0.19); PLATELET COUNT (AUTO) 225 K/uL (130-400); RED BLOOD CELL COUNT(AUTO) 3.63 MIL/uL (4.00-5.50); RED CELL DISTRIBUTION WIDTH 13.9 % (11.0-15.5); WHITE BLOOD COUNT (AUTO) 11.1 K/uL (4.8-10.8)
[2024-09-15 04:34] LABS: BILIRUBIN,TOTAL 1.5 mg/dL (0.2-1.0); CREATININE 1.7 mg/dL (0.5-1.0); POTASSIUM 3.1 mmol/L (3.5-5.1)
--- NOTE | 2024-09-15 07:06 | PN ---
[facility] Cardiology Progress Note CARDIOLOGY PROGRESS NOTE September Problems: 1. Acute on chronic systolic congestive heart failure with brain natriuretic peptide level of 2250 on admission 2. Community-acquired pneumonia and sepsis with staph bacteremia and no evidence of vegetations on transesophageal echo 3. Rhabdomyolysis 4. Elevated troponin consistent with type 2 supply demand mismatch in the setting of sepsis 5. Paroxysmal fibrillation 6. Chronic anticoagulation for atrial fibrillation and history of lupus anticoagulant 7. CAD status post remote aortic coronary bypass graft surgery with LV ejection fraction of 25-30% 8. [facility] Bi V PCD implant 1022 9. Dyslipidemia 10. Acute on chronic Chronic kidney disease 11. Right occipital CVA 2019 Morning blood pressure 112/60 heart rate is in the 90s. Patient remains in tubated [place] [address] [place] [id number] hemoglobin nine platelet count [id number]. Potassium 0.1 BUN 52 creatinine 0.7 Up from 39 and 1.5 yesterday. The patient continues on apixaban broad-spectrum antibiotics furosemide 20 mg IV q.8 hours levothyroxine Solu-Medrol midodrine pantoprazole and phenylephrine. The patient has been extubated. She is awake alert and f ollows commands. I would suggest reducing furosemide from 20 mg IV q.8 hours to 20 mg q.12 hours because of rising BUN and prerenal azotemia. ARELI RIVERA MD Sep 15, 2024 07:06
[2024-09-15] MEDS: furoSEMIDE 20MG VIAL IV SCH (09:00)
--- NOTE | 2024-09-15 09:23 | HMCIMG ---
CHEST 1VW REASON: pulmonary edema, pneumonia COMPARISON: 09/14/2024 FINDINGS: There are increasing perihilar infiltrates consistent with pulmonary vascular congestion. There are stable cardiomegaly. ET tube has been removed. Remaining tubes and lines are unchanged. IMPRESSION: 1. Increasing pulmonary vascular congestion.
--- NOTE | 2024-09-15 11:20 | PN ---
[facility] PROGRESS NOTE Date Patient Seen: Sep 15, 2024 Time of Visit: 11:17 Supervising Physician: Dr. Barkley Primary Care Physician: Geremias Everett Outpatient Specialists: [ ] Inpatient Consults: DR RIVERA, Dr. Bautista PROBLEM LIST: Septic shock Acute hypoxemic respiratory failure, Post emergent intubation on 09/12/24 Extubated on 09/14/24 Acute metabolic encephalopathy Severe sepsis, POA Gram-positive bacteremia, Staph Epidermidis- POA 2/2 Shock liver Acute on chronic systolic and diastolic heart failure, POA EF 40% in 2021 now 25-30%- EDEN negative for valve vegetation on 09/13 Suspected healthcare associated pneumonia, POA Anion gap metabolic acidosis 2/2 BLAS Rhabdomyolysis POA, resolving Elevated troponin Essential hypertension Hypokalemia Hyperlipidemia Lupus Dyslipidemia BLAS on CKD POA Bi V ICD ( [facility]) implanted in 2021 Atrial fibrillation on chronic anticoagulation Severe CAD with remote stent and CABG 7 years ago Remote Right occipital CVA in 2019 INTERVAL HISTORY: 09/14 patient is awake alert and following commands appropriately. She is very debilitated but able to move her head up and down. She has been receiving holiday sedation this morning. Continue to be off of sedation as tolerated. Also, she has been tried on SBT doing well so far, min vol 12L.. Will continue with SBT, though given weakness, not likely ready for extubation. But if stronger in the afternoon, we can do mechanics. In addition, she has anasarca so continue aggressive diuretic. Patient had EDEN done yesterday with no valve vegetation. Repeat Blood cultures. Continue zyvox and merem. Add macrolides to improve HAP coverage, given allergy to fluroquinolones. Start tube feeding. Updated her family, daughters at the bedside. 09/15 patient is awake alert oriented x3 , lying down at bed not in acute distress. Vital signs blood pressure 106/66 heart rate is 101 respiratory rate is 20. Patient remains on vasopressor phenylephrine. Continue to wean down as heath. Blood cultures with Staphylococcus epidermidis. Sputum cultures negative to date. WBC is down to 11 from 18. Chemistry potassium is 3.1 bicarb is 32 and her creatinine is 1.7. This is up from 1.5 yesterday. LFT total bilirubin down to 1.5 AST is 600 down from 1300 ALT 600 down from 800 as well. Procalcitonin is down to 4 from 7.8. We will continue antibiotics and follow place ID. Obtain lab in the morning. Repeat blood culture today. Otherwise continue ICU given vasopressor. REVIEW OF SYSTEMS: Unable to perform due to patient's sedated intubated. PHYSICAL EXAM: GENERAL: alert, weak, awake, following simple command. Debilitated HEENT: EOMI, Sclera non icteric, moist mucosa NECK: Supple, no JVD, trachea midline LUNGS: Diminished, breath sounds bilaterally. Wheezes to right lower lobe. HEART: Regular rate and rhythm. Normal S1 and S2, without murmurs ABD: Abdomen soft, nontender. Bowel sounds present EXT: No clubbing cyanosis or edema NEURO: Alert and oriented to person, follows commands Vital Signs (last 8hr) Date Time Temp Pulse Resp B/P (MAP) Pulse Ox O2 Delivery O2 Flow Rate FiO2 09/15/24 10:15 101 20 106/66 (79) 98 09/15/24 10:00 98 19 109/75 (86) 100 09/15/24 09:45 96 22 114/78 (90) 100 09/15/24 09:30 106 22 101/58 (72) 100 09/15/24 09:15 107 22 118/82 (94) 100 09/15/24 09:00 106 23 109/81 (90) 99 09/15/24 08:20 98 15 N/Cannula Low lpm 2.0 28 09/15/24 08:15 106 17 85/59 (68) 100 09/15/24 08:00 99.1 106 19 83/56 (65) 100 09/15/24 08:00 100 Nasal Cannula* 2 28 09/15/24 08:00 99.1 09/15/24 07:45 106 15 90/59 (69) 100 09/15/24 07:30 104 23 88/59 (69) 99 09/15/24 07:15 104 18 105/72 (83) 100 09/15/24 07:00 103 17 93/58 (70) 100 09/15/24 06:29 100 16 09/15/24 06:15 98 20 112/67 (82) 99 09/15/24 06:00 95 29 106/85 (92) 100 28 09/15/24 05:45 95 28 115/70 (85) 100 09/15/24 05:30 100 30 118/82 (94) 99 09/15/24 05:15 93 28 117/66 (83) 99 09/15/24 05:00 94 29 126/69 (88) 100 28 09/15/24 04:45 95 32 112/74 (87) 100 09/15/24 04:30 98 28 99 09/15/24 04:15 99 30 114/76 (89) 98 09/15/24 04:00 98 32 117/57 (77) 98 28 09/15/24 03:53 98 Nasal Cannula* 2 28 09/15/24 03:45 98 20 99/52 (68) 97 09/15/24 03:30 99.3 96 33 121/73 (89) 97 LABS: Hematology Labs: Test 09/15/24 03:58 Range/Units White Blood Count 11.1 H 4.8-10.8 K/uL Red Blood Count 3.63 L 4.00-5.50 MIL/uL Hemoglobin 11.9 L 12.0-16.0 g/dL Hematocrit 35.1 L 36-48 % Mean Corpuscular Volume 96.7 79-99 fL Mean Corpuscular Hemoglobin 32.8 27.0-33.0 pg Mean Corpuscular Hemoglobin Concent 33.9 32.0-36.0 g/dL Red Cell Distribution Width 13.9 11.0-15.5 % Platelet Count 225 130-400 K/uL Mean Platelet Volume 11.3 H 7.5-10.5 fL Immature Granulocyte % (Auto) 1.2 H 0-1 % Neutrophils (%) (Auto) 91.5 H 40.0-77.0 % Lymphocytes (%) (Auto) 1.6 L 21.0-51.0 % Monocytes (%) (Auto) 5.5 3.0-13.0 % Eosinophils (%) (Auto) 0.0 0.0-8.0 % Basophils (%) (Auto) 0.2 0.0-5.0 % Neutrophils # (Auto) 10.2 H 1.8-7.7 K/uL Lymphocytes # (Auto) 0.2 L 1.0-4.8 K/uL Monocytes # (Auto) 0.6 0.1-1.0 K/uL Eosinophils # (Auto) 0.00 0.00-0.70 K/uL Basophils # (Auto) 0.02 0.00-0.20 K/uL Absolute Immature Granulocyte (auto 0.13 0-1 K/uL Nucleated Red Blood Cells 4.1 H 0.0-0.19 % Chemistry Labs: Test 09/15/24 08:15 09/15/24 06:06 09/15/24 03:58 Range/Units Lactic Acid Level 3.6 H 0.8-2.5 mmol/L Whole Blood Glucose 166 H 70-110 MG/DL Sodium Level 139 136-145 mmol/L Potassium Level 3.1 L 3.5-5.1 mmol/L Chloride Level 98 L 101-111 mmol/L Carbon Dioxide Level 32 21-32 mmol/L Blood Urea Nitrogen 52 H 7-18 mg/dL Creatinine 1.7 H 0.5-1.0 mg/dL Glomerular Filtration Rate Calc 33 >90 mL/min Random Glucose 187 H 70-105 mg/dL Total Calcium 8.3 L 8.5-10.1 mg/dL Total Bilirubin 1.5 H 0.2-1.0 mg/dL Aspartate Amino Transf (AST/SGOT) 631 *H 10-37 U/L Alanine Aminotransferase (ALT/SGPT) 666 *H 12-78 U/L Alkaline Phosphatase 126 50-136 U/L Total Creatine Kinase 531 *H 21-232 U/L Total Protein 5.0 L 6.0-8.3 g/dL Albumin 2.0 L 3.5-5.0 g/dL Procalcitonin 4.84 H 0.05-0.5 ng/mL DIAGNOSTICS / RADIOLOGY RESULTS: [ ] PLAN Airway assessment and respiratory monitoring BiPAP / 50% Monitor electrolytes and replace accordingly Monitor kidney function Supplemental O2 and maintain O2 sats above 92% chest x-ray in the morning Strict intake and output Fluid restriction of 1.5 L Atrovent treatments p.r.n. next item Monitor for fevers and treat aggressively Follow blood cultures Bicarb pushes p.r.n. Follow ABGs CMP q.4 hours NEURO: Minimize central acting medications as possible. Fall Precautions. Well lighted room through the day and minimize interruptions through the night to prevent acute delirium. PULMONARY: Supplemental 02 as needed Titrate Fio2 to keep Spo2 > or = 90% DuoNebs and CPT as needed IS hourly while awake for pulmonary hygiene Out of bed to chair as tolerated BiPAP as needed 08/08 50% Ventilator settings: Tidal volume 420, respiratory rate of 14, FiO2 of 30% and PEEP of 5. CARDIOVASCULAR: Follow hemodynamics. Titrate vasopressor to keep MAP >65 or systolic blood pressure >95mmHg NSTEMI likely type 2 from demand ischemia Trend troponins Glucose goal of 80-180 mg/dL Telemetry monitoring Drips: Luis-Synephrine drip Propofol Fentanyl LINES: PIV Pending midline GI & NUTRITION: Continue nutritional support Aspirations precautions Prokinetic agents and laxatives as needed Heart healthy KIDNEYS & ELECTROLYTES: Strict monitoring of intake and output Daily weights Avoid nephrotoxic agents Monitor electrolytes and replace as needed Goal urine output of 30mL/hr or 0.5mL/kg/hr Urine output: 700 Fluid Balance: [ ] ENDOCRINE: Maintain blood glucose between 100-180 at all times. Insulin sliding scale for blood glucose management INFECTIOUS DISEASE: Trend temperature. Max-culture if febrile. Micro: [ ] Cultures growing Gram-positive cocci2/2 Antibiotics: Silvana is allergic to vancomycin Meropenem 09/12/24 HEMATOLOGY & COAGULATION: Monitor H&H. Keep Hgb > 7 Transfuse 1 unit of PRBC for Hgb < 7 Transfuse 1 pack of platelets of platelets < 20, 000 Watch for any signs and symptoms of bleeding SKIN: Pressure ulcer prevention per facility protocol Rehab: PT/OT Prophylaxis: GI: Protonix DVT: Patient is on Eliquis 2.5 mg p.o. b.i.d. Code Status: Full Resuscitation Disposition: May downgrade to PCCU Other: Critical care time This patient required multiple bedside visits to manage the patient, review blood gases, coordinate with respiratory, nurses, talk to [Specialist] review radiology exams, talk to the family members and discuss advanced directives. I personally spent 60 minutes of critical care time in treatment of this patient. This includes patient management, time at bedside, time reviewing tests, labs, appropriate images and studies, documentation, and patient care coordination. This time excludes separately billable procedures. ANNIE DARLING [facility] Sep 15, 2024 11:19
[2024-09-15] MEDS: guaiFENesin-DM 200/20MG 10ML PO PRN (13:31)
--- NOTE | 2024-09-15 13:57 | PN ---
INFECTIOUS DISEASE PROGRESS NOTE Date of Service: Sep 15, 2024 SUBJECTIVE: Patient was seen and examined in the ICU room 215. Patient is awake but not answering questions asked. Patient is currently on oxygen via nasal cannula 2 liters/minute. Tolerating NG tube feedings well with pivot 1.5. Per report patient is pending a speech therapy evaluation. Blood culture came back positive for Staphylococcus epidermidis. Patient continues on meropenem, linezolid and azithromycin. Renal function is improving, BUN 29 and creatinine 1.5. Preliminary blood cultures growing Gram-positive cocci in clusters. We will follow up on the final cultures. Patient continues on meropenem and linezolid. PHYSICAL EXAM EYES: Anicteric. Pupils equal and reactive. HENT: No oral thrush seen, moist Oral mucosa NECK: Supple, no JVD or thyromegaly. LUNGS: Good air entry. No rales, no rhonchi. Status post extubation. Oxygen support. CARDIOVASCULAR: S1, S2 regular. No murmur heard. ABDOMEN: Soft, non tender, bowel sounds present, no organomegaly. CENTRAL NERVOUS SYSTEM: Awake, alert, oriented x 3. SKIN: No rashes, no swelling. LYMPHATICS: No peripheral lymphadenopathy. MUSCULOSKELETAL: No joint swelling, erythema or tenderness. EXTREMITIES: No cyanosis or clubbing. BACK: No deformity, no pressure ulcer. GENITOURINARY: No dysuria or hematuria. Vital Sign (Last 12 Hours) 09/15/24 09/15/24 09/15/24 09/15/24 02:00 02:15 02:30 02:45 Pulse 98 95 101 96 Resp 15 30 14 30 B/P (MAP) 108/67 (81) 118/73 (88) 106/77 (87) 104/61 (75) Pulse Ox 99 100 99 99 FiO2 28 09/15/24 09/15/24 09/15/24 09/15/24 03:00 03:15 03:30 03:45 Temp 99.3 Pulse 97 107 96 98 Resp 25 13 33 20 B/P (MAP) 100/77 (85) 109/83 (92) 121/73 (89) 99/52 (68) Pulse Ox 99 98 97 97 FiO2 28 09/15/24 09/15/24 09/15/24 09/15/24 03:53 04:00 04:15 04:30 Pulse 98 99 98 Resp 32 30 28 B/P (MAP) 117/57 (77) 114/76 (89) Pulse Ox 98 98 98 99 O2 Delivery Nasal Cannula* O2 Flow Rate 2 FiO2 28 28 09/15/24 09/15/24 09/15/24 09/15/24 04:45 05:00 05:15 05:30 Pulse 95 94 93 100 Resp 32 29 28 30 B/P (MAP) 112/74 (87) 126/69 (88) 117/66 (83) 118/82 (94) Pulse Ox 100 100 99 99 FiO2 28 09/15/24 09/15/24 09/15/24 09/15/24 05:45 06:00 06:15 06:29 Pulse 95 95 98 100 Resp 28 29 20 16 B/P (MAP) 115/70 (85) 106/85 (92) 112/67 (82) Pulse Ox 100 100 99 FiO2 28 09/15/24 09/15/24 09/15/24 09/15/24 07:00 07:15 07:30 07:45 Pulse 103 104 104 106 Resp 17 18 23 15 B/P (MAP) 93/58 (70) 105/72 (83) 88/59 (69) 90/59 (69) Pulse Ox 100 100 99 100 09/15/24 09/15/24 09/15/24 09/15/24 08:00 08:00 08:00 08:15 Temp 99.1 99.1 Pulse 106 106 Resp 19 17 B/P (MAP) 83/56 (65) 85/59 (68) Pulse Ox 100 100 100 O2 Delivery Nasal Cannula* O2 Flow Rate 2 FiO2 28 09/15/24 09/15/24 09/15/24 09/15/24 08:20 09:00 09:15 09:30 Pulse 98 106 107 106 Resp 15 23 22 22 B/P (MAP) 109/81 (90) 118/82 (94) 101/58 (72) Pulse Ox 99 100 100 O2 Delivery N/Cannula Low lpm O2 Flow Rate 2.0 FiO2 28 09/15/24 09/15/24 09/15/24 09/15/24 09:45 10:00 10:15 10:30 Pulse 96 98 101 102 Resp 22 19 20 22 B/P (MAP) 114/78 (90) 109/75 (86) 106/66 (79) 104/66 (79) Pulse Ox 100 100 98 99 09/15/24 09/15/24 09/15/24 09/15/24 10:45 11:00 11:15 11:30 Pulse 102 100 103 97 Resp 20 21 23 16 B/P (MAP) 89/53 (65) 110/69 (83) 130/69 (89) Pulse Ox 99 97 91 09/15/24 09/15/24 09/15/24 09/15/24 11:30 11:45 12:00 12:00 Temp 99.0 Pulse 101 101 105 Resp 17 22 22 B/P (MAP) 128/76 (93) 120/75 (90) 117/78 (91) Pulse Ox 98 98 99 99 O2 Delivery Nasal Cannula* O2 Flow Rate 2 FiO2 28 09/15/24 09/15/24 09/15/24 09/15/24 12:00 12:15 12:30 12:45 Temp 99.0 Pulse 103 111 111 Resp 18 22 20 B/P (MAP) 100/54 (69) 89/53 (65) 87/56 (66) Pulse Ox 98 99 97 09/15/24 13:00 Pulse 112 Resp 18 B/P (MAP) 88/65 (73) Pulse Ox 100 Intake & Output (last 24hrs) 09/14/24 09/14/24 09/15/24 15:00 23:00 07:00 Intake Total 534.4 ml 529.6 ml 905.7 ml Output Total 480 ml 400 ml Balance 534.4 ml 49.6 ml 505.7 ml LABS: Laboratory: Test 09/15/24 11:44 09/15/24 08:15 09/15/24 03:58 Range/Units Whole Blood Glucose 217 H 70-110 MG/DL Lactic Acid Level 3.6 H 0.8-2.5 mmol/L White Blood Count 11.1 H 4.8-10.8 K/uL Red Blood Count 3.63 L 4.00-5.50 MIL/uL Hemoglobin 11.9 L 12.0-16.0 g/dL Hematocrit 35.1 L 36-48 % Mean Corpuscular Volume 96.7 79-99 fL Mean Corpuscular Hemoglobin 32.8 27.0-33.0 pg Mean Corpuscular Hemoglobin Concent 33.9 32.0-36.0 g/dL Red Cell Distribution Width 13.9 11.0-15.5 % Platelet Count 225 130-400 K/uL Mean Platelet Volume 11.3 H 7.5-10.5 fL Immature Granulocyte % (Auto) 1.2 H 0-1 % Neutrophils (%) (Auto) 91.5 H 40.0-77.0 % Lymphocytes (%) (Auto) 1.6 L 21.0-51.0 % Monocytes (%) (Auto) 5.5 3.0-13.0 % Eosinophils (%) (Auto) 0.0 0.0-8.0 % Basophils (%) (Auto) 0.2 0.0-5.0 % Neutrophils # (Auto) 10.2 H 1.8-7.7 K/uL Lymphocytes # (Auto) 0.2 L 1.0-4.8 K/uL Monocytes # (Auto) 0.6 0.1-1.0 K/uL Eosinophils # (Auto) 0.00 0.00-0.70 K/uL Basophils # (Auto) 0.02 0.00-0.20 K/uL Absolute Immature Granulocyte (auto 0.13 0-1 K/uL Nucleated Red Blood Cells 4.1 H 0.0-0.19 % Sodium Level 139 136-145 mmol/L Potassium Level 3.1 L 3.5-5.1 mmol/L Chloride Level 98 L 101-111 mmol/L Carbon Dioxide Level 32 21-32 mmol/L Blood Urea Nitrogen 52 H 7-18 mg/dL Creatinine 1.7 H 0.5-1.0 mg/dL Glomerular Filtration Rate Calc 33 >90 mL/min Random Glucose 187 H 70-105 mg/dL Total Calcium 8.3 L 8.5-10.1 mg/dL Total Bilirubin 1.5 H 0.2-1.0 mg/dL Aspartate Amino Transf (AST/SGOT) 631 *H 10-37 U/L Alanine Aminotransferase (ALT/SGPT) 666 *H 12-78 U/L Alkaline Phosphatase 126 50-136 U/L Total Creatine Kinase 531 *H 21-232 U/L Total Protein 5.0 L 6.0-8.3 g/dL Albumin 2.0 L 3.5-5.0 g/dL Procalcitonin 4.84 H 0.05-0.5 ng/mL ASSESSMENT: Hypoxic respiratory failure requiring intubation, s/p extubation. Staphylococcus epidermidis bacteremia s/p EDEN, negative for endocarditis.. Septic shock. Acute renal failure, improving. Encephalopathy. Elevated liver enzymes, improving. Thrombus formation in the left atrial appendage on EDEN. Hypokalemia. PLAN: Continue critical care support. Continue linezolid. Continue meropenem. Continue azithromycin. Continue GI prophylaxis. Continue oxygen support. We will follow up on the final cultures. Continues on Eliquis. Continue monitoring electrolytes. This case was reviewed and discussed with my supervising physician and the above assessment and plan was formulated and agreed upon. ATTESTATION BY PHYSICIAN I have seen and examined the patient. I reviewed the documentation, medical decision making, and treatment plan as noted by the mid-level provider above. I agree with the findings and plan of care. RODRIGO HEIN MD, [facility] Sep 15, 2024 13:57
--- NOTE | 2024-09-15 14:45 | NUR ---
BEDSIDE SWALLOW EVAL COMPLETED. Pt not appropriate for oral intake due to altered mental status and at high risk for aspiration. Solids/liquids not administered as patient not consistently following commands and seemed confused. Recommend NPO and continue NG tube feedings. Repeat swallow evaluation within 2-3 days or when status improves. SPECIAL EDUCATION PROFESSOR reviewed results and recommendations with patient and nurse. SPECIAL EDUCATION PROFESSOR educated patient/staff on risks and consequences of aspiration. Speech therapy will follow up when patient is appropriate. All questions answered. Addendum: 09/15/[address] AMRIA INES Amended: Links added.
--- NOTE | 2024-09-15 18:10 | NUR ---
CM NOTE/POC CM spoke to Dr. Bautista regarding plan of care. CM asked CM about possible activity aid IV abx. Per MD, patient not ready for d/c planning and has not made decision about antibiotics. CM to f/u.
[2024-09-15] MEDS: morPHINE 2 MG SYG IVP ONE (22:28)
[2024-09-16] VITALS (114 sets, daily range): BP systolic 60–172; BP diastolic 16–129; PULSE 66–156; RESP 10–40; TEMP 96–100; O2SAT 75–98
[2024-09-16 04:08] LABS: HEMATOCRIT 31.8 % (36-48); MEAN CORPUSCULAR HEMOGLOBIN 32.1 pg (27.0-33.0); MEAN CORPUSCULAR VOLUME 97.2 fL (79-99); NUCLEATED RED BLOOD CELLS 4.5 % (0.0-0.19); RED BLOOD CELL COUNT(AUTO) 3.27 MIL/uL (4.00-5.50); RED CELL DISTRIBUTION WIDTH 14.1 % (11.0-15.5); WHITE BLOOD COUNT (AUTO) 13.5 K/uL (4.8-10.8)
[2024-09-16 04:42] LABS: ALBUMIN 2.3 g/dL (3.5-5.0); BILIRUBIN,TOTAL 1.5 mg/dL (0.2-1.0); CREATININE 1.8 mg/dL (0.5-1.0); POTASSIUM 4.3 mmol/L (3.5-5.1); TOTAL PROTEIN, SERUM 5.2 g/dL (6.0-8.3)
--- NOTE | 2024-09-16 07:09 | PN ---
[facility] Cardiology Progress Note CARDIOLOGY PROGRESS NOTE SEPTEMBER 16, 2024 Problems: 1. Acute on chronic systolic congestive heart failure with brain natriuretic peptide level of 2250 on admission 2. Community-acquired pneumonia and sepsis with staph bacteremia and no evidence of vegetations on transesophageal echo 3. Rhabdomyolysis 4. Elevated troponin consistent with type 2 supply demand mismatch in the setting of sepsis 5. Paroxysmal fibrillation 6. Chronic anticoagulation for atrial fibrillation and history of lupus anticoagulant 7. CAD status post remote aortic coronary bypass graft surgery with LV ejection fraction of 25-30% 8. [facility] Bi V PCD implant 1022 9. Dyslipidemia 10. Acute on chronic Chronic kidney disease 11. Right occipital CVA 2018 Blood pressure is 120/80 heart rate is 100 per minute. White count 84354 h emoglobin 10.5 platelet count [id number]. Potassium 4.3 BUN 67 creatinine 1.8 with estimated GFR of 31. Baseline BUN and creatinine were 11 and 1.3. The patient continues on amiodarone apixaban antibiotics ferrous sulfate furosemide 20 mg IV q.12 hours insulin scale levothyroxine midodrine Solu-Medrol pantoprazole potassium protocol. The patient continues on CPAP support. She continues to require Luis-Synephrine. Given her rising BUN and creatinine we will hold her diuretic for 24 hours and reassess. If she is hypovolemic this may be contributing to her persistent hypotension. Liver function tests are coming down. ARELI RIVERA MD Sep 16, 2024 07:09
[2024-09-16] MEDS: Solu-medROL 40MG VIAL IVP SCH (08:30)
--- NOTE | 2024-09-16 10:08 | NUR ---
Nutritional Note: Chart, meds, and labs Reviewed. Pt s/p OPERATIONS ACCOUNTANT evaluation 09/15/24: Pt not appropriate for oral intake due to altered mental status and at high risk for aspiration. Solids/liquids not administered as patient not consistently following commands and seemed confused. Recommend NPO and continue NG tube feedings. Pt currently on trickle feeds Pivot 1.5 . Pt reported a wt loss of 34# in three months on admit. Recommend: -Pivot 1.5 -when medically feasible Start TF @20ml x 4hrs and then increase by 5ml q6hr to goal rate 40ml/hr. 24 TF total provides: 1440 kcal, 90gm/pro, and 1329total free H20/day. -150ml H2O flush q 6 or h20 flush as per MD. - Electrolyte replacements per protocol -Monitor Tf tolerance, PO advancment, wt, and labs -If No BM >3days consider bowel stimulant. - Please notify RD if additional nutrition concerns arise. SEE RD Nutritional Assessment for additional assessment information. Addendum: 09/16/24 at [address] Amended: Links added.
--- NOTE | 2024-09-16 10:44 | HMCIMG ---
CHEST 1VW REASON: pulmonary edema, pneumonia COMPARISON: 09/15/2024 FINDINGS: There is stable cardiomegaly. There is decreasing pulmonary vascular congestion. Tubes and lines are unchanged. There is no pneumothorax. IMPRESSION: 1. Postop chest with decreasing pulmonary vascular congestion.
--- NOTE | 2024-09-16 11:48 | PN ---
INFECTIOUS DISEASE PROGRESS NOTE Date of Service: Sep 16, 2024 SUBJECTIVE: Patient was seen and examined in the ICU room 209. Patient is awake but still not answering questions appropriately. Patient is currently on oxygen via nasal cannula at 3 liters/minute. Per report a bedside swallow was not able to perform due to patient not following instructions. Remains on NG tube feedings with pivot 1.5 and no reports of nausea or vomiting. No fever reported, temperature 96.1 with a WBC of 13.5. Final blood culture results came back positive for Staphylococcus epidermidis. Continues on meropenem, linezolid and azithromycin. We will follow up on the final cultures. Patient continues on meropenem and linezolid. PHYSICAL EXAM EYES: Anicteric. Pupils equal and reactive. HENT: No oral thrush seen, moist Oral mucosa NECK: Supple, no JVD or thyromegaly. LUNGS: Good air entry. No rales, no rhonchi. Status post extubation. Oxygen support. CARDIOVASCULAR: S1, S2 regular. No murmur heard. ABDOMEN: Soft, non tender, bowel sounds present, no organomegaly. CENTRAL NERVOUS SYSTEM: Awake, alert, oriented x 3. SKIN: No rashes, no swelling. LYMPHATICS: No peripheral lymphadenopathy. MUSCULOSKELETAL: No joint swelling, erythema or tenderness. EXTREMITIES: No cyanosis or clubbing. BACK: No deformity, no pressure ulcer. GENITOURINARY: No dysuria or hematuria. Vital Sign (Last 12 Hours) 09/15/24 09/16/24 09/16/24 09/16/24 23:48 00:00 00:03 00:18 Temp 98.8 Pulse 110 108 110 Resp B/P (MAP) 117/77 116/77 114/77 Pulse Ox 65 91 93 72 O2 Delivery Nasal Cannula Bi-PAP+ Nasal Cannula Nasal Cannula O2 Flow Rate 2.0 2.0 2.0 FiO2 30 09/16/24 09/16/24 09/16/24 09/16/24 00:28 00:33 00:48 01:03 Pulse 105 107 107 110 Resp B/P (MAP) 114/77 114/78 112/74 Pulse Ox 67 67 91 O2 Delivery Nasal Cannula Nasal Cannula Nasal Cannula O2 Flow Rate 2.0 2.0 2.0 FiO2 30 09/16/24 09/16/24 09/16/24 09/16/24 01:05 01:18 01:33 01:48 Pulse 109 106 107 108 Resp 29 15 24 B/P (MAP) 121/73 112/76 117/72 Pulse Ox 71 65 70 87 O2 Delivery BIPAP BIPAP BIPAP BIPAP FiO2 30 30 30 30 09/16/24 09/16/24 09/16/24 09/16/24 02:03 02:18 02:33 02:48 Pulse 106 106 108 107 Resp 27 B/P (MAP) 110/76 114/77 121/75 113/70 Pulse Ox 71 65 70 76 O2 Delivery BIPAP BIPAP BIPAP BIPAP FiO2 30 30 30 30 09/16/24 09/16/24 09/16/24 09/16/24 03:03 03:18 03:33 03:48 Pulse 106 106 110 105 Resp 11 B/P (MAP) 109/77 111/75 115/73 114/73 Pulse Ox 71 73 73 66 O2 Delivery BIPAP BIPAP BIPAP BIPAP FiO2 30 30 30 30 09/16/24 09/16/24 09/16/24 09/16/24 04:00 04:03 04:18 04:33 Temp 99.0 Pulse 108 109 105 Resp 27 B/P (MAP) 100/78 107/60 113/70 Pulse Ox 91 64 70 64 O2 Delivery Bi-PAP+ BIPAP BIPAP BIPAP FiO2 30 30 30 30 09/16/24 09/16/24 09/16/24 09/16/24 04:48 05:03 05:18 05:33 Pulse 105 106 106 108 Resp 16 10 17 B/P (MAP) 115/75 117/71 119/75 115/74 Pulse Ox 64 76 91 77 O2 Delivery BIPAP BIPAP BIPAP BIPAP FiO2 30 30 30 30 09/16/24 09/16/24 09/16/24 09/16/24 05:48 06:03 06:18 06:52 Pulse 104 104 105 104 Resp 23 B/P (MAP) 110/72 124/79 120/80 Pulse Ox 91 71 91 O2 Delivery BIPAP BIPAP BIPAP FiO2 30 30 30 30 09/16/24 09/16/24 09/16/24 09/16/24 07:00 07:03 07:15 07:30 Pulse 104 104 105 106 Resp B/P (MAP) 120/77 (91) 118/68 (85) 111/76 (88) Pulse Ox 76 67 68 09/16/24 09/16/24 09/16/24 09/16/24 07:45 08:00 08:00 08:15 Temp 96.1 Pulse 107 108 108 Resp B/P (MAP) 111/75 (87) 114/83 (93) 116/76 (89) Pulse Ox 79 79 92 81 O2 Delivery Nasal Cannula* Bi-PAP+ O2 Flow Rate 3 FiO2 N/A 09/16/24 09/16/24 09/16/24 09/16/24 08:30 08:45 09:57 11:41 Pulse 108 109 110 108 Resp B/P (MAP) 120/79 (93) 118/67 (84) Pulse Ox 77 100 O2 Delivery N/Cannula Low lpm N/Cannula Low lpm O2 Flow Rate 3.0 3.0 FiO2 32 32 Intake & Output (last 24hrs) 09/15/24 09/15/24 09/16/24 14:59 22:59 06:59 Intake Total 1031.8 ml 461.5 ml 597.5 ml Output Total 520 ml 300 ml Balance 1031.8 ml -58.5 ml 297.5 ml LABS: Laboratory: Test 09/16/24 03:56 09/16/24 03:54 09/15/24 08:15 09/15/24 03:58 Range/Units Whole Blood Glucose 152 H 70-110 MG/DL White Blood Count 13.5 H 4.8-10.8 K/uL Red Blood Count 3.27 L 4.00-5.50 MIL/uL Hemoglobin 10.5 L 12.0-16.0 g/dL Hematocrit 31.8 L 36-48 % Mean Corpuscular Volume 97.2 79-99 fL Mean Corpuscular Hemoglobin 32.1 27.0-33.0 pg Mean Corpuscular Hemoglobin Concent 33.0 32.0-36.0 g/dL Red Cell Distribution Width 14.1 11.0-15.5 % Platelet Count 195 130-400 K/uL Mean Platelet Volume 11.5 H 7.5-10.5 fL Nucleated Red Blood Cells 4.5 H 0.0-0.19 % Sodium Level 141 136-145 mmol/L Potassium Level 4.3 3.5-5.1 mmol/L Chloride Level 99 L 101-111 mmol/L Carbon Dioxide Level 27 21-32 mmol/L Blood Urea Nitrogen 67 H 7-18 mg/dL Creatinine 1.8 H 0.5-1.0 mg/dL Glomerular Filtration Rate Calc 31 >90 mL/min Random Glucose 150 H 70-105 mg/dL Total Calcium 8.4 L 8.5-10.1 mg/dL Total Bilirubin 1.5 H 0.2-1.0 mg/dL Aspartate Amino Transf (AST/SGOT) 328 H 10-37 U/L Alanine Aminotransferase (ALT/SGPT) 487 #H 12-78 U/L Alkaline Phosphatase 101 50-136 U/L Total Protein 5.2 L 6.0-8.3 g/dL Albumin 2.3 L 3.5-5.0 g/dL Lactic Acid Level 3.6 H 0.8-2.5 mmol/L Immature Granulocyte % (Auto) 1.2 H 0-1 % Neutrophils (%) (Auto) 91.5 H 40.0-77.0 % Lymphocytes (%) (Auto) 1.6 L 21.0-51.0 % Monocytes (%) (Auto) 5.5 3.0-13.0 % Eosinophils (%) (Auto) 0.0 0.0-8.0 % Basophils (%) (Auto) 0.2 0.0-5.0 % Neutrophils # (Auto) 10.2 H 1.8-7.7 K/uL Lymphocytes # (Auto) 0.2 L 1.0-4.8 K/uL Monocytes # (Auto) 0.6 0.1-1.0 K/uL Eosinophils # (Auto) 0.00 0.00-0.70 K/uL Basophils # (Auto) 0.02 0.00-0.20 K/uL Absolute Immature Granulocyte (auto 0.13 0-1 K/uL Total Creatine Kinase 531 *H 21-232 U/L Procalcitonin 4.84 H 0.05-0.5 ng/mL ASSESSMENT: Hypoxic respiratory failure requiring intubation, s/p extubation. Staphylococcus epidermidis bacteremia s/p EDEN, negative for endocarditis.. Septic shock. Acute renal failure, improving. Encephalopathy. Elevated liver enzymes, improving. Thrombus formation in the left atrial appendage on EDEN. Hypokalemia. PLAN: Continue critical care support. Continue linezolid. Continue meropenem. Continue azithromycin. Continue GI prophylaxis. Continue oxygen support. We will follow up on the final cultures. Continues on Eliquis. Continue monitoring electrolytes. This case was reviewed and discussed with my supervising physician and the above assessment and plan was formulated and agreed upon. ATTESTATION BY PHYSICIAN I have seen and examined the patient. I reviewed the documentation, medical decision making, and treatment plan as noted by the mid-level provider above. I agree with the findings and plan of care. RODRIGO HEIN MD, [facility] Sep 16, 2024 11:47
[2024-09-16] MEDS: furoSEMIDE 20MG VIAL IV STA (13:11)
[2024-09-16] MEDS: furoSEMIDE 20MG VIAL ONE (13:18)
--- NOTE | 2024-09-16 14:39 | PN ---
[facility] PROGRESS NOTE Date Patient Seen: Sep 16, 2024 Time of Visit: 14:32 Supervising Physician: Dr. Barkley Primary Care Physician: Geremias Everett Outpatient Specialists: [ ] Inpatient Consults: DR RIVERA, Dr. Bautista PROBLEM LIST: Septic shock Cardiogenic shock Acute hypoxemic respiratory failure, Post emergent intubation on 09/12/24 Extubated on 09/14/24 Acute metabolic encephalopathy Severe sepsis, POA Gram-positive bacteremia, Staph Epidermidis- POA 2/2 Shock liver Acute on chronic systolic and diastolic heart failure- reduced EF, POA EF 40% in 2021 now 25-30%- EDEN negative for valve vegetation on 09/13 Suspected healthcare associated pneumonia, POA Anion gap metabolic acidosis 2/2 BLAS Rhabdomyolysis POA, resolving Elevated troponin Essential hypertension Hypokalemia Hyperlipidemia Lupus Dyslipidemia BLAS on CKD POA Bi V ICD ( [facility] [employer]) implanted in 2021 Atrial fibrillation on chronic anticoagulation Severe CAD with remote stent and CABG 7 years ago Remote Right occipital CVA in 2018 INTERVAL HISTORY: 09/14 patient is awake alert and following commands appropriately. She is very debilitated but able to move her head up and down. She has been receiving holiday sedation this morning. Continue to be off of sedation as tolerated. Also, she has been tried on SBT doing well so far, min vol 12L.. Will continue with SBT, though given weakness, not likely ready for extubation. But if stronger in the afternoon, we can do mechanics. In addition, she has anasarca so continue aggressive diuretic. Patient had EDEN done yesterday with no valve vegetation. Repeat Blood cultures. Continue zyvox and merem. Add macrolides to improve HAP coverage, given allergy to fluroquinolones. Start tube feeding. Updated her family, daughters at the bedside. 09/15 patient is awake alert oriented x3 , lying down at bed not in acute distress. Vital signs blood pressure 106/66 heart rate is 101 respiratory rate is 20. Patient remains on vasopressor phenylephrine. Continue to wean down as heath. Blood cultures with Staphylococcus epidermidis. Sputum cultures negative to date. WBC is down to 11 from 18. Chemistry potassium is 3.1 bicarb is 32 and her creatinine is 1.7. This is up from 1.5 yesterday. LFT total bilirubin down to 1.5 AST is 600 down from 1300 ALT 600 down from 800 as well. Procalcitonin is down to 4 from 7.8. We will continue antibiotics and follow place ID. Obtain lab in the morning. Repeat blood culture today. Otherwise continue ICU given vasopressor. 09/16 patient had an episode of respiratory distress , hypoxia and tachycardia. She was then placed on BiPAP with resolution in hypoxia her vital signs otherwise this morning is with blood pressure 114/68 map of 83 respiratory rate is 22 heart rate is 110 and she has low-grade fever 100.0. Her lab this morning with sodium 141 potassium 4.3 bicarb is 27 BUN 67 this is up from 52 yesterday and creatinine is 1.8 this is up from 1.7 yesterday. Urine output is 800 cc in 24 hours his positive balance. She remains on vasopressor with Luis-Synephrine at 1.5 mcg. Patient will likely benefit from inotrope. We will start her on milrinone drip. Cardiology following up, appreciate input. REVIEW OF SYSTEMS: General: No Fever, No Chills, No Night Sweats, No Fatigue, No Malaise, No Appetite HEENT: No Head Aches, No Visual Changes, No Eye Pain, No Ear Pain, No Dysphasia, No Sinus Congestion, No Post Nasal Drip, No Sore Throat Pulmonary: No Dyspnea; No Cough, No Pleuritic Chest Pain Cardiovascular: No: Chest Pain, Palpitations, Orthopnea, Paroxysmal Noc. Dyspnea, Edema, Lt Headedness Gastrointestinal: No: Nausea, Vomiting, Abdominal Pain, Diarrhea, Constipation, Melena, Hematochezia Genitourinary: No Dysuria, No Frequency, No Incontinence, No Hematuria, No Retention Musculoskeletal: No: other, neck pain, shoulder pain, arm pain, back pain, hand pain, leg pain, foot pain Skin: No Urticaria, No Rash Neurological: No: Weakness, Numbness, Incoordination, Change in speech, Confusion, Seizures PHYSICAL EXAM: GENERAL: alert, weak, awake, following simple command. Debilitated HEENT: EOMI, Sclera non icteric, moist mucosa NECK: Supple, no JVD, trachea midline LUNGS: Diminished, breath sounds bilaterally. Wheezes to right lower lobe. HEART: Regular rate and rhythm. Normal S1 and S2, without murmurs ABD: Abdomen soft, nontender. Bowel sounds present EXT: No clubbing cyanosis or edema NEURO: Alert and oriented to person, follows commands Vital Signs (last 8hr) Date Time Temp Pulse Resp B/P (MAP) Pulse Ox O2 Delivery O2 Flow Rate FiO2 09/16/24 12:07 66 22 N/Cannula Low lpm 3.0 32 09/16/24 11:45 110 22 108/16 (46) 97 09/16/24 11:42 108 21 09/16/24 11:41 108 22 N/Cannula Low lpm 3.0 32 09/16/24 11:30 100.0 109 33 114/68 (83) 100 09/16/24 11:15 108 27 117/70 (86) 93 09/16/24 11:00 108 22 116/68 (84) 97 09/16/24 10:45 109 21 120/73 (89) 97 09/16/24 10:30 102 12 113/69 (84) 97 09/16/24 10:15 107 20 119/78 (92) 96 09/16/24 10:00 111 22 125/73 (90) 95 09/16/24 09:57 110 21 N/Cannula Low lpm 3.0 32 09/16/24 09:45 109 26 117/79 (92) 94 09/16/24 09:30 110 22 118/80 (93) 97 09/16/24 09:15 103 23 115/78 (90) 98 09/16/24 09:00 108 28 113/79 (90) 98 09/16/24 08:45 109 26 118/67 (84) 100 09/16/24 08:30 108 27 120/79 (93) 77 09/16/24 08:15 96.1 108 27 116/76 (89) 81 09/16/24 08:00 92 Nasal Cannula* 3 N/A Bi-PAP+ 09/16/24 08:00 108 27 114/83 (93) 79 09/16/24 07:45 107 25 111/75 (87) 79 09/16/24 07:30 106 25 111/76 (88) 68 09/16/24 07:15 105 24 118/68 (85) 67 09/16/24 07:03 104 21 09/16/24 07:00 104 22 120/77 (91) 76 09/16/24 06:52 104 23 30 LABS: Hematology Labs: Test 09/16/24 03:54 09/15/24 03:58 Range/Units White Blood Count 13.5 H 4.8-10.8 K/uL Red Blood Count 3.27 L 4.00-5.50 MIL/uL Hemoglobin 10.5 L 12.0-16.0 g/dL Hematocrit 31.8 L 36-48 % Mean Corpuscular Volume 97.2 79-99 fL Mean Corpuscular Hemoglobin 32.1 27.0-33.0 pg Mean Corpuscular Hemoglobin Concent 33.0 32.0-36.0 g/dL Red Cell Distribution Width 14.1 11.0-15.5 % Platelet Count 195 130-400 K/uL Mean Platelet Volume 11.5 H 7.5-10.5 fL Nucleated Red Blood Cells 4.5 H 0.0-0.19 % Immature Granulocyte % (Auto) 1.2 H 0-1 % Neutrophils (%) (Auto) 91.5 H 40.0-77.0 % Lymphocytes (%) (Auto) 1.6 L 21.0-51.0 % Monocytes (%) (Auto) 5.5 3.0-13.0 % Eosinophils (%) (Auto) 0.0 0.0-8.0 % Basophils (%) (Auto) 0.2 0.0-5.0 % Neutrophils # (Auto) 10.2 H 1.8-7.7 K/uL Lymphocytes # (Auto) 0.2 L 1.0-4.8 K/uL Monocytes # (Auto) 0.6 0.1-1.0 K/uL Eosinophils # (Auto) 0.00 0.00-0.70 K/uL Basophils # (Auto) 0.02 0.00-0.20 K/uL Absolute Immature Granulocyte (auto 0.13 0-1 K/uL Chemistry Labs: Test 09/16/24 11:40 09/16/24 03:54 09/15/24 08:15 09/15/24 03:58 Range/Units Whole Blood Glucose 152 H 70-110 MG/DL Sodium Level 141 136-145 mmol/L Potassium Level 4.3 3.5-5.1 mmol/L Chloride Level 99 L 101-111 mmol/L Carbon Dioxide Level 27 21-32 mmol/L Blood Urea Nitrogen 67 H 7-18 mg/dL Creatinine 1.8 H 0.5-1.0 mg/dL Glomerular Filtration Rate Calc 31 >90 mL/min Random Glucose 150 H 70-105 mg/dL Total Calcium 8.4 L 8.5-10.1 mg/dL Total Bilirubin 1.5 H 0.2-1.0 mg/dL Aspartate Amino Transf (AST/SGOT) 328 H 10-37 U/L Alanine Aminotransferase (ALT/SGPT) 487 #H 12-78 U/L Alkaline Phosphatase 101 50-136 U/L Total Protein 5.2 L 6.0-8.3 g/dL Albumin 2.3 L 3.5-5.0 g/dL Lactic Acid Level 3.6 H 0.8-2.5 mmol/L Total Creatine Kinase 531 *H 21-232 U/L Procalcitonin 4.84 H 0.05-0.5 ng/mL DIAGNOSTICS / RADIOLOGY RESULTS: [ ] PLAN Airway assessment and respiratory monitoring BiPAP / 50% Monitor electrolytes and replace accordingly Monitor kidney function Supplemental O2 and maintain O2 sats above 92% chest x-ray in the morning Strict intake and output Fluid restriction of 1.5 L Atrovent treatments p.r.n. next item Monitor for fevers and treat aggressively Follow blood cultures Bicarb pushes p.r.n. Follow ABGs CMP q.4 hours NEURO: Minimize central acting medications as possible. Fall Precautions. Well lighted room through the day and minimize interruptions through the night to prevent acute delirium. PULMONARY: Supplemental 02 as needed Titrate Fio2 to keep Spo2 > or = 90% DuoNebs and CPT as needed IS hourly while awake for pulmonary hygiene Out of bed to chair as tolerated BiPAP as needed 08/08 50% CARDIOVASCULAR: Follow hemodynamics. Titrate vasopressor to keep MAP >65 or systolic blood pressure >95mmHg NSTEMI likely type 2 from demand ischemia Trend troponins Glucose goal of 80-180 mg/dL Telemetry monitoring Drips: Luis-Synephrine drip Milrinone 09/16 LINES: PIV Pending midline GI & NUTRITION: Continue nutritional support Aspirations precautions Prokinetic agents and laxatives as needed Heart healthy KIDNEYS & ELECTROLYTES: Strict monitoring of intake and output Daily weights Avoid nephrotoxic agents Monitor electrolytes and replace as needed Goal urine output of 30mL/hr or 0.5mL/kg/hr ENDOCRINE: Maintain blood glucose between 100-180 at all times. Insulin sliding scale for blood glucose management INFECTIOUS DISEASE: Trend temperature. Max-culture if febrile. Micro: Cultures growing Gram-positive cocci2/2 Antibiotics: Silvana is allergic to vancomycin Meropenem 09/12/24 HEMATOLOGY & COAGULATION: Monitor H&H. Keep Hgb > 7 Transfuse 1 unit of PRBC for Hgb < 7 Transfuse 1 pack of platelets of platelets < 20, 000 Watch for any signs and symptoms of bleeding SKIN: Pressure ulcer prevention per facility protocol Rehab: PT/OT Prophylaxis: GI: Protonix DVT: Patient is on Eliquis 2.5 mg p.o. b.i.d. Code Status: Full Resuscitation Disposition: ICU Other: Critical care time 74 min This patient required multiple bedside visits to manage the patient, review blood gases, coordinate with respiratory, nurses, talk to [Specialist] review radiology exams, talk to the family members and discuss advanced directives. I personally spent 74 minutes of critical care time in treatment of this patient. This includes patient management, time at bedside, time reviewing tests, labs, appropriate images and studies, documentation, and patient care coordination. This time excludes separately billable procedures. ANNIE DARLING [facility] Sep 16, 2024 14:39
[2024-09-16] MEDS: furoSEMIDE 20MG VIAL IV ONE (15:14)
[2024-09-16] MEDS: MILRINONE-D5W 20 MG/100 ML 100 ML IV SCH (15:34)
[2024-09-16] MEDS: IpraTROPium 0.5 MG/2.5 ML INH IH PRN (15:39)
[2024-09-16] MEDS: NOREPINEPHRINE 16MG/NS 250ML 250 ML IV ONE (16:11)
--- NOTE | 2024-09-16 16:41 | HMCIMG ---
US VENOUS DOPPLER UNILATERAL REASON: left arm swealling COMPARISON: None Technique: Left upper extremity venous doppler ultrasound was performed with spectral analysis and color flow imaging technique. FINDINGS: There is normal appearance of the left subclavian and the left axillary artery. There is diffuse edema in the remainder of the arm. The brachial, cephalic and basilic veins were not separately identified and may be compressed. There is no sonographic evidence of venous thrombosis. IMPRESSION: 1. Marked soft tissue swelling, this brachial, cephalic and basilic veins were not separately identified and may be compressed.
[2024-09-16] MEDS: ketaMINE 50MG/ML SYRINGE 50 MG/ML DISP.SYRIN IV STA (16:47)
[2024-09-16] MEDS: hydroCORTisone SOD SUCCINATE 100 MG/2 ML VIAL ONE (16:47)
[2024-09-16] MEDS: ketaMINE 50MG/ML SYRINGE 50 MG/ML DISP.SYRIN ONE (16:49)
--- NOTE | 2024-09-16 17:08 | HMCIMG ---
CHEST 1VW HISTORY: Post intubation COMPARISON: 09/16/2024 FINDINGS: A frontal projection of the chest was obtained. Bilateral pulmonary infiltrates are seen with left more than right. Endotracheal tube is seen with distal tip at 1.6 cm above reg. The heart is borderline enlarged. All the lines and tubes are again seen in place. No evidence of aortic calcification is seen. IMPRESSION: 1. Bilateral pulmonary infiltrates with left more than right. There may be left pleural effusion. Endotracheal tube is seen with distal tip at 1.6 cm above reg.
--- NOTE | 2024-09-16 17:10 | PN ---
[facility] PROGRESS NOTE Date Patient Seen: Sep 16, 2024 Time of Visit: 17:08 Supervising Physician: Dr. Barkley Primary Care Physician: Geremias Everett Outpatient Specialists: [ ] Inpatient Consults: DR RIVERA, Dr. Bautista PROBLEM LIST: Septic shock Cardiogenic shock Acute hypoxemic respiratory failure, Post emergent intubation on 09/12/24 Extubated on 09/14/24 Reintubated 09/16/24 Acute metabolic encephalopathy Severe sepsis, POA Gram-positive bacteremia, Staph Epidermidis- POA 2/2 Shock liver Acute on chronic systolic and diastolic heart failure- reduced EF, POA EF 40% in 2021 now 25-30%- EDEN negative for valve vegetation on 09/13 Suspected healthcare associated pneumonia, POA Anion gap metabolic acidosis 2/2 BLAS Rhabdomyolysis POA, resolving Elevated troponin Essential hypertension Hypokalemia Hyperlipidemia Lupus Dyslipidemia BLAS on CKD POA Bi V ICD ( [facility]) implanted in 2021 Atrial fibrillation on chronic anticoagulation Severe CAD with remote stent and CABG 7 years ago Remote Right occipital CVA in 2018 INTERVAL HISTORY: 09/14 patient is awake alert and following commands appropriately. She is very debilitated but able to move her head up and down. She has been receiving holiday sedation this morning. Continue to be off of sedation as tolerated. Also, she has been tried on SBT doing well so far, min vol 12L.. Will continue with SBT, though given weakness, not likely ready for extubation. But if stronger in the afternoon, we can do mechanics. In addition, she has anasarca so continue aggressive diuretic. Patient had EDEN done yesterday with no valve vegetation. Repeat Blood cultures. Continue zyvox and merem. Add macrolides to improve HAP coverage, given allergy to fluroquinolones. Start tube feeding. Updated her family, daughters at the bedside. 09/15 patient is awake alert oriented x3 , lying down at bed not in acute distress. Vital signs blood pressure 106/66 heart rate is 101 respiratory rate is 20. Patient remains on vasopressor phenylephrine. Continue to wean down as heath. Blood cultures with Staphylococcus epidermidis. Sputum cultures negative to date. WBC is down to 11 from 18. Chemistry potassium is 3.1 bicarb is 32 and her creatinine is 1.7. This is up from 1.5 yesterday. LFT total bilirubin down to 1.5 AST is 600 down from 1300 ALT 600 down from 800 as well. Procalcitonin is down to 4 from 7.8. We will continue antibiotics and follow place ID. Obtain lab in the morning. Repeat blood culture today. Otherwise continue ICU given vasopressor. 09/16 patient had an episode of respiratory distress , hypoxia and tachycardia. She was then placed on BiPAP with resolution in hypoxia her vital signs o therwise this morning is with blood pressure 114/68 map of 83 respiratory rate is 22 heart rate is 110 and she has low-grade fever 100.0. Her lab this morning with sodium 141 potassium 4.3 bicarb is 27 BUN 67 this is up from 52 yesterday and creatinine is 1.8 this is up from 1.7 yesterday. Urine output is 800 cc in 24 hours his positive balance. She remains on vasopressor with Luis-Synephrine at 1.5 mcg. Patient will likely benefit from inotrope. We will start her on milrinone drip. Cardiology following up, appreciate input. Subsequent encounter on 09/16 Patient is decompensating was placed on BiPAP given hypoxia but she also is tachypneic and tachycardic with low blood pressure. She did not tolerated milrinone drip. Vasopressor with phenylephrine at maximum dose. Adding levophed. We decided to go ahead and intubate the patient at this time. Sedation was using ketamine and tatiana. Will keep patient intubated and sedated for today. ABGs, CXR. Discussed with patient's family members of current condition. Additional 45 minutes of critical care time spent in direct patient management, including stabilization of life-threatening organ failure, reviewing labs and images, multiple visits with patient and nursing staff and discussion with consultants and family and formulating a plan. REVIEW OF SYSTEMS: General: No Fever, No Chills, No Night Sweats, No Fatigue, No Malaise, No Appetite HEENT: No Head Aches, No Visual Changes, No Eye Pain, No Ear Pain, No Dysphasia, No Sinus Congestion, No Post Nasal Drip, No Sore Throat Pulmonary: No Dyspnea; No Cough, No Pleuritic Chest Pain Cardiovascular: No: Chest Pain, Palpitations, Orthopnea, Paroxysmal Noc. Dyspnea, Edema, Lt Headedness Gastrointestinal: No: Nausea, Vomiting, Abdominal Pain, Diarrhea, Constipation, Melena, Hematochezia Genitourinary: No Dysuria, No Frequency, No Incontinence, No Hematuria, No Retention Musculoskeletal: No: other, neck pain, shoulder pain, arm pain, back pain, hand pain, leg pain, foot pain Skin: No Urticaria, No Rash Neurological: No: Weakness, Numbness, Incoordination, Change in speech, Confusion, Seizures PHYSICAL EXAM: GENERAL: alert, weak, awake, following simple command. Debilitated HEENT: EOMI, Sclera non icteric, moist mucosa NECK: Supple, no JVD, trachea midline LUNGS: Diminished, breath sounds bilaterally. Wheezes to right lower lobe. HEART: Regular rate and rhythm. Normal S1 and S2, without murmurs ABD: Abdomen soft, nontender. Bowel sounds present EXT: No clubbing cyanosis or edema NEURO: Alert and oriented to person, follows commands Vital Signs (last 8hr) Date Time Temp Pulse Resp B/P (MAP) Pulse Ox O2 Delivery O2 Flow Rate FiO2 09/16/24 16:11 105/62 09/16/24 15:32 125 23 65 09/16/24 12:07 66 22 N/Cannula Low lpm 3.0 32 09/16/24 11:45 110 22 108/16 (46) 97 09/16/24 11:42 108 21 09/16/24 11:41 108 22 N/Cannula Low lpm 3.0 32 09/16/24 11:30 100.0 109 33 114/68 (83) 100 09/16/24 11:15 108 27 117/70 (86) 93 09/16/24 11:00 108 22 116/68 (84) 97 09/16/24 10:45 109 21 120/73 (89) 97 09/16/24 10:30 102 12 113/69 (84) 97 09/16/24 10:15 107 20 119/78 (92) 96 09/16/24 10:00 111 22 125/73 (90) 95 09/16/24 09:57 110 21 N/Cannula Low lpm 3.0 32 09/16/24 09:45 109 26 117/79 (92) 94 09/16/24 09:30 110 22 118/80 (93) 97 09/16/24 09:15 103 23 115/78 (90) 98 LABS: Hematology Labs: Test 09/16/24 03:54 09/15/24 03:58 Range/Units White Blood Count 13.5 H 4.8-10.8 K/uL Red Blood Count 3.27 L 4.00-5.50 MIL/uL Hemoglobin 10.5 L 12.0-16.0 g/dL Hematocrit 31.8 L 36-48 % Mean Corpuscular Volume 97.2 79-99 fL Mean Corpuscular Hemoglobin 32.1 27.0-33.0 pg Mean Corpuscular Hemoglobin Concent 33.0 32.0-36.0 g/dL Red Cell Distribution Width 14.1 11.0-15.5 % Platelet Count 195 130-400 K/uL Mean Platelet Volume 11.5 H 7.5-10.5 fL Nucleated Red Blood Cells 4.5 H 0.0-0.19 % Immature Granulocyte % (Auto) 1.2 H 0-1 % Neutrophils (%) (Auto) 91.5 H 40.0-77.0 % Lymphocytes (%) (Auto) 1.6 L 21.0-51.0 % Monocytes (%) (Auto) 5.5 3.0-13.0 % Eosinophils (%) (Auto) 0.0 0.0-8.0 % Basophils (%) (Auto) 0.2 0.0-5.0 % Neutrophils # (Auto) 10.2 H 1.8-7.7 K/uL Lymphocytes # (Auto) 0.2 L 1.0-4.8 K/uL Monocytes # (Auto) 0.6 0.1-1.0 K/uL Eosinophils # (Auto) 0.00 0.00-0.70 K/uL Basophils # (Auto) 0.02 0.00-0.20 K/uL Absolute Immature Granulocyte (auto 0.13 0-1 K/uL Chemistry Labs: Test 09/16/24 11:40 09/16/24 03:54 09/15/24 08:15 09/15/24 03:58 Range/Units Whole Blood Glucose 152 H 70-110 MG/DL Sodium Level 141 136-145 mmol/L Potassium Level 4.3 3.5-5.1 mmol/L Chloride Level 99 L 101-111 mmol/L Carbon Dioxide Level 27 21-32 mmol/L Blood Urea Nitrogen 67 H 7-18 mg/dL Creatinine 1.8 H 0.5-1.0 mg/dL Glomerular Filtration Rate Calc 31 >90 mL/min Random Glucose 150 H 70-105 mg/dL Total Calcium 8.4 L 8.5-10.1 mg/dL Total Bilirubin 1.5 H 0.2-1.0 mg/dL Aspartate Amino Transf (AST/SGOT) 328 H 10-37 U/L Alanine Aminotransferase (ALT/SGPT) 487 #H 12-78 U/L Alkaline Phosphatase 101 50-136 U/L Total Protein 5.2 L 6.0-8.3 g/dL Albumin 2.3 L 3.5-5.0 g/dL Lactic Acid Level 3.6 H 0.8-2.5 mmol/L Total Creatine Kinase 531 *H 21-232 U/L Procalcitonin 4.84 H 0.05-0.5 ng/mL DIAGNOSTICS / RADIOLOGY RESULTS: [ ] PLAN Airway assessment and respiratory monitoring BiPAP 12/6 50% Monitor electrolytes and replace accordingly Monitor kidney function Supplemental O2 and maintain O2 sats above 92% chest x-ray in the morning Strict intake and output Fluid restriction of 1.5 L Atrovent treatments p.r.n. next item Monitor for fevers and treat aggressively Follow blood cultures Bicarb pushes p.r.n. Follow ABGs CMP q.4 hours NEURO: Minimize central acting medications as possible. Fall Precautions. Well lighted room through the day and minimize interruptions through the night to prevent acute delirium. PULMONARY: Supplemental 02 as needed Titrate Fio2 to keep Spo2 > or = 90% DuoNebs and CPT as needed IS hourly while awake for pulmonary hygiene Out of bed to chair as tolerated BiPAP as needed 08/08 50% CARDIOVASCULAR: Follow hemodynamics. Titrate vasopressor to keep MAP >65 or systolic blood pressure >95mmHg NSTEMI likely type 2 from demand ischemia Trend troponins Glucose goal of 80-180 mg/dL Telemetry monitoring Drips: Luis-Synephrine drip Milrinone 09/16 LINES: PIV Pending midline GI & NUTRITION: Continue nutritional support Aspirations precautions Prokinetic agents and laxatives as needed Heart healthy KIDNEYS & ELECTROLYTES: Strict monitoring of intake and output Daily weights Avoid nephrotoxic agents Monitor electrolytes and replace as needed Goal urine output of 30mL/hr or 0.5mL/kg/hr ENDOCRINE: Maintain blood glucose between 100-180 at all times. Insulin sliding scale for blood glucose management INFECTIOUS DISEASE: Trend temperature. Max-culture if febrile. Micro: Cultures growing Gram-positive cocci2/2 Antibiotics: Silvana is allergic to vancomycin Meropenem 09/12/24 HEMATOLOGY & COAGULATION: Monitor H&H. Keep Hgb > 7 Transfuse 1 unit of PRBC for Hgb < 7 Transfuse 1 pack of platelets of platelets < 20, 000 Watch for any signs and symptoms of bleeding SKIN: Pressure ulcer prevention per facility protocol Rehab: PT/OT Prophylaxis: GI: Protonix DVT: Patient is on Eliquis 2.5 mg p.o. b.i.d. Code Status: Full Resuscitation Disposition: ICU Other: Critical care time 45 min This patient required multiple bedside visits to manage the patient, review blood gases, coordinate with respiratory, nurses, talk to [Specialist] review radiology exams, talk to the family members and discuss advanced directives. I personally spent 45 minutes of critical care time in treatment of this patient. This includes patient management, time at bedside, time reviewing tests, labs, appropriate images and studies, documentation, and patient care coordination. This time excludes separately billable procedures. ANNIE DARLING [facility] Sep 16, 2024 17:10
[2024-09-16] MEDS: FENTanyl 1000MCG+NS 100ML 100 ML IV SCH (17:14)
[2024-09-16] MEDS: MIDAZOLAM 100MG-0.9% NS 100ML 100ML BAG IV ONE (17:15)
--- NOTE | 2024-09-16 17:33 | PRN ---
[facility] Procedure Note-[facility]ube [facility] Pulmonary [facility] Critical Care Service Procedure Note DATE OF PROCEDURE: INDICATION: [Acute respiratory failure] Procedure performed: -Endotracheal intubation. Indication for procedure: -Acute respiratory failure. Pre-procedure checklist: -Informed consent obtained. -Time out per hospital policy. Medications used: -Etomidate 20 mg IV -Succinylcholine 100 mg IV Description of procedure: Hand hygiene was performed. Patient was sedated with IV Etomidate and paralyzed with IV Succinylcholine. A 7.5 endotracheal tube was inserted through the vocal cords on the first attempt using direct laryngoscopy with Mac blade size 4, grade 1 view. Tube secured at 23 cm at lip level. Bilateral breath sounds a uscultated. Positive end-tidal CO2 capnography. Patient maintained 100% SpO2 during the entire procedure. Procedure completed without complications. Post- procedure chest x-ray showed proper placement of endotracheal tube. Procedure was performed by Dr. Tomy Barkley with myself assisting. Time spent performing the procedure is independent of the time spent planning and coordinating the patient's care. SANJAY GONZALEZ Sep 16, 2024 17:33
[2024-09-16] MEDS: AMIOdarone 900MG VIAL 150 MG in DEXTROSE 5%-WATER 100 ML IV SCH (17:52)
[2024-09-16] MEDS: VASOpressin 20 UNITS/ML 1ML Vi 40 UNITS in 0.9%NACL 50ML 40 ML IV PRN (18:06)
[2024-09-16] MEDS: AMIOdarone 900MG VIAL 360 MG in DEXTROSE 5%-WATER 200 ML IV SCH (18:11)
[2024-09-16 18:34] LABS: ABG BASE EXCESS -14.1 mmol/L (-2.0-3.0); ABG OXYGEN SATURATION 96.6 % (94.0-98.0); ABG PCO2 29 mmHg (32-45); ABG PH 7.235 (7.350-7.450); CARBON MONOXIDE 0.2 % (0.5-1.5); HHb 3.4; PO2, ARTERIAL BG 110.2 mmHg (83.0-108.0); VENT MODE, BG AC (ROOM AIR)
--- NOTE | 2024-09-16 18:42 | PRN ---
Procedure performed: 1. Arterial line insertion. 2. Intraoperative Ultrasound Site: Right Radial artery Diagnosis: Hypoxic respiratory failure Cardiogenic shock Description of procedure: Consent waived, procedure performed emergently. Hand hygiene. Time out done. Chlorhexidine was used to prepare the skin. Intraoperative US was used to localize vascular structure and intra-arterial access of guidewire. Arterial line inserted with Seldinger technique on site specified above. Line secured at the hub. Patient tolerated procedure well. No immediate complications. Post note: Difficult access due to shock state, attempted several times including via femoral arteries. ANNIE DARLING [facility] Sep 16, 2024 18:42
[2024-09-16] MEDS: SODIUM BICARB 50MEQ 50ML VIAL IV ONE (19:47)
--- NOTE | 2024-09-16 20:21 | NUR ---
DNR PATIENT MADE DO NOT RESUSCITATE PER FAMILY REQUEST. ALL FAMILY PRESENT. ALL QUESTIONS ANSWERED. PATIENT DNR AND PASTORAL SERVICES REQUESTED PER FAMILY.
[2024-09-16 20:34] LABS: CREATININE 2.5 mg/dL (0.5-1.0); POTASSIUM 4.7 mmol/L (3.5-5.1)
--- NOTE | 2024-09-16 20:54 | NUR ---
[facility] NOTIFIED RANCH RIDER TA CRITICAL LAB RESULT BUN 82, LACTIC ACID 18.9 AND PATIENT DNR. NO NEW ORDERS.
[2024-09-16] MEDS: furoSEMIDE 40MG VIAL IV SCH (20:59)
[2024-09-17] VITALS (49 sets, daily range): BP systolic 70–116; BP diastolic 55–72; PULSE 82–187; RESP 13–22; TEMP 99.7–101.5; O2SAT 90–98
[2024-09-17 01:23] LABS: ABG BASE EXCESS -16.2 mmol/L (-2.0-3.0); ABG HCO3 10.8 mmol/L (21.0-28.0); ABG PCO2 30 mmHg (32-45); ABG PH 7.176 (7.350-7.450); CARBON MONOXIDE 0.1 % (0.5-1.5); PO2, ARTERIAL BG 146.6 mmHg (83.0-108.0); VENT MODE, BG AC (ROOM AIR)
[2024-09-17] MEDS: NOREPINEPHRINE 16MG/NS 250ML PREMIX IV SCH (01:24)
[2024-09-17] MEDS: 0.9% NACL 250ML 250 ML IV ONE (01:33)
[2024-09-17] MEDS: AMIOdarone 900MG VIAL 540 MG in DEXTROSE 5%-WATER 300 ML IV SCH (01:34)
--- NOTE | 2024-09-17 01:35 | NUR ---
LACTIC ACID NOTIFIED METAL ALLOY SCIENTIST B[facility]CHMARK OF ELEVATED LACTIC ACID. PER METAL ALLOY SCIENTIST GIVE 250 ML 0.9 NS BOLUS OVER 1HR AND ABG STAT
[2024-09-17] MEDS: SODIUM BICARB 50MEQ 50ML VIAL IV ONE (02:14)
[2024-09-17 04:40] LABS: BASOPHILS # (AUTO) 0.03 K/uL (0.00-0.20); BASOPHILS % (AUTO) 0.1 % (0.0-5.0); HEMATOCRIT 35.4 % (36-48); LYMPHOCYTES # (AUTO) 0.1 K/uL (1.0-4.8); LYMPHOCYTES % (AUTO) 0.6 % (21.0-51.0); MEAN CORPUSCULAR HEMOGLOBIN 32.4 pg (27.0-33.0); MEAN CORPUSCULAR HGB CONC 31.1 g/dL (32.0-36.0); MEAN CORPUSCULAR VOLUME 104.4 fL (79-99); NEUTROPHILS # (AUTO) 18.6 K/uL (1.8-7.7); NEUTROPHILS % (AUTO) 92.8 % (40.0-77.0); NUCLEATED RED BLOOD CELLS 7.1 % (0.0-0.19); PLATELET COUNT (AUTO) 125 K/uL (130-400); RED BLOOD CELL COUNT(AUTO) 3.39 MIL/uL (4.00-5.50)
[2024-09-17 05:10] LABS: B-TYPE NATRIURETIC PEPTIDE > 5000 pg/mL (0-100)
[2024-09-17 05:32] LABS: MAN.DIFF COMMENT-IMPRESSION MANUAL DIFFERENTIAL; MONOCYTES % (MANUAL) 5 % (2-9); SEGMENTED NEUTROPHILS % 95 % (40-70); TOTAL CELLS COUNTED 100
[2024-09-17] MEDS: acetaMINOPHEN 325 MG/10.15ML UDCUP PO PRN (05:52)
--- NOTE | 2024-09-17 07:07 | PN ---
[facility] Cardiology Progress Note CARDIOLOGY PROGRESS NOTE SEPTEMBER 17, 2024 Problems: 1. Acute on chronic systolic congestive heart failure with brain natriuretic peptide level of 2250 on admission 2. Community-acquired pneumonia and sepsis with staph bacteremia and no evidence of vegetations on transesophageal echo 3. Rhabdomyolysis 4. Elevated troponin consistent with type 2 supply demand mismatch in the setting of sepsis 5. Paroxysmal fibrillation 6. Chronic anticoagulation for atrial fibrillation and history of lupus anticoagulant 7. CAD status post remote aortic coronary bypass graft surgery with LV ejection fraction of 25-30% 8. [facility] Bi V PCD implant 1021 9. Dyslipidemia 10. Acute on chronic Chronic kidney disease 11. Right occipital CVA 2018 12. Thrombocytopenia Blood pressure has been running around 85 systolic. Heart rate has gone up to 140. [place] 275[address]. Hemoglobin 11.0 platelet count [id number]. Down from [id number]. Potassium 4.7 sodium has gone up to 149 BUN 82 creatinine 2.5. Telemetry shows sinus tachycardia versus atrial flutter. The patient has been started on an amiodarone drip and multiple additional pressors were added overnight. The patient continues on amiodarone 100 mg daily apixaban furosemide insulin scale levothyroxine midodrine pantoprazole norepinephrine phenylephrine and vasopressin. Over the past 24 hours the patient's condition has deteriorated. White count is rising and she is requiring additional pressors. Despite holding diuretics, renal insufficiency is worsening. The patient has clearly taken a turn for the worse and is in septic shock. I have had a discussion with family members this morning and at this point they are leaning towards withdrawing care. Her prognosis at this point is grim and I would agree with this if this is their final decision. ARELI RIVERA MD Sep 17, 2024 07:07
--- NOTE | 2024-09-17 07:23 | NUR ---
DR. NICOLE RICO AT BEDSIDE SPOKE WITH FAMILY. PATIENT SEEN
--- NOTE | 2024-09-17 07:47 | EKG ---
[facility] Test Date: 2024-09-17 Test Time: 04:07:23 Pat Name: RICK PALUMBO Department: 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
--- NOTE | 2024-09-17 07:54 | NUR ---
NURSING NOTES DR. RIVERA IN ROOM TALKING TO FAMILY, MD UPDATED FAMILY REGARDING GRIM PROGNOSIS, FAMILY IS THINKING OF WITHDRAWING CARE, FAMILY WAITING FOR ANOTHER FAMILY MEMBER TO ARRIVE AND THEY WILL MAKE DECISION, FOR NOW FAMILY IS REFUSING ANY MORE LAB DRAWS. WILL GET WITHDRAWAL OF CARE FORM SIGNED WHEN FAMILY MAKES THE DECISION.
--- NOTE | 2024-09-17 09:58 | HMCIMG ---
CHEST 1VW REASON: pulmonary edema, pneumonia COMPARISON: 09/16/2024 FINDINGS: There is mild cardiomegaly. There are perihilar infiltrates which are unchanged. Tubes and lines remain in place. There is no pneumothorax or other complication. IMPRESSION: 1. No change.
[2024-09-17] MEDS ORDERED: morPHINE 2 MG SYG IVP PRN (10:00)
[2024-09-17] MEDS ORDERED: ondanSETRON 4MG INJ IVP PRN (10:00)
[2024-09-17] MEDS ORDERED: morPHINE 4 MG SYG IVP PRN (10:00)
--- NOTE | 2024-09-17 10:00 | HMCIMG ---
US VENOUS DOPPLER BILATERAL REASON: SWOLLEN UPPER EXTREMITIES COMPARISON: None Technique: Bilateral upper extremity venous doppler ultrasound was performed with spectral analysis and color flow imaging technique. FINDINGS: Bilateral upper extremity venous ultrasound was performed. Right arm shows a small hematoma in the antecubital area measuring 4.1 x 5.6 cm. Right cephalic vein was collapsed and not well visualized. There is no evidence of thrombus on the right, including normal appearance of the subclavian, axillary, brachial and basilic veins. Left side shows the cephalic vein collapsed and not well visualized. The basilic vein also was not well visualized. There is no evidence of deep venous thrombosis. Subclavian, axillary and brachial veins appear unremarkable. IMPRESSION: 1. No evidence of deep venous thrombosis in either upper extremity.
[2024-09-17] MEDS: morPHINE 2 MG SYG IVP PRN (10:32)
[2024-09-17] MEDS: LORazepam 2 MG/ML 1 ML VIAL IVP PRN (10:32)
--- NOTE | 2024-09-17 10:43 | NUR ---
NURSING NOTES POA HAS SIGNED WITHDRAWAL OF CARE FORM, CRITICAL CARE CERTIFIED WELDING INSPECTOR FRIST NOTIFIED REGARDING FAMILY'S DECISION TO WITHDRAW CARE, RECEIVED ORDERS TO PROCEED WITH WITHDRAWAL OF CARE, PREMEDICATED PT WITH MORPHINE AND ATIVAN, PROCEEDED WITH EXTUBATION, PLACED ON 2LNC, STOPPED ALL VASOPRESSORS, PT APPEARS COMFORTABLE, FAMILY AT BEDSIDE.
--- NOTE | 2024-09-17 11:20 | NUR ---
TIME OF CARDIAC TIME OF IS 1117, TACK COVERER NOTIFIED.
--- NOTE | 2024-09-17 13:37 | NUR ---
NURSING NOTES PT DENIED FOR ORGAN, TISSUE AND EYE. OK TO RELEASE BODY TO HOME. [facility] STAFF SPOKE TO WAS MELE. REF# [id number]. POST MORTEM CARE DONE AND SENT BODY TO [facility].
--- NOTE | 2024-09-17 15:39 | PN ---
[facility] PROGRESS NOTE Date Patient Seen: Sep 17, 2024 Time of Visit: 08:30 Supervising Physician: Dr. Barkley Primary Care Physician: Geremias Everett Outpatient Specialists: [ ] Inpatient Consults: DR RIVERA, Dr. Bautista PROBLEM LIST: Septic shock Cardiogenic shock Acute hypoxemic respiratory failure, Post emergent intubation on 09/12/24 Extubated on 09/14/24 Reintubated 09/16/24 Acute high anion gap metabolic acidosis Acute metabolic encephalopathy Severe sepsis, POA Gram-positive bacteremia, Staph Epidermidis- POA 2/2 Shock liver Acute on chronic systolic and diastolic heart failure- reduced EF, POA EF 40% in 2021 now 25-30%- EDEN negative for valve vegetation on 09/13 Suspected healthcare associated pneumonia, POA Anion gap metabolic acidosis 2/2 BLAS Rhabdomyolysis POA, resolving Elevated troponin Essential hypertension Hypokalemia Hyperlipidemia Lupus Dyslipidemia BLAS on CKD POA Bi V ICD ( [facility]) implanted in 2021 Atrial fibrillation on chronic anticoagulation Severe CAD with remote stent and CABG 7 years ago Remote Right occipital CVA in 2018 INTERVAL HISTORY: 09/14 patient is awake alert and following commands appropriately. She is very debilitated but able to move her head up and down. She has been receiving holiday sedation this morning. Continue to be off of sedation as tolerated. Also, she has been tried on SBT doing well so far, min vol 12L.. Will continue with SBT, though given weakness, not likely ready for extubation. But if stronger in the afternoon, we can do mechanics. In addition, she has anasarca so continue aggressive diuretic. Patient had EDEN done yesterday with no valve vegetation. Repeat Blood cultures. Continue zyvox and merem. Add macrolides to improve HAP coverage, given allergy to fluroquinolones. Start tube feeding. Updated her family, daughters at the bedside. 09/15 patient is awake alert oriented x3 , lying down at bed not in acute di stress. Vital signs blood pressure 106/66 heart rate is 101 respiratory rate is 20. Patient remains on vasopressor phenylephrine. Continue to wean down as heath. Blood cultures with Staphylococcus epidermidis. Sputum cultures negative to date. WBC is down to 11 from 18. Chemistry potassium is 3.1 bicarb is 32 and her creatinine is 1.7. This is up from 1.5 yesterday. LFT total bilirubin down to 1.5 AST is 600 down from 1300 ALT 600 down from 800 as well. Procalcitonin is down to 4 from 7.8. We will continue antibiotics and follow place ID. Obtain lab in the morning. Repeat blood culture today. Otherwise continue ICU given vasopressor. 09/16 patient had an episode of respiratory distress , hypoxia and tachycardia. She was then placed on BiPAP with resolution in hypoxia her vital signs otherwise this morning is with blood pressure 114/68 map of 83 respiratory rate is 22 heart rate is 110 and she has low-grade fever 100.0. Her lab this morning with sodium 141 potassium 4.3 bicarb is 27 BUN 67 this is up from 52 yesterday and creatinine is 1.8 this is up from 1.7 yesterday. Urine output is 800 cc in 24 hours his positive balance. She remains on vasopressor with Luis-Synephrine at 1.5 mcg. Patient will likely benefit from inotrope. We will start her on milrinone drip. Cardiology following up, appreciate input. Subsequent encounter on 09/16 Patient is decompensating was placed on BiPAP given hypoxia but she also is tachypneic and tachycardic with low blood pressure. She did not tolerated milrinone drip. Vasopressor with phenylephrine at maximum dose. Adding levophed. We decided to go ahead and intubate the patient at this time. Sedation was using ketamine and tatiana. Will keep patient intubated and sedated for today. ABGs, CXR. Discussed with patient's family members of current condition. Additional 45 minutes of critical care time spent in direct patient management, including stabilization of life-threatening organ failure, reviewing labs and images, multiple visits with patient and nursing staff and discussion with consultants and family and formulating a plan. 09/17 patient remains intubated on ACVC 22/360/5/50%, ABG this morning with pH 7.17, pCO2 30, PO2 146, bicarb of 10.8 and O2 sat is 98%. Base excess is -16. Patient is with metabolic acidosis has been given sodium bicarbonate pushes. We will start patient on bicarb drip. At this time patient remains vaso plegic on three vasopressors. We will continue to wean as tolerated to keep map greater than 65. We have placed art line for hemodynamic monitoring. Otherwise her lactic acid is worsening now at 17, patient with worsening renal function now creatinine is 2.5 BUN 82 she is oliguric, urine output is only 180 cc in 24 hours. Likely patient will need renal replacement therapy but with this current condition she will be able tolerate any renal replacement therapy. In add ition, She has worsening liver failure as well this is from shock liver from hypotension. We will keep blood pressure and map greater than 65. Overall prognosis is poor and worsening, unlikely patient will survive this. REVIEW OF SYSTEMS: General: No Fever, No Chills, No Night Sweats, No Fatigue, No Malaise, No Appetite HEENT: No Head Aches, No Visual Changes, No Eye Pain, No Ear Pain, No Dysphasia, No Sinus Congestion, No Post Nasal Drip, No Sore Throat Pulmonary: No Dyspnea; No Cough, No Pleuritic Chest Pain Cardiovascular: No: Chest Pain, Palpitations, Orthopnea, Paroxysmal Noc. Dyspnea, Edema, Lt Headedness Gastrointestinal: No: Nausea, Vomiting, Abdominal Pain, Diarrhea, Constipation, Melena, Hematochezia Genitourinary: No Dysuria, No Frequency, No Incontinence, No Hematuria, No Retention Musculoskeletal: No: other, neck pain, shoulder pain, arm pain, back pain, hand pain, leg pain, foot pain Skin: No Urticaria, No Rash Neurological: No: Weakness, Numbness, Incoordination, Change in speech, Confusion, Seizures PHYSICAL EXAM: GENERAL: alert, weak, awake, following simple command. Debilitated HEENT: EOMI, Sclera non icteric, moist mucosa NECK: Supple, no JVD, trachea midline LUNGS: Diminished, breath sounds bilaterally. Wheezes to right lower lobe. HEART: Regular rate and rhythm. Normal S1 and S2, without murmurs ABD: Abdomen soft, nontender. Bowel sounds present EXT: No clubbing cyanosis or edema NEURO: Alert and oriented to person, follows commands Vital Signs (last 8hr) Date Time Temp Pulse Resp B/P (MAP) Pulse Ox O2 Delivery O2 Flow Rate FiO2 09/17/24 11:48 09/17/24 10:50 13 59 Nasal Cannula 2.0 09/17/24 10:45 15 09/17/24 10:35 15 63 Nasal Cannula 09/17/24 10:30 16 54 09/17/24 10:30 16 54 09/17/24 10:20 138 18 71/56 Nasal Cannula 2.0 09/17/24 10:15 138 18 71/56 Ventilator 50 09/17/24 10:15 138 18 71/56 (61) 09/17/24 10:00 138 18 71/56 09/17/24 10:00 138 18 71/56 (61) 09/17/24 09:54 139 50 09/17/24 09:45 139 18 72/56 (61) 09/17/24 09:45 139 18 72/56 Ventilator 50 09/17/24 09:30 138 18 71/56 09/17/24 09:30 138 18 71/56 (61) 09/17/24 09:15 139 18 71/56 Ventilator 50 09/17/24 09:15 139 18 71/56 (61) 09/17/24 09:00 139 18 70/55 (60) 09/17/24 09:00 139 18 70/55 09/17/24 08:45 139 18 72/56 Ventilator 50 09/17/24 08:45 139 18 72/56 (61) 09/17/24 08:30 139 18 72/56 09/17/24 08:30 139 18 72/56 (61) 09/17/24 08:15 101.5 140 18 73/57 Ventilator 50 09/17/24 08:15 140 18 73/57 (62) 09/17/24 08:00 140 18 73/57 09/17/24 08:00 140 18 73/57 (62) 09/17/24 08:00 Ventilator+ 50 09/17/24 07:45 140 18 73/57 (62) 09/17/24 07:45 140 18 73/57 Ventilator 50 LABS: Hematology Labs: Test 09/17/24 04:28 Range/Units White Blood Count 20.0 H 4.8-10.8 K/uL Red Blood Count 3.39 L 4.00-5.50 MIL/uL Hemoglobin 11.0 L 12.0-16.0 g/dL Hematocrit 35.4 L 36-48 % Mean Corpuscular Volume 104.4 H 79-99 fL Mean Corpuscular Hemoglobin 32.4 27.0-33.0 pg Mean Corpuscular Hemoglobin Concent 31.1 L 32.0-36.0 g/dL Red Cell Distribution Width 15.0 11.0-15.5 % Platelet Count 125 #L 130-400 K/uL Mean Platelet Volume 12.0 H 7.5-10.5 fL Immature Granulocyte % (Auto) 1.5 H 0-1 % Neutrophils (%) (Auto) 92.8 H 40.0-77.0 % Lymphocytes (%) (Auto) 0.6 L 21.0-51.0 % Monocytes (%) (Auto) 5.0 3.0-13.0 % Eosinophils (%) (Auto) 0.0 0.0-8.0 % Basophils (%) (Auto) 0.1 0.0-5.0 % Neutrophils # (Auto) 18.6 H 1.8-7.7 K/uL Lymphocytes # (Auto) 0.1 L 1.0-4.8 K/uL Monocytes # (Auto) 1.0 0.1-1.0 K/uL Eosinophils # (Auto) 0.00 0.00-0.70 K/uL Basophils # (Auto) 0.03 0.00-0.20 K/uL Absolute Immature Granulocyte (auto 0.30 0-1 K/uL Segmented Neutrophils % 95 H 40-70 % Monocytes % (Manual) 5 2-9 % Nucleated Red Blood Cells 7.1 H 0.0-0.19 % Differential Comment MANUAL DIFFERENTIAL White Cell Morphology Comment Platelet Morphology Comment See comments Red Blood Cell Morphology See comments Chemistry Labs: Test 09/17/24 04:28 09/16/24 23:52 09/16/24 20:15 09/16/24 11:40 Range/Units B-Type Natriuretic Peptide > 5000 H 0-100 pg/mL Procalcitonin 3.68 H 0.05-0.5 ng/mL Lactic Acid Level 19.6 H 0.8-2.5 mmol/L Sodium Level 149 H 136-145 mmol/L Potassium Level 4.7 3.5-5.1 mmol/L Chloride Level 103 101-111 mmol/L Carbon Dioxide Level 24 21-32 mmol/L Blood Urea Nitrogen 82 *H 7-18 mg/dL Creatinine 2.5 H 0.5-1.0 mg/dL Glomerular Filtration Rate Calc 21 >90 mL/min Random Glucose 118 H 70-105 mg/dL Total Calcium 7.8 L 8.5-10.1 mg/dL Whole Blood Glucose 152 H 70-110 MG/DL Test 09/16/24 03:54 Range/Units Total Bilirubin 1.5 H 0.2-1.0 mg/dL Aspartate Amino Transf (AST/SGOT) 328 H 10-37 U/L Alanine Aminotransferase (ALT/SGPT) 487 #H 12-78 U/L Alkaline Phosphatase 101 50-136 U/L Total Protein 5.2 L 6.0-8.3 g/dL Albumin 2.3 L 3.5-5.0 g/dL DIAGNOSTICS / RADIOLOGY RESULTS: [ ] PLAN Airway assessment and respiratory monitoring Monitor electrolytes and replace accordingly Monitor kidney function Mechanical ventilator chest x-ray in the morning Strict intake and output Fluid restriction of 1.5 L Atrovent treatments p.r.n. next item Monitor for fevers and treat aggressively Follow blood cultures Bicarb pushes p.r.n. Follow ABGs CMP q.4 hours NEURO: Minimize central acting medications as possible. Fall Precautions. Well lighted room through the day and minimize interruptions through the night to prevent acute delirium. PULMONARY: Supplemental 02 as needed Titrate Fio2 to keep Spo2 > or = 90% DuoNebs and CPT as needed IS hourly while awake for pulmonary hygiene Mechanical ventilator management CARDIOVASCULAR: Follow hemodynamics. Titrate vasopressor to keep MAP >65 or systolic blood pressure >95mmHg NSTEMI likely type 2 from demand ischemia Trend troponins Glucose goal of 80-180 mg/dL Telemetry monitoring Drips: Luis-Synephrine drip Milrinone 09/16 LINES: Right PICC LINE Right radial artery arterial line GI & NUTRITION: Continue nutritional support Aspirations precautions Prokinetic agents and laxatives as needed Heart healthy KIDNEYS & ELECTROLYTES: Strict monitoring of intake and output Daily weights Avoid nephrotoxic agents Monitor electrolytes and replace as needed Goal urine output of 30mL/hr or 0.5mL/kg/hr ENDOCRINE: Maintain blood glucose between 100-180 at all times. Insulin sliding scale for blood glucose management INFECTIOUS DISEASE: Trend temperature. Max-culture if febrile. Micro: Cultures growing Gram-positive cocci2/2 Antibiotics: Silvana is allergic to vancomycin Meropenem 09/12/24 HEMATOLOGY & COAGULATION: Monitor H&H. Keep Hgb > 7 Transfuse 1 unit of PRBC for Hgb < 7 Transfuse 1 pack of platelets of platelets < 20, 000 Watch for any signs and symptoms of bleeding SKIN: Pressure ulcer prevention per facility protocol Rehab: PT/OT Prophylaxis: GI: Protonix DVT: Patient is on Eliquis 2.5 mg p.o. b.i.d. Code Status: Full Resuscitation Disposition: ICU Other: Critical care time 74 min This patient required multiple bedside visits to manage the patient, review blood gases, coordinate with respiratory, nurses, talk to [Specialist] review radiology exams, talk to the family members and discuss advanced directives. I personally spent 74 minutes of critical care time in treatment of this patient. This includes patient management, time at bedside, time reviewing tests, labs, appropriate images and studies, documentation, and patient care coordination. This time excludes separately billable procedures. ANNIE DARLING [facility] Sep 17, 2024 15:39
--- NOTE | 2024-09-17 15:47 | PN ---
[facility] PROGRESS NOTE Date Patient Seen: Sep 17, 2024 Time of Visit: 09:44 Supervising Physician: Tomy Mike Primary Care Physician: Geremias Everett Outpatient Specialists: [ ] Inpatient Consults: DR RIVERA, Dr. Bautista PROBLEM LIST: Septic shock Cardiogenic shock Acute hypoxemic respiratory failure, Post emergent intubation on 09/12/24 Extubated on 09/14/24 Reintubated 09/16/24 Acute high anion gap metabolic acidosis Acute metabolic encephalopathy Severe sepsis, POA Gram-positive bacteremia, Staph Epidermidis- POA 2/2 Shock liver Acute on chronic systolic and diastolic heart failure- reduced EF, POA EF 40% in 2021 now 25-30%- EDEN negative for valve vegetation on 09/13 Suspected healthcare associated pneumonia, POA Anion gap metabolic acidosis 2/2 BLAS Rhabdomyolysis POA, resolving Elevated troponin Essential hypertension Hypokalemia Hyperlipidemia Lupus Dyslipidemia BLAS on CKD POA Bi V ICD ( [facility]) implanted in 2021 Atrial fibrillation on chronic anticoagulation Severe CAD with remote stent and CABG 7 years ago Remote Right occipital CVA in 2018 INTERVAL HISTORY: 09/17 patient remains intubated on ACVC 22/360/5/50%, ABG this morning with pH 7.17, pCO2 30, PO2 146, bicarb of 10.8 and O2 sat is 98%. Base excess is -16. Patient is with metabolic acidosis has been given sodium bicarbonate pushes. We will start patient on bicarb drip. At this time patient remains vaso plegic on three vasopressors. We will continue to wean as tolerated to keep map greater than 65. We have placed art line for hemodynamic monitoring. Otherwise her lactic acid is worsening now at 17, patient with worsening renal function now creatinine is 2.5 BUN 82 she is oliguric, urine output is only 180 cc in 24 hours. Likely patient will need renal replacement therapy but with this current condition she will be able tolerate any renal replacement therapy. In addition, She has worsening liver failure as well this is from shock liver from hypotension. We will keep blood pressure and map greater than 65. Overall prognosis is poor and worsening, unlikely patient will survive this. Subsequent encounter on 09/17 Patient remains very acidotic, remains on mechanical ventilator with worsening lactic acidosis and renal function. We discussed patient's current condition to patient's family members including daughters and son. Goal of this conversation was to discuss goals of care. I discussed regarding what advanced directives in detail and what advanced care planning entails. We also discussed CODE STATUS. I informed patient's family that in the case of cardiopulmonary demise, resuscitation efforts including chest compressions and intubations do not lead to ideal post resuscitative outcomes. We discussed patient's particular disease processes and how this could be potentially impacting the patient's outcome in the event of a cardiopulmonary arrest. All questions related to resuscitation, CODE STATUS, advanced directives were answered in detail. Patient's family wishes to not receive resuscitated measures such as CPR. We will change CODE STATUS to DO NOT INTUBATE and DO NOT RESUSCITATE. After all, patient's family had requested for a withdrawal of care given very grim prognosis. We will support family decision for withdrawal of care. Offered swimming pool service technician support if needed. We will compassionately extubate her when family is ready with pre med anxiolytic and opiate for comfort. Over 35 minutes of extra critical care time spent in direct patient management, including stabilization of life-threatening organ failure, reviewing labs and images, multiple visits with patient and nursing staff and discussion with consultants and family and formulating a plan. REVIEW OF SYSTEMS: General: No Fever, No Chills, No Night Sweats, No Fatigue, No Malaise, No Appetite HEENT: No Head Aches, No Visual Changes, No Eye Pain, No Ear Pain, No Dysphasia, No Sinus Congestion, No Post Nasal Drip, No Sore Throat Pulmonary: No Dyspnea; No Cough, No Pleuritic Chest Pain Cardiovascular: No: Chest Pain, Palpitations, Orthopnea, Paroxysmal Noc. Dyspnea, Edema, Lt Headedness Gastrointestinal: No: Nausea, Vomiting, Abdominal Pain, Diarrhea, Constipation, Melena, Hematochezia Genitourinary: No Dysuria, No Frequency, No Incontinence, No Hematuria, No Retention Musculoskeletal: No: other, neck pain, shoulder pain, arm pain, back pain, hand pain, leg pain, foot pain Skin: No Urticaria, No Rash Neurological: No: Weakness, Numbness, Incoordination, Change in speech, Confusion, Seizures PHYSICAL EXAM: GENERAL: alert, weak, awake, following simple command. Debilitated HEENT: EOMI, Sclera non icteric, moist mucosa NECK: Supple, no JVD, trachea midline LUNGS: Diminished, breath sounds bilaterally. Wheezes to right lower lobe. HEART: Regular rate and rhythm. Normal S1 and S2, without murmurs ABD: Abdomen soft, nontender. Bowel sounds present EXT: No clubbing cyanosis or edema NEURO: Alert and oriented to person, follows commands Vital Signs (last 8hr) Date Time Temp Pulse Resp B/P (MAP) Pulse Ox O2 Delivery O2 Flow Rate FiO2 09/17/24 11:48 09/17/24 10:50 13 59 Nasal Cannula 2.0 09/17/24 10:45 15 09/17/24 10:35 15 63 Nasal Cannula 09/17/24 10:30 16 54 09/17/24 10:30 16 54 09/17/24 10:20 138 18 71/56 Nasal Cannula 2.0 09/17/24 10:15 138 18 71/56 Ventilator 50 09/17/24 10:15 138 18 71/56 (61) 09/17/24 10:00 138 18 71/56 09/17/24 10:00 138 18 71/56 (61) 09/17/24 09:54 139 50 09/17/24 09:45 139 18 72/56 (61) 09/17/24 09:45 139 18 72/56 Ventilator 50 09/17/24 09:30 138 18 71/56 09/17/24 09:30 138 18 71/56 (61) 09/17/24 09:15 139 18 71/56 Ventilator 50 09/17/24 09:15 139 18 71/56 (61) 09/17/24 09:00 139 18 70/55 (60) 09/17/24 09:00 139 18 70/55 09/17/24 08:45 139 18 72/56 Ventilator 50 09/17/24 08:45 139 18 72/56 (61) 09/17/24 08:30 139 18 72/56 09/17/24 08:30 139 18 72/56 (61) 09/17/24 08:15 101.5 140 18 73/57 Ventilator 50 09/17/24 08:15 140 18 73/57 (62) 09/17/24 08:00 140 18 73/57 09/17/24 08:00 140 18 73/57 (62) 09/17/24 08:00 Ventilator+ 50 09/17/24 07:45 140 18 73/57 (62) 09/17/24 07:45 140 18 73/57 Ventilator 50 LABS: Hematology Labs: Test 09/17/24 04:28 Range/Units White Blood Count 20.0 H 4.8-10.8 K/uL Red Blood Count 3.39 L 4.00-5.50 MIL/uL Hemoglobin 11.0 L 12.0-16.0 g/dL Hematocrit 35.4 L 36-48 % Mean Corpuscular Volume 104.4 H 79-99 fL Mean Corpuscular Hemoglobin 32.4 27.0-33.0 pg Mean Corpuscular Hemoglobin Concent 31.1 L 32.0-36.0 g/dL Red Cell Distribution Width 15.0 11.0-15.5 % Platelet Count 125 #L 130-400 K/uL Mean Platelet Volume 12.0 H 7.5-10.5 fL Immature Granulocyte % (Auto) 1.5 H 0-1 % Neutrophils (%) (Auto) 92.8 H 40.0-77.0 % Lymphocytes (%) (Auto) 0.6 L 21.0-51.0 % Monocytes (%) (Auto) 5.0 3.0-13.0 % Eosinophils (%) (Auto) 0.0 0.0-8.0 % Basophils (%) (Auto) 0.1 0.0-5.0 % Neutrophils # (Auto) 18.6 H 1.8-7.7 K/uL Lymphocytes # (Auto) 0.1 L 1.0-4.8 K/uL Monocytes # (Auto) 1.0 0.1-1.0 K/uL Eosinophils # (Auto) 0.00 0.00-0.70 K/uL Basophils # (Auto) 0.03 0.00-0.20 K/uL Absolute Immature Granulocyte (auto 0.30 0-1 K/uL Segmented Neutrophils % 95 H 40-70 % Monocytes % (Manual) 5 2-9 % Nucleated Red Blood Cells 7.1 H 0.0-0.19 % Differential Comment MANUAL DIFFERENTIAL White Cell Morphology Comment Platelet Morphology Comment See comments Red Blood Cell Morphology See comments Chemistry Labs: Test 09/17/24 04:28 09/16/24 23:52 09/16/24 20:15 09/16/24 11:40 Range/Units B-Type Natriuretic Peptide > 5000 H 0-100 pg/mL Procalcitonin 3.68 H 0.05-0.5 ng/mL Lactic Acid Level 19.6 H 0.8-2.5 mmol/L Sodium Level 149 H 136-145 mmol/L Potassium Level 4.7 3.5-5.1 mmol/L Chloride Level 103 101-111 mmol/L Carbon Dioxide Level 24 21-32 mmol/L Blood Urea Nitrogen 82 *H 7-18 mg/dL Creatinine 2.5 H 0.5-1.0 mg/dL Glomerular Filtration Rate Calc 21 >90 mL/min Random Glucose 118 H 70-105 mg/dL Total Calcium 7.8 L 8.5-10.1 mg/dL Whole Blood Glucose 152 H 70-110 MG/DL Test 09/16/24 03:54 Range/Units Total Bilirubin 1.5 H 0.2-1.0 mg/dL Aspartate Amino Transf (AST/SGOT) 328 H 10-37 U/L Alanine Aminotransferase (ALT/SGPT) 487 #H 12-78 U/L Alkaline Phosphatase 101 50-136 U/L Total Protein 5.2 L 6.0-8.3 g/dL Albumin 2.3 L 3.5-5.0 g/dL DIAGNOSTICS / RADIOLOGY RESULTS: [ ] PLAN compassionate care NEURO: Minimize central acting medications as possible. Fall Precautions. Well lighted room through the day and minimize interruptions through the night to prevent acute delirium. PULMONARY: Supplemental 02 as needed Titrate Fio2 to keep Spo2 > or = 90% DuoNebs and CPT as needed IS hourly while awake for pulmonary hygiene Mechanical ventilator management CARDIOVASCULAR: Follow hemodynamics. Titrate vasopressor to keep MAP >65 or systolic blood pressure >95mmHg NSTEMI likely type 2 from demand ischemia Trend troponins Glucose goal of 80-180 mg/dL Telemetry monitoring Drips: Luis-Synephrine drip Milrinone 09/16 LINES: Right PICC LINE Right radial artery arterial line GI & NUTRITION: Continue nutritional support Aspirations precautions Prokinetic agents and laxatives as needed Heart healthy KIDNEYS & ELECTROLYTES: Strict monitoring of intake and output Daily weights Avoid nephrotoxic agents Monitor electrolytes and replace as needed Goal urine output of 30mL/hr or 0.5mL/kg/hr ENDOCRINE: Maintain blood glucose between 100-180 at all times. Insulin sliding scale for blood glucose management INFECTIOUS DISEASE: Trend temperature. Max-culture if febrile. Micro: Cultures growing Gram-positive cocci2/2 Antibiotics: Silvana is allergic to vancomycin Meropenem 09/12/24 HEMATOLOGY & COAGULATION: Monitor H&H. Keep Hgb > 7 Transfuse 1 unit of PRBC for Hgb < 7 Transfuse 1 pack of platelets of platelets < 20, 000 Watch for any signs and symptoms of bleeding SKIN: Pressure ulcer prevention per facility protocol Rehab: PT/OT Prophylaxis: GI: Protonix DVT: Patient is on Eliquis 2.5 mg p.o. b.i.d. Code Status: DNR Disposition: ICU Other: Critical care time 45 min This patient required multiple bedside visits to manage the patient, review bl ood gases, coordinate with respiratory, nurses, talk to [Specialist] review radiology exams, talk to the family members and discuss advanced directives. I personally spent 45 minutes of critical care time in treatment of this patient. This includes patient management, time at bedside, time reviewing tests, labs, appropriate images and studies, documentation, and patient care coordination. This time excludes separately billable procedures. ANNIE DARLING [facility] Sep 17, 2024 15:47
--- NOTE | 2024-09-17 15:48 | DS ---
[facility] DISCHARGE/ SUMMARY Date Patient Seen: Sep 17, 2024 Time of Visit: 11:47 Supervising Physician: Tomy Mike Primary Care Physician: Geremias Everett Outpatient Specialists: NILESH Inpatient Consults: Dr. Keller, Dr. Bautista, Dr. Glaser PROBLEM LIST at Admission Acute hypoxic respiratory failure, POA Severe sepsis, POA Gram-positive bacteremia, POA 2/2 Acute on chronic systolic and diastolic heart failure, POA EF 40% in 2021 now 25-30% Suspected healthcare associated pneumonia, POA Rhabdomyolysis Elevated troponin Essential hypertension Hypokalemia Hyperlipidemia Lupus Dyslipidemia BLSA on CKD POA Bi V ICD ( [facility]) implanted in 2021 Atrial fibrillation on chronic anticoagulation Severe CAD with remote stent and CABG 7 years ago Remote Right occipital CVA in 2019 Diagnosis at Discharge Septic shock with end organ damage: Kidney, liver, respiratory, and cardiovascular Cardiogenic shock Acute hypoxemic respiratory failure, Post emergent intubation on 09/12/24 Extubated on 09/14/24 Reintubated 09/16/24 Acute high anion gap metabolic acidosis Acute metabolic encephalopathy Severe sepsis, POA Gram-positive bacteremia, Staph Epidermidis- POA 2/2 Shock liver Acute on chronic systolic and diastolic heart failure- reduced EF, POA EF 40% in 2021 now 25-30%- EDEN negative for valve vegetation on 09/13 Suspected healthcare associated pneumonia, POA Anion gap metabolic acidosis 2/2 BLAS Rhabdomyolysis POA, resolving Elevated troponin Essential hypertension Hypokalemia Hyperlipidemia Lupus Dyslipidemia BLAS on CKD POA Bi V ICD ( [facility]) implanted in 2021 Atrial fibrillation on chronic anticoagulation Severe CAD with remote stent and CABG 7 years ago Remote Right occipital CVA in 2019 HOSPITAL COURSE: HPI This is a 63-year-old with a history of lupus, extensive cardiac disease that includes previous myocardial infarction, severe CAD with remote stent placement and CABG 7 years ago , hyperlipidemia, hypertension, remote right occipital CVA in 2019 and diastolic heart failure with EF of 40% in 2021, and AICD who came into the emergency department for evaluation of shortness breath. On arrival to the emergency department patient had a fever of 102.6 heart rate of 133 respiratory rate of 37 saturating 99% with 2 L and blood pressure was 115/74. On laboratory WBCs were 14.2 neutrophils 86.9 BNP 2250. Patient was assessed in room 211 awake alert and oriented x3. On BiPAP machine 08/08 with 60% FiO2 saturating 100%. We can start weaning down FiO2 and wean from BiPAP as tolerated. Patient is hemodynamically stable with a blood pressure 105/57 heart rate 101 she had a fever this morning of 101.1, chemistry potassium was 2.8 corrected per protocol pending repeat potassium level sodium was 128 chloride 92 total calcium was 7.5 magnesium 1.2 corrected per protocol. Kidneys are doing better with a creatinine 1.0 and GFR 63. Lactic acid 2.5. CK trended up at 192 and sensitive troponin trended up to 152 today. WBCs trending down 11.1 H&H 11.8/34.4 with a platelet count that is normal. Patient is negative for COVID and influenza strep. 2D echo pending for today cardiology consulted for NSTEMI. Hospital course Patient came to the hospital on 09/11/2024 for evaluation of shortness of breaths. She was transferred into ICU for worsening tachypnea and respiratory failure was placed on BiPAP and emergently intubated on 09/12/2024. Patient also has the high anion gap metabolic acidosis with BLAS started on bicarbonate supplementation. Patient has reduced ejection fraction heart failure which is acute and chronic and had decompensated further. In addition, patient has Gram- positive bacteremia with Staphylococcus epidermidis. She underwent trans esophageal echocardiogram without evidence of valve vegetation. Blood culture repeat has been negative. Patient was placed on Zyvox and meropenem. Infectious disease specialist or consulted. Patient remains on low-dose vasopressor but otherwise stable. She was then extubated two days later on 09/14. She fails to thrive and was very debilitated. On 09/16 patient had episode of respiratory distress with hypoxia and tachycardia was placed on BiPAP with resolution and hypoxia. Given that she decompensated, we are starting her on inotrope but she did not tolerate well with blood pressure with further dropping. She also decompensated in the afternoon with hypoxia and tachycardia so she was intubated on 09/16 after family requesting for full code status. Following day on 09/17 patient remains critically ill she further has worsening renal dysfunction and lactic acidosis. Patient remains on three vasopressor support and family eventually requested for withdrawal of care. She was withdrawan of care and was pronounced at 11:17 A.M. PROCEDURES: Intubation Central line placement Arterial line placement DISCHARGE MEDICATIONS: NA Patient at discharge. PCP notified of patients admission, hospital course and discharge. PHYSICAL EXAM: GENERAL: unresponsive, pale HEENT: No pupilary reaction to light. NECK: Supple LUNGS: No breath sounds HEART: No heart sound, asystole on EKG ABD: Soft EXT: Pale NEURO: Unresponsive. FOLLOW-UP: To [facility] RECOMMENDATIONS: Family support This case was seen and discussed with my supervising physician. More than 35 minutes spent on discharge process, including evaluation of the patient, discussion with nursing staff, medication reconciliation and follow-up appointments ANNIE [facility] Sep 17, 2024 15:48
== END 2024-09-17 11:17 | DRG 871 ==
LOC: EDH 19:46 → EDHIP 21:10 → 2CV 09-11 03:11 → 2AH 09-11 15:27 → 2CH 09-12 05:30 → 2BH 09-15 17:33
PROVIDERS: ADMIT Internal Medicine; ATTEND Internal Medicine
PROC: 5A09357 Assistance with Respiratory Ventilation, Less than 24 Consecutive Hours, Continuous Positive Airway Pressure (ICD-10-PCS; 2024-09-10)
PROC: 5A09357 Assistance with Respiratory Ventilation, Less than 24 Consecutive Hours, Continuous Positive Airway Pressure (ICD-10-PCS; 2024-09-11)
PROC: 0BH17EZ Insertion of Endotracheal Airway into Trachea, Via Natural or Artificial Opening (ICD-10-PCS; principal; 2024-09-12)
PROC: 5A1945Z Respiratory Ventilation, 24-96 Consecutive Hours (ICD-10-PCS; 2024-09-12)
PROC: 5A09357 Assistance with Respiratory Ventilation, Less than 24 Consecutive Hours, Continuous Positive Airway Pressure (ICD-10-PCS; 2024-09-12)
PROC: 5A09357 Assistance with Respiratory Ventilation, Less than 24 Consecutive Hours, Continuous Positive Airway Pressure (ICD-10-PCS; 2024-09-16)
PROC: 03HB33Z Insertion of Infusion Device into Right Radial Artery, Percutaneous Approach (ICD-10-PCS; 2024-09-16)
PROC: 0BH17EZ Insertion of Endotracheal Airway into Trachea, Via Natural or Artificial Opening (ICD-10-PCS; 2024-09-16)
PROC: 5A1935Z Respiratory Ventilation, Less than 24 Consecutive Hours (ICD-10-PCS; 2024-09-16)
DX: A41.2 Sepsis due to unspecified staphylococcus (principal); G93.41 Metabolic encephalopathy; I50.43 Acute on chronic combined systolic (congestive) and diastolic (congestive) heart failure; R65.21 Severe sepsis with septic shock; J18.9 Pneumonia, unspecified organism; J96.01 Acute respiratory failure with hypoxia; K72.00 Acute and subacute hepatic failure without coma; I21.A1 Myocardial infarction type 2; E27.40 Unspecified adrenocortical insufficiency; E87.1 Hypo-osmolality and hyponatremia; E87.20 Acidosis, unspecified; I13.0 Hypertensive heart and chronic kidney disease with heart failure and stage 1 through stage 4 chronic kidney disease, or unspecified chronic kidney disease; I47.20 Ventricular tachycardia, unspecified; M62.82 Rhabdomyolysis; N17.9 Acute kidney failure, unspecified; Z20.822 Contact with and (suspected) exposure to COVID-19; Z66 Do not resuscitate; N18.31 Chronic kidney disease, stage 3a; B96.89 Other specified bacterial agents as the cause of diseases classified elsewhere; D69.6 Thrombocytopenia, unspecified; E16.2 Hypoglycemia, unspecified; E78.5 Hyperlipidemia, unspecified; E87.6 Hypokalemia; E87.8 Other disorders of electrolyte and fluid balance, not elsewhere classified; I08.1 Rheumatic disorders of both mitral and tricuspid valves; I25.10 Atherosclerotic heart disease of native coronary artery without angina pectoris; I48.91 Unspecified atrial fibrillation; R57.0 Cardiogenic shock; I25.2 Old myocardial infarction; Z79.01 Long term (current) use of anticoagulants; Z79.899 Other long term (current) drug therapy; Z86.73 Personal history of transient ischemic attack (TIA), and cerebral infarction without residual deficits; Z95.5 Presence of coronary angioplasty implant and graft; Z95.810 Presence of automatic (implantable) cardiac defibrillator
CPT/HCPCS: 31500; 36415; 36569; 36600; 71045; 76376; 80048; 80053; 81001; 82010; 82435; 82550; 82803; 82947; 82948; 83540; 83550; 83605; 83735; 83880; 83930; 84100; 84132; 84145; 84295; 84443; 84484; 85018; 85025; 85027; 85730; 87040; 87071; 87086; 87186; 87205; 87426; 87804; 87880; 92610; 93005; 93306; 93312; 93325; 93356; 93970; 93971; 94002; 94003; 94640; 94660; 94664; 96365; 96368; 99291; C1751; C1894; G0378; J0282; J0456; J1650; J1720; J1815; J1940; J2020; J2060; J2185; J2260; J2270; J2371; J2470; J2543; J2704; J2919; J3010; J3475; J3480; J3490; J7050; J7060; J7070; A9900